=== PATIENT | female | born 1975 | race Caucasian/White ===

== ENCOUNTER → 2017-09-20 15:52 | Outpatient (CLI) | payer BC, SELFPAY ==
--- NOTE | 2017-09-20 15:57 | XR_ITS ---
XR knee LT 3V HISTORY: Left knee pain ITS.REASON: EFFUSION OFLEFT KNEE,LEFT KNEE PAIN ORDERING PHYSICIAN: Larissa Magallanes PATIENT AGE: 42 years COMPARISON: None FINDINGS: No fracture or dislocation. No lytic or blastic change. Normal mineralization. No significant arthritic changes evident. No other significant findings IMPRESSION: Negative Knee
== END ==
PROVIDERS: PCP Nurse Practitioner Family; Visit Provider Nurse Practitioner Family
DX: M25.462 Effusion, left knee (principal); M25.562 Pain in left knee
CPT/HCPCS: 73562

== ENCOUNTER → 2017-12-13 15:43 | Outpatient (CLI) | payer BC, SELFPAY ==
--- NOTE | 2017-12-13 15:46 | MR_ITS ---
MR knee LT wo con Ordering Physician: Tonie Dorsey Patient Age: 42 years: Female HISTORY: ITS.REASON: PAIN IN LEFT KNEE TECHNIQUE: Multiplanar multisequence imaging 1.5 T MR. COMPARISON :Plain films left knee 218 FINDINGS ACL and PCL intact. The medial collateral and lateral collateral ligament intact. Quadriceps tendon and patellar tendon intact Focal increased signal is seen at the medial aspect of the posterior patella likely reflecting bone contusion. I suspect there is a subtle chondral irregularity just beneath this area involving involving the medial aspect of posterior patella. Small joint effusion. Generous-sized patella. Only subtle lateral tilt or bias on the axial image. The cartilage posterior lateral aspect of patella is better maintained more homogeneous and intact The medial and lateral compartment are fairly well-maintained. No osteochondral defect. The medial lateral meniscus are intact IMPRESSION: 1. Osteochondral irregularity at medial aspect of patella. Chondral irregularities at medial aspect patella, along with focal area of increased bone just beneath the cartilage irregularity signal towards superior medial patella 2. Small joint effusion.
== END ==
PROVIDERS: PCP Nurse Practitioner Family; Visit Provider Nurse Practitioner
DX: M25.562 Pain in left knee (principal); M25.462 Effusion, left knee
CPT/HCPCS: 73721

== ENCOUNTER → 2018-04-01 14:23 | Outpatient (CLI) | payer BC, SELFPAY ==
--- NOTE | 2018-04-01 14:42 | XR_ITS ---
XR chest 2V HISTORY: ITS.REASON: ASTHMA,HTN ORDERING PHYSICIAN: Larissa Magallanes PATIENT AGE: 42 years COMPARISON: 02/21/2016 FINDINGS: Unremarkable cardiovascular structures. There is evidence of old granulomatous disease. No lobar consolidation or collapse. No acute bony anomalies. IMPRESSION: Old granulomatous disease, no change with no acute finding
[2018-04-01 15:52] LABS: Activated Partial Thrombo Time 25.8 seconds (23.6-34.0); INR 0.93 (0.9-1.1); Prothrombin Time 9.6 seconds (9.4-11.8)
[2018-04-01 15:55] LABS: Basophils % 0.5 % (0.1-2.0); Eosinophils # 0.1 K/mm3 (0.0-0.4); Eosinophils % 0.6 % (0.1-12.0); Hemoglobin 13.5 g/dL (12.2-16.2); Lymphocytes # 2.3 K/mm3 (0.7-4.5); Lymphocytes % 28.7 K/mm3 (10-50); Mean Corpuscular HGB Conc 32.1 g/dL (31.8-35.4); Mean Corpuscular Hemoglobin 30.1 pg (27.0-31.2); Mean Corpuscular Volume 93.9 fl (81-99); Mean Platelet Volume 6.8 fl (7.4-10.4); Monocytes # 0.6 K/mm3 (0.1-1.0); Monocytes % 6.9 % (1.7-9.3); Neutrophils % 63.3 % (37.0-80.0); Platelet Count 286 K/mm3 (142-424); Red Blood Count 4.47 M/mm3 (4.20-5.40); Red Cell Distribution Width 13.7 % (11.5-17.5)
[2018-04-01 16:50] LABS: Alanine Aminotransferase 37 U/L (12-78); Albumin Level 4.1 gm/dL (3.4-5.0); Albumin/Globulin Ratio 1.1 (1.1-1.8); Alkaline Phosphatase 69 U/L (46-116); Aspartate Amino Transferase 18 U/L (15-37); Bilirubin,Total 0.2 mg/dL (0.2-1.0); Blood Urea Nitrogen 18 mg/dL (7-18); Calcium 8.7 mg/dL (8.5-10.1); Carbon Dioxide 28 mmol/L (21.0-32.0); Chloride 102 mmol/L (98-107); Creatinine,Serum 0.89 mg/dL (0.55-1.02); Estimated Glomerular Filt Rate 69 ml/min (>60); GFR (African American) 83 ML/MIN (>60); Globulin 3.6 gm/dl (1.3-3.2); Glucose 84 mg/dL (74-106); Sodium 141 mmol/L (136-145); Total Protein,Serum 7.7 gm/dL (6.4-8.2)
== END ==
PROVIDERS: PCP Nurse Practitioner Family; Visit Provider Nurse Practitioner Family
DX: Z01.818 Encounter for other preprocedural examination (principal)
CPT/HCPCS: 36415; 71046; 80053; 85025; 85610; 85730; 93005

== ENCOUNTER 2020-08-09 11:18 | Emergency (ER) | payer BC, SELFPAY ==
[2020-08-09 12:12] VITALS: BP 134/83; PULSE 81; RESP 16; TEMP 36.8; O2SAT 98; BMI 23.8
--- NOTE | 2020-08-09 12:15 | HMH.EDUTC ---
[facility] [place] Clinical Impression: Encounter for laboratory testing for COVID-19 virus Disposition: Home, Self-Care Condition on Discharge: Good Instructions: DI for COVID-19 (Suspected or Confirmed ), Coronavirus Disease 2019, COVID-19: Testing and Tracing, Preventing the Spread of Coronavirus Discharge Instructions Additional Instructions: *Monitor Temp, Over the counter Motrin or Tylenol as directed/as needed Tylenol every 4 hours and Motrin every 6 hours (as long as your family doctor has told you that you can take it) for fever or pain. and straight to ER if unable to lower temp less than 101.0 after medication given Follow up IMMEDIATELY for new or worsening symptoms or no Noticeable improvement over the next 48-72 hours. 911 for difficulty breathing or swallowing You were tested for today for COVID19 your test result should be back in the next 24-48 hours, you may call to the [facility] to see if your test results are back in the next 48 hours [phone] [facility] hours are 9am-9pm You was given a handout with instructions for Self Quarantine and Self isolation for while you wait on test results and what to do if they are positive If you are positive the Health Dept will be contacting you also Referrals: Marco Girard MD [Primary Care Provider] - As needed Time of Disposition: 12:15 Medical Decision Making - David Inquiry Pt receiving controlled substance: No David was queried for this patient: No Vital Signs: 08/09/20 12:12 Temperature 98.2 F Temperature Source Oral Pulse Rate [Right] 81 Respiratory Rate 16 Blood Pressure [Right Arm] 134/83 Blood Pressure Mean [Right Arm] 100 Blood Pressure Source [Right Arm] Automatic Cuff Blood Pressure Position [Right Arm] Sitting 02 Sat by Pulse Oximetry 98 Oxygen Delivery Method Room Air Orders (Tests/Meds): ORDERS Category Date Time Status Covid-19 Nasal PCR ([facility]) Routine Lab 08/09/20 11:24 [place] [facility] [place] - General Stated complaint: wants covid test Time Seen by Provider: 08/09/20 12:16 Mode of Arrival: Ambulatory Source of Information: Patient Limitations: No Limitations Description of Symptoms (Recalled from Triage Doc. by RN): needs covid exam for procedure on wednesday HEENT Symptoms (Recalled from RN notes): No Resp Symptoms (Recalled from RN notes): No Skin Symptoms (Recalled from RN notes): No MS Symptoms (Recalled from RN notes): No Functional Status (Recalled from RN notes): na - History of Present Illness Provider Complaint: Patient state that she is suppose to have Procedure done on Wednesday so she come in today to get her COVID test and they was unable to find the order from Dr Ramsay so they had her come to the [facility] to get tested Denies any sympotms - Related Data Previous Rx's Medication Instructions Recorded Albuterol Sulfate [Albuterol HFA 1 - 2 puffs IH Q4-6H PRN #1 inh 10/23/18 Inhaler] Azithromycin [Z-Thomas 250mg Tab*] 250 mg PO UD DOSE PK #6 tab 10/23/18 Promethazine/Dextromethorphan 5 ml PO Q6HP PRN #240 syrup 10/23/18 [Promethazine-Dm Syrup] Hydrocodone/Chlorphen P-Stirex 5 ml PO BID 3 Days #49 thao.er.12h 03/29/19 [Tussionex Pennkinetic Susp] levoFLOXacin [Levaquin 750mg 750 mg PO DAILY #5 tab 03/29/19 tablet] predniSONE [Prednisone 50mg Tab] 50 mg PO DAILY 5 Days #5 tab 03/29/19 Azithromycin [Z-Thomas 250mg Tab*] 250 mg PO UD DOSE PK #6 tab 08/13/19 Benzonatate [Tessalon Perle 100mg 100 mg PO TIDP PRN #30 cap 08/13/19 Cap] Ondansetron [Zofran 4mg ODT] 4 mg PO Q8HP PRN #20 tab.rapdis 08/13/19 Allergies Allergy/AdvReac Type Severity Reaction Status Date / Time Penicillins [PENICILLINS] Allergy Mild Verified 10/23/18 09:57 hydrocodone Allergy Verified 08/13/19 18:30 - Worker's Comp Is this a Worker's Comp case?: No [facility] History - Hepatitis A Screen Drug use history?: No High risk sexual behaviors?: No History of sexually transmitted infection?: No 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
[2020-08-09 12:24] VITALS: BP 134/80; PULSE 80; RESP 16; TEMP 36.9; O2SAT 98
== END 2020-08-09 12:25 | disposition home or self-care (01) ==
PROVIDERS: Emergency Provider Nurse Practitioner; PCP Family Medicine
DX: Z11.52 Encounter for screening for COVID-19 (principal)
CPT/HCPCS: 99202; G0463; U0003

== ENCOUNTER 2020-08-12 07:28 | Day surgery (SDC) | payer BC, SELFPAY ==
[2020-08-12 07:56] VITALS: BMI 23.8
[2020-08-12 07:57] VITALS: BP 121/79; PULSE 82; RESP 16; TEMP 36.7; O2SAT 100
[2020-08-12 08:24] VITALS: O2SAT 97
--- NOTE | 2020-08-12 08:29 | P.PN_ITS ---
[facility] Anesthesia Checklist - Patient Identification Patient Identification: Arm Band - Structural Data Admitted From: Home Planned Operative Procedure/s: egd Consent for Planned Operative Procedure(s) Verified: Yes Verified Documents: Surgical Consent, History and Physical - NPO Status Verified Time NPO: 00:00 - Additional verifications Anesthesia Reactions: No - Airway Assessment C-Spine Mobility Assessed: Yes (mp2) TMJ Mobility Assessed: Yes Dentition: Good Dentition - Neurological Assessment Level of Consciousness: Awake, Alert - Anesthesia Plan Anesthesia Risk discussed: Yes Anesthesia Plan: Verified ASA Class: II Anesthesia Type: MAC [facility] History I have reviewed the patient's past medical history: Yes 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: Reports:: Asthma, Cancer (sm intestine ca), Hypertension, Palpitations Denies:: Diabetes Mellitus Type 1, Diabetes Mellitus Type 2, Internal Pacemaker, MRSA, Seizures *Have you ever received a pneumonia vaccine?: Yes *Have you received a flu vaccine this season?: Yes Anesthesia experience/problems:: nac Other Surgeries: Yes: Dilation and Curettage, Hysterectomy-Total, Other. No: Pacemaker Amputation: No Fractures: No - *Social History Last grade of school completed: Advanced degree Smoking Status: Never smoker Alcohol Intake: current Alcohol Intake Frequency:: a few times a week Substance Use Type: denies use *Occupational Status:: employed Housing: house Household Members: spouse *Travel in the last 8 weeks: None Family Hx:: Hyperlipidemia, Hypertension, Stroke
--- NOTE | 2020-08-12 08:31 | P.PCN_ITS ---
[facility] Procedure Note Procedure Note:: Upper Endoscopy Procedure Report: Esophagogastroduodenoscopy with cold biopsies and TTS balloon dilation Endoscopost: Kai Ramsay II, MD Referring Physician: Marco Girard MD Date of Procedure: August 12, 2019 Equipment: Olympus GIF 180 standard upper endoscope Sedation: MAC sedation Indications: Mrs. Hein is a 45-year-old female who is here for diagnostic/therapeutic upper endoscopy secondary to dysphagia. This has been going on over the last year. She has had increased choking and coughing with foods and has had more frequent clearance of the throat. She has globus sensation. She reports minor belching. She does not report heartburn or reflux. This is controlled with Protonix which she has been on for more than 14 years. 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 Mook Looney). She did have an upper endoscopy approximately 5 years ago which was normal. She does state that hydroxychloroquine has improved her bowel function. She reports no abdominal pain, chest pain or dyspepsia. She reports no nausea, early satiety or weight loss. She does report occasional bloating. Procedure: Prior to the procedure, a history and physical exam was performed, and patient's medications and allergies were reviewed. The risks, benefits and alternatives of the sedation and procedure were discussed with the patient. All questions were answered and informed consent was obtained. The patient was brought to the procedure room. Patient identification and proposed procedure were verified by the physician and the nurse. The patient was placed in a left lateral decubitus position and the scope was passed under direct vision. Throughout the procedure, the patient's blood pressure, pulse, and oxygen saturations were monitored continuously. The upper GI endoscopy was accomplished without difficulty. The patient tolerated the procedure well. Findings: The scope was passed directly into the upper esophagus and advanced to both the afferent and efferent limbs of the Hussein-en-Y anatomy post Whipple. Cold biopsies were taken from the jejunum. There was mild lymphoid stasis and bile reflux. The scope was then withdrawn through a normal bulb and pylorus. There was some erosion of the pyloric channel. There was also bile reflux within the stomach with linear reactive gastropathy of the antrum and body of the stomach. The remainder of the antrum, body and fundus of the stomach were grossly normal. Upon retroflexion there was a very small sliding 1 to 2 cm hiatal hernia. 2 biopsies were taken in the antrum and along the lesser curvature for histology to rule out gastritis and/or H pylori. The scope was then withdrawn into the esophagus. There was a serrated Z-line. Cold biopsies were taken at the GE junction. There were tertiary contractions and evidence of moderate esophageal dysmotility. The entire esophagus was dilated to 60 Taiwanese/20 mm with a TTS hydrostatic balloon. There was some resistance at the cricopharyngeus/cricopharyngeal spasm. The remainder of the esophageal mucosa was normal. Impression: 1. Cricopharyngeal spasm status post dilation to 20 mm 2. Nonerosive GERD with moderate esophageal dysmotility and very small sliding 1 to 2 cm hiatal hernia 3. Bile reflux with linear reactive gastropathy 4. Pyloric sparing Whipple with Hussein-en-Y anatomy 5. Pyloric channel erosion/reactive gastropathy Plan: I will follow-up the biopsies. We will discuss causes of her globus sensa tion and choking. I do feel that some of this is functional GERD. We will discuss dietary measures and treatment options.
[2020-08-12 08:43] VITALS: BP 111/66; PULSE 84; RESP 18; TEMP 36.7; O2SAT 100
[2020-08-12 08:53] VITALS: BP 124/67; PULSE 76; RESP 18; O2SAT 99
[2020-08-12 09:03] VITALS: BP 120/72; PULSE 72; RESP 18; O2SAT 100
[2020-08-12 09:16] VITALS: BP 118/66; PULSE 75; RESP 18; O2SAT 100
== END 2020-08-12 09:30 | disposition home or self-care (01) ==
PROVIDERS: PCP Family Medicine; Visit Provider Internal Medicine Gastroenterology
PROC: 0DJ08ZZ Inspection of Upper Intestinal Tract, Via Natural or Artificial Opening Endoscopic (ICD-10-PCS; CPT 43235; principal; 2020-08-12 12:00)
DX: R13.10 Dysphagia, unspecified (principal); J45.909 Unspecified asthma, uncomplicated; L94.9 Localized connective tissue disorder, unspecified; I10 Essential (primary) hypertension; K21.9 Gastro-esophageal reflux disease without esophagitis; K44.9 Diaphragmatic hernia without obstruction or gangrene; K22.4 Dyskinesia of esophagus; K31.9 Disease of stomach and duodenum, unspecified; J39.2 Other diseases of pharynx; Z85.068 Personal history of other malignant neoplasm of small intestine; Z83.438 Family history of other disorder of lipoprotein metabolism and other lipidemia; Z82.49 Family history of ischemic heart disease and other diseases of the circulatory system; Z82.3 Family history of stroke; Z90.710 Acquired absence of both cervix and uterus; Z88.5 Allergy status to narcotic agent; Z88.0 Allergy status to penicillin
CPT/HCPCS: 43249; 43239; C1726

== ENCOUNTER → 2020-08-20 14:22 | Outpatient (CLI) | payer BC, SELFPAY ==
--- NOTE | 2020-08-20 14:34 | XR_ITS ---
PROCEDURE: XR KNEE LT 4V CLINICAL INDICATION: left knee pain COMPARISON: DX [id number] XR knee LT 3V from 09/20/2017 FINDINGS: No fracture or dislocation. No lytic or blastic change. There is normal mineralization. The joint spaces are well-preserved. No significant degenerative/arthritic changes. No erosive changes evident. Other findings:None. IMPRESSION: No acute findings. Dictated by: Krishan Gibbs MD 08/20/2020 18:31 Krishan Gibbs MD in [place] 08/20/2020 18:31
== END ==
PROVIDERS: PCP Family Medicine; Visit Provider Orthopaedic Surgery
DX: M25.562 Pain in left knee (principal)
CPT/HCPCS: 73564

== ENCOUNTER → 2020-08-23 13:35 | Outpatient (CLI) | payer BC, SELFPAY ==
--- NOTE | 2020-08-23 13:35 | MR_ITS ---
PROCEDURE: MR KNEE LT WO CON CLINICAL INDICATION: LEFT KNEE PAIN SUPERIOR AND POSTERIOR TO PATELLA WITH NO KNOWN INJURY. EVALUATE FOR MENISCAL TEAR. COMPARISON: CR XR KNEE LT 4V from 08/20/2020 TECHNIQUE: Routine multiplanar multi echo sequences are performed without gadolinium enhancement. FINDINGS: Cruciate ligaments, and the medial collateral ligament has unremarkable appearance. There is thinning the fibular collateral ligament which could represent an old injury. There is a small amount of fluid deep to the fibular collateral ligament. No meniscal tear is evident. There is a small knee joint effusion. There is marked thinning/loss of the patellar cartilage medially with some subchondral cystic change of the patella at this area. The patellar tendon and quadriceps tendon are intact. The meniscofemoral ligaments appear intact. No evidence of patellar subluxation. IMPRESSION: 1. Thinning of the fibular collateral ligament which could be due to a partial tear. 2. 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 Dictated by: Krishan Gibbs MD 08/24/2020 06:32 Krishan Gibbs MD in [facility] 08/24/2020 06:32
== END ==
PROVIDERS: PCP Family Medicine; Visit Provider Orthopaedic Surgery
DX: M25.562 Pain in left knee (principal); G89.29 Other chronic pain
CPT/HCPCS: 73721

== ENCOUNTER 2020-09-10 15:46 | Outpatient (RCR) | payer BC, SELFPAY ==
--- NOTE | 2020-09-10 16:51 | HMH.PTOPEV ---
PT Outpatient Evaluation Rehab PT Outpatient Evaluation Start: 09/10/20 15:53 Freq: Status: Active Protocol: Document 09/10/20 15:54 JHONNYKATTY (Rec: 09/10/20 16:51 MARYJO [id number]) Electronically Signed By Almas Buchanan PT 09/10/20 15:54 Outpatient Therapy Subjective History Subjective History This is the initial Physical Therapy evaluation for Shaila Hein. Pt is a 45 y/o female referred to PT for c/o L knee pain. Pt reports she began having pain in L knee ~ 5 years ago. Pt reports insidious onset of pain, no traumatic incident. Pt reports she had steroid injxn and therapy previously without relief. Pt reports ~ 3 years ago she had arthroscopic sx for patellar cartilage debridement. Pt reports no pain relief w/ this either. Pt states she saw a new orthopedic sx and had another steroid injxn. Pt states this gave some relief for about a week . Pt now reports to PT for aquatic therapy. Chief Complaint Pain,Stiff Symptom Type Ache,Throb Symptoms Relieved By Nothing Symptoms Aggravated By Physical Activity Prior Functional Limitations None Current Functional Limitations Squatting,Recreation Activity, Walking,Stairs Symptom Description Intermittent Level of pain today (0-10) 0 Pain scale - at its best (0-10) 0 Pain scale - at its worst (0-10) 7 Hip/Knee Eval Gait Observation General Gait Pattern Observation No Deviations/Normal Assistive Device Assistive Devices None / NA Palpation Tenderness left Knee Palpation Finding None/Normal Hip Palpation Findings None/Normal MMT Hip Abduction Strength Grade 4 Good Hip Adduction Strength Grade 4 Good Hip External Rotation Strength Grade 4 Good Hip Internal Rotation Strength Grade 4 Good Knee Extension Strength Grade 5 Normal Knee Flexion Strength Grade 5 Normal ROM bilateral Hip ROM Reason Not Measured Within Functional Limits Knee Extension Active Range of Motion ( 0 degrees) Knee Extension Passive Range of Motion ( 0 degrees) Knee Flexion Active Range of Motion ( 130 degrees)
== END 2020-09-10 15:55 | disposition home or self-care (01) ==
LOC: PT 15:46
PROVIDERS: PCP Family Medicine; Visit Provider Orthopaedic Surgery
DX: M17.12 Unilateral primary osteoarthritis, left knee (principal)
CPT/HCPCS: 97110; 97163

== ENCOUNTER 2021-02-22 14:12 | Emergency (ER) | payer BC, SELFPAY ==
[2021-02-22 14:32] VITALS: BP 138/75; PULSE 69; RESP 14; TEMP 36.7; O2SAT 99; BMI 23.6
--- NOTE | 2021-02-22 14:51 | HMH.EDUTC ---
[facility] [place] Disposition Clinical Impression: Vaccine for [id number], combined Disposition: Home, Self-Care Condition on Discharge: Good Instructions: Diphtheria, Tetanus, and Pertussis (DTaP) Vaccine Additional Instructions: follow up if any s/s of infection Referrals: Marco Girrad MD [Primary Care Provider] - Time of Disposition: 14:59 Medical Decision Making - David Inquiry Pt receiving controlled substance: No Vital Signs: 02/22/21 14:32 Temperature 98.1 F Temperature Source Oral Pulse Rate [Left] 69 Respiratory Rate 14 Blood Pressure [Right Arm] 138/75 Blood Pressure Mean [Right Arm] 96 02 Sat by Pulse Oximetry 99 Oxygen Delivery Method Room Air Orders (Tests/Meds): ED MEDICATIONS Discontinued Medications Generic Name Dose Route Start Last Admin Trade Name Freq PRN Reason Stop Dose Admin Tetanus/Reduced Diphtheria/Acell Pertussis 0.5 ml 02/22/21 14:39 02/22/21 14:43 Tet/Diphth/Pert-Adult 0.5ml Syringe IM 02/22/21 14:40 0.5 ml .ONCE ONE Administration [facility] [place] HPI - General Chief complaint: Urgent Treatment Center Stated complaint: AO 02/22/21 cut head on ladder Time Seen by Provider: 02/22/21 14:51 Mode of Arrival: Ambulatory Source of Information: Patient Limitations: No Limitations Description of Symptoms (Recalled from Triage Doc. by RN): pt accidentally hit her head on the under side of a ladder. pt has a scratch on her forehead. she does not want seen for anything besides a tetnus shot. HEENT Symptoms (Recalled from RN notes): No Resp Symptoms (Recalled from RN notes): No Skin Symptoms (Recalled from RN notes): No MS Symptoms (Recalled from RN notes): No Functional Status (Recalled from RN notes): na - History of Present Illness Provider Complaint: 45 yr old female presents for a tetnus vaccine.pt accidentally hit her head on the under side of a ladder. pt has a scratch on her forehead. she does not want seen for anything besides a tetnus shot - Related Data Home Medications Medication Instructions Recorded Confirmed Amitriptyline HCl 75 mg PO DAILY 08/12/20 10/30/20 Fluticasone Propionate [Flonase 1 spray NS DAILY 08/12/20 10/30/20 Allergy Relief NS] Fluticasone/Vilanterol [Breo 1 inh IH DAILY 08/12/20 10/30/20 Ellipta 200-25 Mcg INH] Hydroxychloroquine Sulfate 200 mg PO BID 08/12/20 10/30/20 [Plaquenil] Levocetirizine Dihydrochloride 10 mg PO DAILY 08/12/20 10/30/20 [Xyzal] Lisinopril/Hydrochlorothiazide 1 tab PO DAILY 08/12/20 10/30/20 [Zestoretic 10-12.5 mg Tablet] Montelukast Sodium [Singulair 10mg 10 mg PO PM 08/12/20 10/30/20 tablet] Naproxen [Naproxen 250mg Tab] 250 mg PO BID 08/12/20 10/30/20 Nebivolol HCl [Bystolic] 10 mg PO DAILY 08/12/20 10/30/20 Pantoprazole Sodium [Protonix 40mg 40 mg PO DAILY 08/12/20 10/30/20 (granule) packet] Tiotropium [place] [Spiriva 4 gm IH DAILY 08/12/20 10/30/20 Respimat] sulfaSALAzine [Sulfasalazine] 500 mg PO BID 08/12/20 10/30/20 levocetirizine 5 mg tablet 5 mg PO DAILY 08/20/20 10/30/20 Previous Rx's Medication Instructions Recorded Albuterol Sulfate [Albuterol HFA 1 - 2 puffs IH Q4-6H PRN #1 inh 10/23/18 Inhaler] Allergies Allergy/AdvReac Type Severity Reaction Status Date / Time Penicillins [PENICILLINS] Allergy Mild Verified 02/22/21 14:39 hydrocodone Allergy Verified 02/22/21 14:39 - Worker's Comp Is this a Worker's Comp case?: No [facility] History - Hepatitis A Screen Drug use history?: No High risk sexual behaviors?: No History of sexually transmitted infection?: No 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er?: No Do you have indoor plumbing?: Yes Do you have electricity?: Yes Attestation statement:: This patient has been screened for Hepatitis A risk factors. I have reviewed the patient's past medical history: Yes 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: Reports:: Anxiety, Asthma, Cancer, Hypertension, Palpitations Denies:: Diabetes Mellitus Type 1, Di
[2021-02-22 15:09] VITALS: BP 132/74; PULSE 65; RESP 14; TEMP 36.6
== END 2021-02-22 15:12 | disposition home or self-care (01) ==
PROVIDERS: Emergency Provider Nurse Practitioner Family; PCP Family Medicine
DX: S00.81XA Abrasion of other part of head, initial encounter (principal); W22.8XXA Striking against or struck by other objects, initial encounter; Y92.019 Unspecified place in single-family (private) house as the place of occurrence of the external cause; Z23 Encounter for immunization; F41.9 Anxiety disorder, unspecified; I10 Essential (primary) hypertension; J45.909 Unspecified asthma, uncomplicated; Z85.028 Personal history of other malignant neoplasm of stomach
CPT/HCPCS: 90471; 90715; 99202; G0463

== ENCOUNTER → 2021-06-27 16:17 | Outpatient (CLI) | payer BC, SELFPAY ==
[2021-06-27 17:29] LABS: Basophils # 0.1 K/mm3 (0-0.2); Basophils % 0.9 % (0.1-2.0); Eosinophils # 0.1 K/mm3 (0.0-0.4); Eosinophils % 0.8 % (0.1-12.0); Hemoglobin 13.2 g/dL (12.2-16.2); Lymphocytes # 2.1 K/mm3 (0.7-4.5); Mean Corpuscular HGB Conc 33.1 g/dL (31.8-35.4); Mean Corpuscular Hemoglobin 31.5 pg (27.0-31.2); Mean Corpuscular Volume 95.3 fl (81-99); Mean Platelet Volume 7.7 fl (7.4-10.4); Monocytes # 0.5 K/mm3 (0.1-1.0); Neutrophils # 4.9 K/mm3 (1.8-7.8); Neutrophils % 64.3 % (37.0-80.0); Platelet Count 321 K/mm3 (142-424); Red Cell Distribution Width 14.2 % (11.5-17.5); White Blood Count 7.5 K/mm3 (4.8-10.8)
[2021-06-27 17:40] LABS: Alanine Aminotransferase 32 U/L (12-78); Albumin Level 4.4 g/dl (3.5-5.0); Albumin/Globulin Ratio 1.7 (1.1-1.8); Alkaline Phosphatase 64 U/L (38-126); Anion Gap 9.7 mEq/L (5-15); Aspartate Amino Transferase 42 U/L (14-36); Bilirubin,Total 0.2 mg/dl (0.2-1.3); Blood Urea Nitrogen 12 mg/dl (7-17); Carbon Dioxide 30 mmol/L (22.0-30.0); Chloride 100 mmol/L (98-107); Estimated Glomerular Filt Rate 90 ml/min (>60); GFR (African American) 109 ML/MIN (>60); Globulin 2.6 g/dL (1.3-3.2); Glucose 82 mg/dl (74-100); Potassium 4.7 mmoL/L (3.5-5.1); Sodium 135 mmol/L (136-145)
[2021-06-27 17:45] LABS: C-Reactive Protein 2.2 mg/L (0-4)
[2021-06-27 18:28] LABS: Erythrocyte Sedimentation Rate 14 mm/hr (0-20)
[2021-06-27 20:51] LABS: 25-OH Vitamin D, Total 46.4 ng/mL (30-100)
[2021-07-02 00:07] LABS: Immunoglobulin E, Total 15 IU/mL (6-495)
== END ==
PROVIDERS: Nurse Practitioner; Visit Provider Internal Medicine Rheumatology
DX: M06.09 Rheumatoid arthritis without rheumatoid factor, multiple sites (principal); R76.8 Other specified abnormal immunological findings in serum; J45.50 Severe persistent asthma, uncomplicated
CPT/HCPCS: 36415; 80053; 82306; 82785; 85025; 85651; 86140

== ENCOUNTER → 2021-07-08 16:38 | Outpatient (CLI) | payer BC, SELFPAY | PROVIDERS: PCP Family Medicine; Visit Provider Nurse Practitioner | DX: Z20.822 Contact with and (suspected) exposure to COVID-19 (principal) | CPT/HCPCS: C9803; U0003; U0005 ==

== ENCOUNTER → 2021-09-15 15:14 | Outpatient (CLI) | payer BC, SELFPAY | PROVIDERS: PCP Family Medicine; Visit Provider Nurse Practitioner | DX: Z20.822 Contact with and (suspected) exposure to COVID-19 (principal) | CPT/HCPCS: C9803; U0003; U0005 ==

== ENCOUNTER → 2021-09-24 16:10 | Outpatient (CLI) | payer BC, SELFPAY ==
--- NOTE | 2021-09-24 16:21 | XR_ITS ---
PROCEDURE INFORMATION: Exam: XR Left Hand Exam date and time: 09/24/2021 4:21 PM Age: 46 years old Clinical indication: Screening exam; Evaluate for ild , [facility] use of drug , lilli positive; Additional info: Polyarthritis w/ negative rheumatoid factor, bilat hand pain TECHNIQUE: Imaging protocol: XR Left hand. Views: 3 or more views. COMPARISON: No relevant prior studies available. FINDINGS: Bones/joints: Osseous anatomic alignment is well preserved. No acutely displaced fracture or dislocation. Joint spaces are well preserved. Soft tissues: No significant soft tissue swelling. IMPRESSION: 1. No acute skeletal pathology. 2. No osseous sequela of inflammatory arthropathy.
--- NOTE | 2021-09-24 16:21 | XR_ITS ---
PROCEDURE INFORMATION: Exam: XR Right Hand Exam date and time: 09/24/2021 4:21 PM Age: 46 years old Clinical indication: Screening exam; Polyarthritis w/ negative rheumatoid factor, bilat hand pain TECHNIQUE: Imaging protocol: XR Right hand. Views: 3 or more views. COMPARISON: No relevant prior studies available. FINDINGS: Bones/joints: Osseous anatomic alignment is well preserved. No acutely displaced fracture or dislocation. Joint spaces are well preserved. Soft tissues: No significant soft tissue swelling. IMPRESSION: 1. No acute skeletal pathology. 2. No osseous sequela of inflammatory arthropathy.
--- NOTE | 2021-09-24 16:21 | XR_ITS ---
PROCEDURE INFORMATION: Exam: XR Chest Exam date and time: 09/24/2021 4:21 PM Age: 46 years old Clinical indication: Screening exam; Other screening; Additional info: Evaluate for ild, [employer] use of drug; Gi positive TECHNIQUE: Imaging protocol: XR of the chest. Views: 2 views. COMPARISON: 1. CR XR CHEST 2V 08/13/2019 6:[address] CHEST W/O CONTRAST 07/14/2017 12:58 PM FINDINGS: Airway: Patent Lungs: Known and stable 3 mm calcified granuloma in the right upper lung is of no clinical concern. No acute interstitial or airspace disease. Pleural spaces: Unremarkable. No pleural effusion. No pneumothorax. Heart/Mediastinum: Calcified right hilar and mediastinal granulomas are stable and of no concern. Heart of normal size and morphology. 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 Bones/joints: No acute skeletal abnormality or aggressive osseous lesion. IMPRESSION: 1. No acute thoracic pathology. 2. No evidence for interstitial lung disease in this examination.
[2021-09-24 17:45] LABS: Alanine Aminotransferase 50 U/L (12-78); Albumin Level 4.6 g/dl (3.5-5.0); Albumin/Globulin Ratio 1.8 (1.1-1.8); Alkaline Phosphatase 77 U/L (38-126); Anion Gap 13.1 mEq/L (5-15); Aspartate Amino Transferase 61 U/L (14-36); Bilirubin,Total 0.6 mg/dl (0.2-1.3); Blood Urea Nitrogen 14 mg/dl (7-17); Calcium 8.8 mg/dl (8.4-10.2); Carbon Dioxide 26 mmol/L (22.0-30.0); Chloride 93 mmol/L (98-107); Estimated Glomerular Filt Rate 89 ml/min (>60); GFR (African American) 108 ML/MIN (>60); Globulin 2.6 g/dL (1.3-3.2); Glucose 84 mg/dl (74-100); Potassium 4.1 mmoL/L (3.5-5.1); Sodium 128 mmol/L (136-145); Total Protein,Serum 7.2 g/dl (6.3-8.2)
[2021-09-24 17:50] LABS: C-Reactive Protein 4.9 mg/L (0-4)
[2021-09-24 17:58] LABS: Basophils % 0.4 % (0.1-2.0); Eosinophils # 0.1 K/mm3 (0.0-0.4); Eosinophils % 0.6 % (0.1-12.0); Hematocrit 39.7 % (37.0-47.0); Hemoglobin 13.3 g/dL (12.2-16.2); Lymphocytes # 1.8 K/mm3 (0.7-4.5); Lymphocytes % 23.6 % (10-50); Mean Corpuscular HGB Conc 33.5 g/dL (31.8-35.4); Mean Corpuscular Hemoglobin 31.8 pg (27.0-31.2); Mean Corpuscular Volume 94.9 fl (81-99); Mean Platelet Volume 7.4 fl (7.4-10.4); Monocytes # 0.4 K/mm3 (0.1-1.0); Monocytes % 5.3 % (1.7-9.3); Neutrophils # 5.2 K/mm3 (1.8-7.8); Neutrophils % 69.9 % (37.0-80.0); Platelet Count 268 K/mm3 (142-424); Red Blood Count 4.19 M/mm3 (4.20-5.40); Red Cell Distribution Width 13.9 % (11.5-17.5); White Blood Count 7.5 K/mm3 (4.8-10.8)
[2021-09-24 18:25] LABS: Erythrocyte Sedimentation Rate 13 mm/hr (0-20)
== END ==
LOC: RAD 16:13
PROVIDERS: PCP Family Medicine; Visit Provider Internal Medicine Rheumatology
DX: M06.09 Rheumatoid arthritis without rheumatoid factor, multiple sites (principal); M79.641 Pain in right hand; M25.40 Effusion, unspecified joint; M25.50 Pain in unspecified joint; R76.8 Other specified abnormal immunological findings in serum; Z79.899 Other long term (current) drug therapy
CPT/HCPCS: 36415; 71046; 73130; 80053; 85025; 85651; 86140; 86704; 86706; 87340; 87350; 87380; 87522

== ENCOUNTER → 2021-09-29 11:52 | Outpatient (CLI) | payer BC, SELFPAY ==
[2021-10-01 22:25] LABS: QuantiFERON-TB Gold Plus Negative (Negative)
== END ==
PROVIDERS: Visit Provider Internal Medicine Rheumatology
DX: M06.09 Rheumatoid arthritis without rheumatoid factor, multiple sites (principal); R76.8 Other specified abnormal immunological findings in serum; Z79.899 Other long term (current) drug therapy
CPT/HCPCS: 36415; 86480

== ENCOUNTER → 2021-10-15 15:40 | Outpatient (CLI) | payer BC, SELFPAY ==
[2021-10-17 11:13] LABS: Hep B Core Ab, Total Negative (Negative); Hepatitis B Surface Antigen Negative (Negative)
[2021-10-24 13:55] LABS: Miscellaneous Test NEGATIVE
== END ==
PROVIDERS: PCP Family Medicine; Visit Provider Internal Medicine Rheumatology
DX: M06.09 Rheumatoid arthritis without rheumatoid factor, multiple sites (principal); R76.8 Other specified abnormal immunological findings in serum; Z79.899 Other long term (current) drug therapy
CPT/HCPCS: 86704; 87340; 87380

== ENCOUNTER 2021-10-29 04:43 | Emergency (ER) | payer BC, SELFPAY ==
[2021-10-29 04:45] VITALS: BP 128/76; PULSE 78; RESP 16; TEMP 37.1; O2SAT 98; BMI 23.8
--- NOTE | 2021-10-29 04:49 | XR_ITS ---
PROCEDURE INFORMATION: Exam: XR Left Ankle Exam date and time: 10/29/2021 4:53 AM Age: 46 years old Clinical indication: Injury or trauma; Other: Rolled/twisted ankle; Sprain or strain and swelling (edema); Right; Patient HX: Swelling to lateral malleolus TECHNIQUE: Imaging protocol: XR Left ankle. Views: 3 or more views. COMPARISON: MR KNEE LT WO CON 08/23/2020 1:46 PM FINDINGS: Bones/joints: No acute fracture or malalignment. Joint spaces are maintained. Soft tissues: Normal. IMPRESSION: No acute fracture or malalignment.
--- NOTE | 2021-10-29 05:06 | HMH.EDGENADL ---
ED Disposition Clinical Impression: Ankle sprain and strain Disposition: Home, Self-Care Condition on Discharge: Good Referrals: Larissa Magallanes APRN [Primary Care Provider] - - Critical Care Critical Care Time: No Attestation: On 10/29/21, the high probability of a clinically significant, sudden or life threatening deterioration of the following system(s) required my full and direct attention, intervention and personal management. The time I documented below is in addition to time spent performing reported procedures but includes the following listed in this critical care notation. Medical Decision Making - Medical Records Medical records reviewed: Yes: I reviewed the patient's medical records. - David Inquiry Pt receiving controlled substance: No Vital Signs: 10/29/21 04:45 Temperature 98.7 F Temperature Source Oral Pulse Rate [Left Radial] 78 Respiratory Rate 16 Blood Pressure [Right Arm] 128/76 Blood Pressure Mean [Right Arm] 93 02 Sat by Pulse Oximetry 98 Oxygen Delivery Method Room Air Orders (Tests/Meds): ORDERS Category Date Time Status Ankle XR - Left minimum 3 Views [XR ankle LT min 3V] Exams 10/29/21 04:49 Ordered Stat Medical Decision Narrative: Patient is a 46-year-old female presents the ED today for evaluation of left ankle pain after a fall. Patient is well-appearing on initial evaluation no acute distress, vital signs within normal limits and stable. We have gotten an x-ray 3 view of the left ankle, on my clinical examination I have low concern for fracture, however patient does have significant swelling on that side, will order rule out malleolar fracture. X-ray on independent interpretation does not show any evidence of fracture. Patient will be able to tolerate weightbearing, we have instructed on rest ice compression elevation therapy. Patient discharged in stable condition with return precautions and follow-up with primary care. General Adult HPI - General Chief complaint: Extremity Injury, Lower Stated complaint: AO stepped off step rolled ankle 0330 Time Seen by Provider: 10/29/21 05:06 Mode of Arrival: Ambulatory Limitations: No Limitations Description of Symptoms (Recalled from ER Triage Doc. by RN): PT REPORTS SHE TWISTED HER LEFT ANKLE AND IS NOW HAVING DULL PAIN. PT CAME WITH CRUTCHES FROM HOME. - History of Present Illness HPI narrative: Patient is a 46-year-old female who presents the ED today for further evaluation of left ankle pain. Patient was walking her dog earlier this morning, states that she rolled her ankle accidentally and has swelling on the lateral aspect of her left ankle. Patient states she is rolled her ankle in the past, but states that she felt a pop today, was having difficulty bearing weight, patient presents with crutches that they had at home from their son who had had multiple ankle injuries in the past. Patient states she did not fall pass out lose consciousness or hit her head. - Related Data Home Medications Medication Instructions Recorded Confirmed Amitriptyline HCl 75 mg PO DAILY 08/12/20 10/30/20 Fluticasone Propionate [Flonase 1 spray NS DAILY 08/12/20 10/30/20 Allergy Relief NS] Fluticasone/Vilanterol [Breo 1 inh IH DAILY 08/12/20 10/30/20 Ellipta 200-25 Mcg INH] Hydroxychloroquine Sulfate 200 mg PO BID 08/12/20 10/30/20 [Plaquenil] Levocetirizine Dihydrochloride 10 mg PO DAILY 08/12/20 10/30/20 [Xyzal] Lisinopril/Hydrochlorothiazide 1 tab PO DAILY 08/12/20 10/30/20 [Zestoretic 10-12.5 mg Tablet] Montelukast Sodium [Singulair 10mg 10 mg PO PM 08/12/20 10/30/20 tablet] Naproxen [Naproxen 250mg Tab] 250 mg PO BID 08/12/20 10/30/20 Nebivolol HCl [Bystolic] 10 mg PO DAILY 08/12/20 10/30/20 Pantoprazole Sodium [Protonix 40mg 40 mg PO DAILY 08/12/20 10/30/20 (granule) packet] Tiotropium [place] [Spiriva 4 gm IH DAILY 08/12/20 10/30/20 Respimat] sulfaSALAzine [Sulfasalazine] 500
[2021-10-29 05:52] VITALS: BP 128/76; PULSE 78; RESP 16; TEMP 37.1; O2SAT 98
== END 2021-10-29 05:55 | disposition home or self-care (01) ==
PROVIDERS: Emergency Provider Student in an Organized Health Care Education/Training Program; PCP Nurse Practitioner Family
DX: S93.402A Sprain of unspecified ligament of left ankle, initial encounter (principal); X50.1XXA Overexertion from prolonged static or awkward postures, initial encounter; Y93.K1 Activity, walking an animal; Y92.89 Other specified places as the place of occurrence of the external cause; F41.9 Anxiety disorder, unspecified; I10 Essential (primary) hypertension; R00.2 Palpitations; Z79.899 Other long term (current) drug therapy
CPT/HCPCS: 73610; 99283

== ENCOUNTER 2021-11-16 09:07 | Emergency (ER) | payer BC, SELFPAY ==
[2021-11-16 09:29] VITALS: BP 128/79; PULSE 81; RESP 19; TEMP 36.7; O2SAT 98; BMI 23.8
--- NOTE | 2021-11-16 09:54 | HMH.EDUTC ---
[facility] [place] Dis[place] Clinical Impression: Asthma exacerbation Qualifiers: Asthma severity: unspecified severity Asthma persistence: unspecified Qualified Code(s): J45.901 - Unspecified asthma with (acute) exacerbation Disposition: Home, Self-Care Condition on Discharge: Good Instructions: Asthma -- Adult, DI for Asthma -- Adult Additional Instructions: Drink plenty of fluids. Take tylenol or ibuprofen for pain or fever. Take the medications as directed. Follow up with your regular doctor. GO TO THE ER FOR ANY WORSENING SYMPTOMS The cough medication (promethazine dm) will make you drowsy, so don't drive or operate heavy machinery after taking it. Prescriptions: Promethazine/Dextromethorphan [Promethazine-Dm Syrup] 5 ml PO Q6HP PRN #240 ml PRN Reason: Cough [facility] Benzonatate [Benzonatate 100mg cap] 100 mg PO TIDP PRN #30 cap PRN Reason: Cough Transmission Status: Received by [facility] methylPREDNISolone [Medrol] 4 mg PO DIRECTED 6 Days #21 packet Transmission Status: Received by [facility] Azithromycin [Z-Thomas 250mg Tab*] 250 mg PO UD DOSE PK #6 tab Transmission Status: Received by [facility] Referrals: Ugo Contreras MD [Primary Care Provider] - Forms: Work/School Release Time of Disposition: 10:26 Medical Decision Making - Medical Records Medical records reviewed: No: I reviewed the patient's medical records. - David Inquiry Pt receiving controlled substance: No Vital Signs: 11/16/21 09:29 11/16/21 10:33 Temperature 98.1 F 98.1 F Temperature Source Oral Pulse Rate 81 Pulse Rate [Left] 81 Respiratory Rate 19 19 Blood Pressure 128/79 Blood Pressure [Right Arm] 128/79 Blood Pressure Mean [Right Arm] 95 02 Sat by Pulse Oximetry 98 - Lab Data Lab results reviewed: Yes: I reviewed the patient's lab results. [facility] [place] HPI - General Stated complaint: SOA, cough Time Seen by Provider: 11/16/21 09:54 Mode of Arrival: Ambulatory Source of Information: Patient Limitations: No Limitations Description of Symptoms (Recalled from Triage Doc. by RN): pt c/o SOA and cough. pt states her asthma has been really bad and she can't get it under control with her meds at home. x1wk HEENT Symptoms (Recalled from RN notes): No Resp Symptoms (Recalled from RN notes): Yes Skin Symptoms (Recalled from RN notes): No MS Symptoms (Recalled from RN notes): No Functional Status (Recalled from RN notes): wnl - History of Present Illness Provider Complaint: She states that she has had a cough, chest congestion, wheezing, and feeling bad for the past 1 week. She has a history of asthma. She has been using her nebulizers and inhalers at home, but she believes it is time to take steroids. - Related Data Home Medications Medication Instructions Recorded Confirmed Amitriptyline HCl 75 mg PO DAILY 08/12/20 10/30/20 Fluticasone Propionate [Flonase 1 spray NS DAILY 08/12/20 10/30/20 Allergy Relief NS] Fluticasone/Vilanterol [Breo 1 inh IH DAILY 08/12/20 10/30/20 Ellipta 200-25 Mcg INH] Hydroxychloroquine Sulfate 200 mg PO BID 08/12/20 10/30/20 [Plaquenil] Levocetirizine Dihydrochloride 10 mg PO DAILY 08/12/20 10/30/20 [Xyzal] Lisinopril/Hydrochlorothiazide 1 tab PO DAILY 08/12/20 10/30/20 [Zestoretic 10-12.5 mg Tablet] Montelukast Sodium [Singulair 10mg 10 mg PO PM 08/12/20 10/30/20 tablet] Naproxen [Naproxen 250mg Tab] 250 mg PO BID 08/12/20 10/30/20 Nebivolol HCl [Bystolic] 10 mg PO DAILY 08/12/20 10/30/20 Pantoprazole Sodium [Protonix 40mg 40 mg PO DAILY 08/12/20 10/30/20 (granule) packet] Tiotropium [place] [Spiriva 4 gm IH DAILY 08/12/20 10/30/20 Respimat] sulfaSALAzine [Sulfasalazine] 500 mg PO BID 08/12/20 10/30/20 levocetirizine 5 mg tablet 5 mg PO DAILY 08/20/20 10/30/20 Previous Rx's Medication Instructions Recorded Albuterol Sulfate [Albuterol HFA 1 - 2 puffs IH Q
[2021-11-16 10:33] VITALS: BP 128/79; PULSE 81; RESP 19; TEMP 36.7
== END 2021-11-16 10:41 | disposition home or self-care (01) ==
PROVIDERS: Emergency Provider Nurse Practitioner Family; PCP Family Medicine
DX: J45.901 Unspecified asthma with (acute) exacerbation (principal); R00.2 Palpitations; I10 Essential (primary) hypertension; M19.90 Unspecified osteoarthritis, unspecified site; F41.9 Anxiety disorder, unspecified; Z79.51 Long term (current) use of inhaled steroids; Z79.52 Long term (current) use of systemic steroids; Z88.0 Allergy status to penicillin; Z88.5 Allergy status to narcotic agent; Z88.6 Allergy status to analgesic agent; Z85.9 Personal history of malignant neoplasm, unspecified; Z82.49 Family history of ischemic heart disease and other diseases of the circulatory system; Z83.438 Family history of other disorder of lipoprotein metabolism and other lipidemia
CPT/HCPCS: 99213; G0463

== ENCOUNTER 2021-11-19 15:35 | Outpatient (RCR) | payer BC, SELFPAY | END 2021-11-19 15:40 | disposition home or self-care (01) | LOC: PT 15:35 | PROVIDERS: PCP Nurse Practitioner Family; Visit Provider Internal Medicine Rheumatology | DX: M76.31 Iliotibial band syndrome, right leg (principal); M76.32 Iliotibial band syndrome, left leg | CPT/HCPCS: 97163 ==

== ENCOUNTER 2021-11-30 10:47 | Emergency (ER) | payer BC, SELFPAY ==
[2021-11-30 11:56] VITALS: BP 123/79; PULSE 71; RESP 18; TEMP 36.6; O2SAT 98; BMI 23.8
--- NOTE | 2021-11-30 11:59 | HMH.EDUTC ---
[facility] [place] Clinical Impression: Sinusitis Qualifiers: Sinusitis location: unspecified location Chronicity: acute Recurrence: non-recurrent Qualified Code(s): J01.90 - Acute sinusitis, unspecified Disposition: Home, Self-Care Condition on Discharge: Good Instructions: DI for Sinusitis Additional Instructions: Drink plenty of fluids. Take tylenol or ibuprofen for pain or fever. Take the medications as directed. Follow up with your regular doctor. GO TO THE ER FOR ANY WORSENING SYMPTOMS Don't start the oral steroids until tomorrow, since you had the shot here today. Prescriptions: methylPREDNISolone [Medrol] 4 mg PO DIRECTED 6 Days #21 packet Transmission Status: Pending to [facility] guaiFENesin [Mucinex 600mg tablet] 1 - 2 tab PO BIDP PRN #30 tab PRN Reason: Congestion Transmission Status: Pending to [facility] Azithromycin [Z-Thomas 250mg Tab*] 250 mg PO UD DOSE PK #6 tab Transmission Status: Pending to [facility] Referrals: Ugo Contreras MD [Primary Care Provider] - Forms: Work/School Release Time of Disposition: 13:32 Medical Decision Making - Medical Records Medical records reviewed: No: I reviewed the patient's medical records. - David Inquiry Pt receiving controlled substance: No Vital Signs: 11/30/21 11:56 Temperature 97.8 F Temperature Source Oral Pulse Rate [Left] 71 Respiratory Rate 18 Blood Pressure [Right Arm] 123/79 Blood Pressure Mean [Right Arm] 93 02 Sat by Pulse Oximetry 98 - Lab Data Lab results reviewed: Yes: I reviewed the patient's lab results. Lab Results 11/30/21 11:52: Group A Strep Rapid Negative 11/30/21 13:02: Influenza Type A Ag Negative, Influenza Type B Ag Negative Orders (Tests/Meds): ORDERS Category Date Time Status Strep Screen Confirmation Stat Micro 11/30/21 11:52 [place] [facility] [place] - General Stated complaint: ear pain, not focusing Time Seen by Provider: 11/30/21 11:59 - History of Present Illness Provider Complaint: She states that for the past 2 days she has had sore throat, head ache, malaise, and dizziness at times. She also states that she feels so bad that she has not been able to focus on anything. - Related Data Home Medications Medication Instructions Recorded Confirmed Amitriptyline HCl 75 mg PO DAILY 08/12/20 10/30/20 Fluticasone Propionate [Flonase 1 spray NS DAILY 08/12/20 10/30/20 Allergy Relief NS] Fluticasone/Vilanterol [Breo 1 inh IH DAILY 08/12/20 10/30/20 Ellipta 200-25 Mcg INH] Hydroxychloroquine Sulfate 200 mg PO BID 08/12/20 10/30/20 [Plaquenil] Levocetirizine Dihydrochloride 10 mg PO DAILY 08/12/20 10/30/20 [Xyzal] Lisinopril/Hydrochlorothiazide 1 tab PO DAILY 08/12/20 10/30/20 [Zestoretic 10-12.5 mg Tablet] Montelukast Sodium [Singulair 10mg 10 mg PO PM 08/12/20 10/30/20 tablet] Naproxen [Naproxen 250mg Tab] 250 mg PO BID 08/12/20 10/30/20 Nebivolol HCl [Bystolic] 10 mg PO DAILY 08/12/20 10/30/20 Pantoprazole Sodium [Protonix 40mg 40 mg PO DAILY 08/12/20 10/30/20 (granule) packet] Tiotropium [place] [Spiriva 4 gm IH DAILY 08/12/20 10/30/20 Respimat] sulfaSALAzine [Sulfasalazine] 500 mg PO BID 08/12/20 10/30/20 levocetirizine 5 mg tablet 5 mg PO DAILY 08/20/20 10/30/20 Previous Rx's Medication Instructions Recorded Albuterol Sulfate [Albuterol HFA 1 - 2 puffs IH Q4-6H PRN #1 inh 10/23/18 Inhaler] Azithromycin [Z-Thomas 250mg Tab*] 250 mg PO UD DOSE PK #6 tab 11/16/21 Benzonatate [Benzonatate 100mg 100 mg PO TIDP PRN #30 cap 11/16/21 cap] Promethazine/Dextromethorphan 5 ml PO Q6HP PRN #240 ml 11/16/21 [Promethazine-Dm Syrup] methylPREDNISolone [Medrol] 4 mg PO DIRECTED 6 Days #21 11/16/21 packet Azithromycin [Z-Thomas 250mg Tab*] 250 mg PO UD DOSE PK #6 tab 11/30/21 guaiFENesin [Mucinex 600mg tablet] 1 - 2 tab PO BIDP PRN #30 tab 11/30/21 methylPREDNISolone [Medrol] 4 mg PO DIRECTED 6 Days #21
--- NOTE | 2021-11-30 12:09 | XR_ITS ---
PROCEDURE INFORMATION: Exam: XR Chest Exam date and time: 11/30/2021 12:05 PM Age: 46 years old Clinical indication: Cough; Additional info: Cough, congestion TECHNIQUE: Imaging protocol: XR of the chest. Views: 2 views. COMPARISON: CR XR CHEST 2V 09/24/2021 4:28 PM FINDINGS: Lungs: No focal airspace disease. Pleural spaces: Unremarkable. No pleural effusion. No pneumothorax. Heart/Mediastinum: Cardiomediastinal silhouette is within normal limits. Bones/joints: Unremarkable. IMPRESSION: No acute cardiopulmonary abnormality.
[2021-11-30 12:21] LABS: Strep Scrn Group A (Rapid) Negative (Negative)
[2021-11-30 13:17] LABS: UTC Influenza A Antigen Negative (Negative); UTC Influenza B Antigen Negative (Negative)
[2021-11-30 13:45] VITALS: BP 123/79; PULSE 71; RESP 18; TEMP 36.6
== END 2021-11-30 13:46 | disposition home or self-care (01) ==
PROVIDERS: Emergency Provider Nurse Practitioner Family; PCP Family Medicine
DX: J01.90 Acute sinusitis, unspecified (principal); F41.9 Anxiety disorder, unspecified; I10 Essential (primary) hypertension
CPT/HCPCS: 71046; 87430; 87804; 96372; 99213; G0463

== ENCOUNTER 2022-02-14 08:15 | Emergency (ER) | payer BC, SELFPAY ==
[2022-02-14 08:30] VITALS: BP 135/71; PULSE 78; RESP 19; TEMP 36.7; O2SAT 96; BMI 22.1
--- NOTE | 2022-02-14 08:45 | HMH.EDUTC ---
[facility] [place] Disposition Clinical Impression: Allergic rhinitis Qualifiers: Allergic rhinitis trigger: unspecified Allergic rhinitis seasonality: seasonal Qualified Code(s): J30.2 - Other seasonal allergic rhinitis Disposition: Home, Self-Care Condition on Discharge: Good Instructions: DI for Allergic Rhinitis Prescriptions: predniSONE [Prednisone 20mg Tab] 20 mg PO BID 5 Days #10 tab Transmission Status: Pending to [facility] Referrals: Latrice Valerio DO [Primary Care Provider] - Time of Disposition: 08:55 Medical Decision Making - David Inquiry Pt receiving controlled substance: No Vital Signs: 02/14/22 08:30 Temperature 98.1 F Temperature Source Oral Pulse Rate [Left Brachial] 78 Respiratory Rate 19 Blood Pressure [Left Arm] 135/71 Blood Pressure Mean [Left Arm] 92 Blood Pressure Source [Left Arm] Automatic Cuff Blood Pressure Position [Left Arm] Sitting 02 Sat by Pulse Oximetry 96 Oxygen Delivery Method Room Air [facility] [place] HPI - General Stated complaint: congestion, sore throat Time Seen by Provider: 02/14/22 08:50 Mode of Arrival: Ambulatory Source of Information: Patient Limitations: No Limitations Description of Symptoms (Recalled from Triage Doc. by RN): PATIENT C/O COUGH AND ALLERGY SYMPTOMS X 3 DAYS HEENT Symptoms (Recalled from RN notes): No Resp Symptoms (Recalled from RN notes): No Skin Symptoms (Recalled from RN notes): Yes MS Symptoms (Recalled from RN notes): No Functional Status (Recalled from RN notes): WNL - History of Present Illness Provider Complaint: Cough and congestion X 3-4 days. No fever. H/O allergies. Takes daily meds. Flying to [place] at the end of the week and would like to have something to dry her up before her trip. Onset (ago): day(s) (3) Location: face Radiation: non-radiation Severity: mild Consistency: constant Relieving factors: none Exacerbating factors: none Associated symptoms: denies other symptoms Treatments prior to arrival: other (allergy meds) - Related Data Home Medications Medication Instructions Recorded Confirmed Amitriptyline HCl 75 mg PO DAILY 08/12/20 10/30/20 Fluticasone Propionate [Flonase 1 spray NS DAILY 08/12/20 10/30/20 Allergy Relief NS] Fluticasone/Vilanterol [Breo 1 inh IH DAILY 08/12/20 10/30/20 Ellipta 200-25 Mcg INH] Hydroxychloroquine Sulfate 200 mg PO BID 08/12/20 10/30/20 [Plaquenil] Levocetirizine Dihydrochloride 10 mg PO DAILY 08/12/20 10/30/20 [Xyzal] Lisinopril/Hydrochlorothiazide 1 tab PO DAILY 08/12/20 10/30/20 [Zestoretic 10-12.5 mg Tablet] Montelukast Sodium [Singulair 10mg 10 mg PO PM 08/12/20 10/30/20 tablet] Naproxen [Naproxen 250mg Tab] 250 mg PO BID 08/12/20 10/30/20 Nebivolol HCl [Bystolic] 10 mg PO DAILY 08/12/20 10/30/20 Pantoprazole Sodium [Protonix 40mg 40 mg PO DAILY 08/12/20 10/30/20 (granule) packet] Tiotropium [place] [Spiriva 4 gm IH DAILY 08/12/20 10/30/20 Respimat] sulfaSALAzine [Sulfasalazine] 500 mg PO BID 08/12/20 10/30/20 levocetirizine 5 mg tablet 5 mg PO DAILY 08/20/20 10/30/20 Previous Rx's Medication Instructions Recorded Albuterol Sulfate [Albuterol HFA 1 - 2 puffs IH Q4-6H PRN #1 inh 10/23/18 Inhaler] Azithromycin [Z-Thomas 250mg Tab*] 250 mg PO UD DOSE PK #6 tab 11/16/21 Benzonatate [Benzonatate 100mg 100 mg PO TIDP PRN #30 cap 11/16/21 cap] Promethazine/Dextromethorphan 5 ml PO Q6HP PRN #240 ml 11/16/21 [Promethazine-Dm Syrup] methylPREDNISolone [Medrol] 4 mg PO DIRECTED 6 Days #11/16/21 packet Azithromycin [Z-Thomas 250mg Tab*] 250 mg PO UD DOSE PK #6 tab 11/30/21 guaiFENesin [Mucinex 600mg tablet] 1 - 2 tab PO BIDP PRN #30 tab 11/30/21 methylPREDNISolone [Medrol] 4 mg PO DIRECTED 6 Days #11/30/21 packet predniSONE [Prednisone 20mg 20 mg PO BID 5 Days #10 tab 02/14/22 Tab] Allergies Allergy/AdvReac Type Severity Reaction Status Date / Time Penicillins [PENICILLINS] Allergy Mild Verified
[2022-02-14 08:57] VITALS: BP 135/71; PULSE 78; RESP 19; TEMP 36.7; O2SAT 96
== END 2022-02-14 09:10 | disposition home or self-care (01) ==
PROVIDERS: Emergency Provider Physician Assistant; PCP Internal Medicine
DX: J30.2 Other seasonal allergic rhinitis (principal); R09.81 Nasal congestion; R07.0 Pain in throat; R05.9 Cough, unspecified; I10 Essential (primary) hypertension; R00.2 Palpitations
CPT/HCPCS: 96372; 99212; G0463; J1040

== ENCOUNTER 2022-03-31 11:15 | Emergency (ER) | payer BC, SELFPAY ==
--- NOTE | 2022-03-31 11:28 | HMH.EDUTC ---
[facility] [place] Impression: Viral syndrome, Exposure to COVID-19 virus Disposition: Home, Self-Care Condition on Discharge: Good Instructions: Preventing the Spread of Coronavirus Discharge Instructions, DI for COVID-19 (Suspected or Confirmed ) Additional Instructions: Drink plenty of fluids. Take tylenol or ibuprofen for pain or fever. Take the medications as directed. Follow up with your regular doctor. GO TO THE ER FOR ANY WORSENING SYMPTOMS Quarantine until you know the results of your covid-19 test. Notify your school or workplace of your results and follow their instructions regarding return to work/school. Prescriptions: Ondansetron [Zofran 4mg ODT] 4 mg PO Q8HP PRN #20 tab PRN Reason: Nausea Transmission Status: Pending to [facility] Benzonatate [Benzonatate 100mg cap] 100 mg PO TIDP PRN #30 cap PRN Reason: Cough Transmission Status: Pending to [facility] Referrals: Provider,Referral, [Primary Care Provider] - Time of Disposition: 11:55 Medical Decision Making - Medical Records Medical records reviewed: No: I reviewed the patient's medical records. - David Inquiry Pt receiving controlled substance: No Vital Signs: 03/31/22 11:33 Temperature 98.6 F Temperature Source Oral Pulse Rate [Left] 77 Respiratory Rate 18 Blood Pressure [Right Arm] 137/85 Blood Pressure Mean [Right Arm] 102 02 Sat by Pulse Oximetry 99 - Lab Data Lab results reviewed: Yes: I reviewed the patient's lab results. Orders (Tests/Meds): ORDERS Category Date Time Status Covid-19 Nasal PCR ([facility]) Routine Lab 03/31/22 11:34 Received [facility] [place] - General Stated complaint: Exposure to covid, headache, cough, bodyaches Time Seen by Provider: 03/31/22 11:28 - History of Present Illness Provider Complaint: She states that for the past 2 days she has had body aches, chills, low grade fever, and a dry cough. Her tested positive for covid-19 2 days ago. - Related Data Home Medications Medication Instructions Recorded Confirmed Amitriptyline HCl 75 mg PO DAILY 08/12/20 10/30/20 Fluticasone Propionate [Flonase 1 spray NS DAILY 08/12/20 10/30/20 Allergy Relief NS] Fluticasone/Vilanterol [Breo 1 inh IH DAILY 08/12/20 10/30/20 Ellipta 200-25 Mcg INH] Hydroxychloroquine Sulfate 200 mg PO BID 08/12/20 10/30/20 [Plaquenil] Levocetirizine Dihydrochloride 10 mg PO DAILY 08/12/20 10/30/20 [Xyzal] Lisinopril/Hydrochlorothiazide 1 tab PO DAILY 08/12/20 10/30/20 [Zestoretic 10-12.5 mg Tablet] Montelukast Sodium [Singulair 10mg 10 mg PO PM 08/12/20 10/30/20 tablet] Naproxen [Naproxen 250mg Tab] 250 mg PO BID 08/12/20 10/30/20 Nebivolol HCl [Bystolic] 10 mg PO DAILY 08/12/20 10/30/20 Pantoprazole Sodium [Protonix 40mg 40 mg PO DAILY 08/12/20 10/30/20 (granule) packet] Tiotropium [place] [Spiriva 4 gm IH DAILY 08/12/20 10/30/20 Respimat] sulfaSALAzine [Sulfasalazine] 500 mg PO BID 08/12/20 10/30/20 levocetirizine 5 mg tablet 5 mg PO DAILY 08/20/20 10/30/20 Previous Rx's Medication Instructions Recorded Albuterol Sulfate [Albuterol HFA 1 - 2 puffs IH Q4-6H PRN #1 inh 10/23/18 Inhaler] Azithromycin [Z-Thomas 250mg Tab*] 250 mg PO UD DOSE PK #6 tab 11/16/21 Benzonatate [Benzonatate 100mg 100 mg PO TIDP PRN #30 cap 11/16/21 cap] Promethazine/Dextromethorphan 5 ml PO Q6HP PRN #240 ml 11/16/21 [Promethazine-Dm Syrup] methylPREDNISolone [Medrol] 4 mg PO DIRECTED 6 Days #21 11/16/21 packet Azithromycin [Z-Thomas 250mg Tab*] 250 mg PO UD DOSE PK #6 tab 11/30/21 guaiFENesin [Mucinex 600mg tablet] 1 - 2 tab PO BIDP PRN #30 tab 11/30/21 methylPREDNISolone [Medrol] 4 mg PO DIRECTED 6 Days #21 11/30/21 packet predniSONE [Prednisone 20mg 20 mg PO BID 5 Days #10 tab 02/14/22 Tab] Benzonatate [Benzonatate 100mg 100 mg PO TIDP PRN #30 cap 03/31/22 cap] Ondansetron [Zofran 4mg ODT] 4 mg PO Q8H
[2022-03-31 11:33] VITALS: BP 137/85; PULSE 77; RESP 18; TEMP 37; O2SAT 99; BMI 23.8
[2022-03-31 11:57] VITALS: BP 137/85; PULSE 77; RESP 18; TEMP 37
== END 2022-03-31 12:00 | disposition home or self-care (01) ==
PROVIDERS: Emergency Provider Nurse Practitioner Family
DX: U07.1 COVID-19 (principal)
CPT/HCPCS: 99212; C9803; G0463; U0003; U0005

== ENCOUNTER → 2022-06-20 14:19 | Outpatient (CLI) | payer BC, SELFPAY ==
[2022-06-20 17:23] LABS: Occult Blood,Stool Negative (Negative)
[2022-06-27 01:13] LABS: Calprotectin, Fecal 47 ug/g (0-120)
[2022-07-02 14:15] LABS: Lactoferrin, Fecal, Quant. <1.00 ug/mL(g) (0.00-7.24)
== END ==
PROVIDERS: Visit Provider Internal Medicine Rheumatology
DX: M06.09 Rheumatoid arthritis without rheumatoid factor, multiple sites (principal); G57.00 Lesion of sciatic nerve, unspecified lower limb; K21.9 Gastro-esophageal reflux disease without esophagitis; Z79.899 Other long term (current) drug therapy; Z12.11 Encounter for screening for malignant neoplasm of colon
CPT/HCPCS: 82272; 83630; 83993; 87045; 87177; 87205; 87493; G0328

== ENCOUNTER → 2022-06-23 15:51 | Outpatient (CLI) | payer BC, SELFPAY | PROVIDERS: Visit Provider Internal Medicine Rheumatology | DX: R19.7 Diarrhea, unspecified (principal) | CPT/HCPCS: 87177 ==

== ENCOUNTER 2022-06-24 07:59 | Emergency (ER) | payer BC, SELFPAY ==
[2022-06-24 08:15] VITALS: BP 119/62; PULSE 59; RESP 19; TEMP 36.7; O2SAT 99; BMI 22.8
--- NOTE | 2022-06-24 08:29 | EXP.UTC ---
Discharge Plan Disposition Patient Disposition: Home, Self-Care Condition: Good Prescriptions Prescriptions: New prednisone 10 mg tablet 10 mg PO BID 5 Days Qty: 10 0RF azithromycin [Zithromax Z-Thomas] 250 mg tablet See Rx Instructions .ROUTE .COMPLEX 5 Days Qty: 6 0RF Rx Instructions: For 250 mg dose pack: take 500 mg today (day 1), then 250 mg for 4 days (days 2-5) No Action levocetirizine [Xyzal] 5 mg tablet 5 mg PO DAILY albuterol sulfate 18 GM HFA aerosol inhaler 1 - 2 puffs IH Q4-6H PRN (Reason: Shortness Of Breath Or Wheezing) Qty: 1 0RF methylprednisolone 4 MG tablets,dose pack 4 mg PO DIRECTED 6 Days Qty: 21 0RF azithromycin 250 MG tablet 250 mg PO UD DOSE PK Qty: 6 0RF Rx Instructions: Take two (2) tablets today, then one (1) tablet days #2 thru #5 benzonatate 100 MG capsule 100 mg PO TIDP PRN (Reason: Cough) Qty: 30 0RF promethazine-DM 120 ML syrup 5 ml PO Q6HP PRN (Reason: Cough) Qty: 240 0RF azithromycin 250 MG tablet 250 mg PO UD DOSE PK Qty: 6 0RF Rx Instructions: Take two (2) tablets today, then one (1) tablet days #2 thru #5 methylprednisolone 4 MG tablets,dose pack 4 mg PO DIRECTED 6 Days Qty: 21 0RF guaifenesin 600 MG tablet extended release 12hr 1 - 2 tab PO BIDP PRN (Reason: Congestion) Qty: 30 0RF benzonatate 100 MG capsule 100 mg PO TIDP PRN (Reason: Cough) Qty: 30 0RF ondansetron 4 MG tablet,disintegrating 4 mg PO Q8HP PRN (Reason: Nausea) Qty: 20 0RF sulfasalazine 500 MG tablet 500 mg PO BID amitriptyline 75 MG tablet 75 mg PO DAILY naproxen 250 MG tablet 250 mg PO BID montelukast 10 MG tablet 10 mg PO PM hydroxychloroquine 200 MG tablet 200 mg PO BID lisinopril-hydrochlorothiazide 1 EACH tablet 1 tab PO DAILY fluticasone propionate 9.9 ML spray,suspension 1 spray NS DAILY levocetirizine 5 MG tablet 10 mg PO DAILY nebivolol 10 MG tablet 10 mg PO DAILY pantoprazole 40 MG granules for susp in packet 40 mg PO DAILY tiotropium bromide 4 GM mist 4 gm IH DAILY fluticasone furoate-vilanterol 1 EACH blister with device 1 inh IH DAILY prednisone 20 MG tablet 20 mg PO BID 5 Days Qty: 10 0RF Referrals Follow up/Referrals: Provider,Referral, MD [Primary Care Provider] - See instructions Activity Restrictions/Add. Instructions Additional Instructions/Restrictions: *Monitor Temp, Over the counter Motrin or Tylenol as directed/as needed Tylenol every 4 hours and Motrin every 6 hours (as long as your family doctor has told you that you can take it) for fever or pain. and straight to ER if unable to lower temp less than 101.0 after medication given *Warm salt water gargles may help to soothe the throat *Throat Lozenges? *Warm fluids like tea with honey may help to soothe the throat? *Sleep elevated *Humidifier/Vaporizer Your throat swab was sent for culture. Those results are typically sent to your primary care. Be sure to follow up in 2-3 days with your family doctor/primary care physician if no improvement so they can review those result and treat if necessary. If you don?t have a primary care doctor, I recommend you get one but in the mean time, you will have to return to a walk in clinic Follow up IMMEDIATELY for new or worsening symptoms or no Noticeable improvement over the next 48-72 hours. 911 for difficulty breathing or swallowing Clinical Impressions Clinical Impression: Sinusitis Stand Alone Forms Stand Alone Forms: Work/School Release Instructions Patient Instructions: DI for Sinusitis, Sinusitis Discharge ED Provider[place] Latrice Ferreira [facility] [place] General Stated complaint: Sore throat, head congestion, ear pain Time Seen by Provider: 06/24/22 08:29 History of Present Illness Provider Complaint: Patient states that she hasnt felt well for several days States that
[2022-06-24 08:46] LABS: UTC Strep Screen (Rapid) Negative (Negative)
[2022-06-24 08:47] LABS: UTC Influenza A Antigen Negative (Negative); UTC Influenza B Antigen Negative (Negative)
[2022-06-24 08:55] VITALS: BP 119/62; PULSE 59; RESP 19; TEMP 36.7; O2SAT 99
== END 2022-06-24 08:58 | disposition home or self-care (01) ==
PROVIDERS: Emergency Provider Nurse Practitioner
DX: J02.9 Acute pharyngitis, unspecified (principal); H92.09 Otalgia, unspecified ear; R09.81 Nasal congestion; R11.0 Nausea; G43.909 Migraine, unspecified, not intractable, without status migrainosus; J45.909 Unspecified asthma, uncomplicated; Z79.899 Other long term (current) drug therapy; Z79.52 Long term (current) use of systemic steroids; Z79.51 Long term (current) use of inhaled steroids; Z88.8 Allergy status to other drugs, medicaments and biological substances; Z88.5 Allergy status to narcotic agent; Z88.6 Allergy status to analgesic agent; Z85.9 Personal history of malignant neoplasm, unspecified
CPT/HCPCS: 87804; 87880; 99213; G0463

== ENCOUNTER 2022-07-25 08:03 | Emergency (ER) | payer BC, SELFPAY ==
--- NOTE | 2022-07-25 08:29 | EXP.UTC ---
Discharge Plan Disposition Patient Disposition: Home, Self-Care Prescriptions Prescriptions: New azithromycin 250 mg tablet See Rx Instructions .ROUTE .COMPLEX Qty: 6 0RF Rx Instructions: For 250 mg dose pack: take 500 mg today (day 1), then 250 mg for 4 days (days 2-5) benzonatate 100 mg capsule 100 mg PO TID PRN (Reason: cough) Qty: 30 0RF No Action levocetirizine [Xyzal] 5 mg tablet 5 mg PO DAILY albuterol sulfate 18 GM HFA aerosol inhaler 1 - 2 puffs IH Q4-6H PRN (Reason: Shortness Of Breath Or Wheezing) Qty: 1 0RF methylprednisolone 4 MG tablets,dose pack 4 mg PO DIRECTED 6 Days Qty: 21 0RF azithromycin 250 MG tablet 250 mg PO UD DOSE PK Qty: 6 0RF Rx Instructions: Take two (2) tablets today, then one (1) tablet days #2 thru #5 benzonatate 100 MG capsule 100 mg PO TIDP PRN (Reason: Cough) Qty: 30 0RF promethazine-DM 120 ML syrup 5 ml PO Q6HP PRN (Reason: Cough) Qty: 240 0RF azithromycin 250 MG tablet 250 mg PO UD DOSE PK Qty: 6 0RF Rx Instructions: Take two (2) tablets today, then one (1) tablet days #2 thru #5 methylprednisolone 4 MG tablets,dose pack 4 mg PO DIRECTED 6 Days Qty: 21 0RF guaifenesin 600 MG tablet extended release 12hr 1 - 2 tab PO BIDP PRN (Reason: Congestion) Qty: 30 0RF benzonatate 100 MG capsule 100 mg PO TIDP PRN (Reason: Cough) Qty: 30 0RF ondansetron 4 MG tablet,disintegrating 4 mg PO Q8HP PRN (Reason: Nausea) Qty: 20 0RF sulfasalazine 500 MG tablet 500 mg PO BID amitriptyline 75 MG tablet 75 mg PO DAILY naproxen 250 MG tablet 250 mg PO BID montelukast 10 MG tablet 10 mg PO PM hydroxychloroquine 200 MG tablet 200 mg PO BID lisinopril-hydrochlorothiazide 1 EACH tablet 1 tab PO DAILY fluticasone propionate 9.9 ML spray,suspension 1 spray NS DAILY levocetirizine 5 MG tablet 10 mg PO DAILY nebivolol 10 MG tablet 10 mg PO DAILY pantoprazole [address] for susp in packet 40 mg PO DAILY tiotropium bromide 4 GM mist 4 gm IH DAILY fluticasone furoate-vilanterol 1 EACH blister with device 1 inh IH DAILY prednisone 20 MG tablet 20 mg PO BID 5 Days Qty: 10 0RF prednisone 10 mg tablet 10 mg PO BID 5 Days Qty: 10 0RF azithromycin [Zithromax Z-Thomas] 250 mg tablet See Rx Instructions .ROUTE .COMPLEX 5 Days Qty: 6 0RF Rx Instructions: For 250 mg dose pack: take 500 mg today (day 1), then 250 mg for 4 days (days 2-5) Referrals Follow up/Referrals: Stacy Valerio MD [Primary Care Provider] - See instructions Clinical Impressions Clinical Impression: Upper respiratory tract infection Instructions Patient Instructions: DI for Viral Upper Respiratory Infection -- Adult Discharge ED [place] [facility] [place] General Stated complaint: cough,congestion Time Seen by Provider: 07/25/22 08:25 History of Present Illness Provider Complaint: Pt relates that she started feeling poorly with a cough on Wednesday. 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 She reports strong cough, sinus pressure and congestion, post nasal drainage, and ear discomfort. She states that she has not taken anything for her symptoms. Related Data Home Medications Medication Instructions Recorded Confirmed amitriptyline 75 mg tablet 75 mg PO DAILY sleep 08/12/20 10/30/20 fluticasone furoate 200 1 inh IH DAILY allergies 08/12/20 10/30/20 mcg-vilanterol 25 mcg/dose inhalation powder fluticasone propionate 50 1 spray NS DAILY allergies 08/12/20 10/30/20 mcg/actuation nasal spray,suspension hydroxychloroquine 200 mg tablet 200 mg PO BID autoimmune 08/12/20 10/30/20 levocetirizine 5 mg tablet 10 mg PO DAILY allergies 08/12/20 10/30/20 lisinopril 10 1 tab PO DAILY bp 08/12/20 10/30/20 mg-hydrochlorothiazide 12.5 mg tablet
[2022-07-25 08:33] VITALS: BP 134/74; PULSE 79; RESP 19; TEMP 36.7; O2SAT 99; BMI 22.8
[2022-07-25 08:41] VITALS: BP 134/74; PULSE 79; RESP 19; TEMP 36.7
[2022-07-25 09:51] LABS: Coronavirus 19, PCR Not Detected (NotDetected); Influenza A, PCR Not Detected (NotDetected); Influenza B, PCR Not Detected (NotDetected)
== END 2022-07-25 08:44 | disposition home or self-care (01) ==
PROVIDERS: Emergency Provider Nurse Practitioner Family; PCP Internal Medicine
DX: J06.9 Acute upper respiratory infection, unspecified (principal)
CPT/HCPCS: 99212; C9803; G0463; U0003; U0005

== ENCOUNTER 2022-07-28 09:16 | Observation (INO) | payer BC, SELFPAY ==
[2022-07-28] VITALS (9 sets, daily range): BP systolic 70–118; BP diastolic 44–73; PULSE 69–98; RESP 18–20; TEMP 36.6–37.7; O2SAT 94–99; BMI 22.8; BMI 30.9
--- NOTE | 2022-07-28 09:49 | EXP.UTC ---
Discharge Plan Disposition Patient Disposition: Admitted As Inpatient Condition: Fair Clinical Impressions Clinical Impression: DARBY (acute kidney injury) Pneumonia Qualifiers: Pneumonia type: due to unspecified organism Laterality: bilateral Lung location: unspecified part of lung Qualified Code(s): J18.9 - Pneumonia, unspecified organism Discharge ED Provider: Ya Candelario [facility] [place] H[place] General Chief complaint: Upper Respiratory Infection Stated complaint: Cough SOA Fever Chills Mode of Arrival: Ambulatory Source of Information: Patient Limitations: No Limitations Time Seen by Provider: 07/28/22 09:49 Description of Symptoms (Recalled from Triage Doc. by RN): PATIENT C/O COUGH, FEVER, CHILLS, AND PAIN TO LEFT SIDE WHEN TAKING A DEEP BREATH X 1 WEEK HEENT Symptoms (Recalled from RN notes): No Resp Symptoms (Recalled from RN notes): Yes Skin Symptoms (Recalled from RN notes): No MS Symptoms (Recalled from RN notes): No Functional Status (Recalled from RN notes): WNL History of Present Illness Provider Complaint: Patient states that she has been sick for over a week States that she took a zpack and hasnt helped much States that she has started to have pain at times in her left rib area with deep breath and feeling weak States that she just started with fever yesterday States that she took an at home COVID test and it was negative but this morning she was feeling worse and feeling more weak and tired so she came in Related Data Home Medications Medication Instructions Recorded Confirmed hydroxychloroquine 200 mg tablet 200 mg PO BID autoimmune disease 08/12/20 07/28/22 levocetirizine 5 mg tablet 5 mg PO DAILY Allergy symptoms 08/12/20 07/28/22 fluticasone fur. 200 mcg-umeclid 1 ea inhalation DAILY COPD 07/28/22 07/28/22 62.5 mcg-vilant 25 mcg inhalat.powder (Trelegy Ellipta) fluticasone propionate 93 2 spray intranasal DAILY Allergy 07/28/22 07/28/22 mcg/actuation breath activated symptoms aerosol (Xhance) fremanezumab-vfrm 225 mg/1.5 mL 225 mg SQ MONTHLY migraine 07/28/22 07/28/22 subcutaneous auto-injector (Ajovy) prevention hydrochlorothiazide 12.5 mg tablet 12.5 mg PO DAILY High blood 07/28/22 07/28/22 pressure dqpfll-vycvjkhy-tdbblic 2 cap PO TID pancreatitis 07/28/22 07/28/22 36,000-114,000-180,000 unit capsule,delay rel (Creon) montelukast 10 mg tablet 10 mg PO PM Allergy symptoms 07/28/22 07/28/22 nebivolol 5 mg tablet (Bystolic) 5 mg PO DAILY blood pressure 07/28/22 07/28/22 pantoprazole 40 mg tablet,delayed 40 mg PO BID acid reflux 07/28/22 07/28/22 release tiotropium bromide 1.25 2 puff inhalation DAILY COPD 07/28/22 07/28/22 mcg/actuation mist for inhalation (Spiriva Respimat) topiramate 100 mg tablet 100 mg PO HS migraine prevention 07/28/22 07/28/22 Previous Rx's Medication Instructions Recorded albuterol sulfate 90 mcg/actuation 1 - 2 puffs IH Q4-6H PRN Shortness 10/23/18 aerosol inhaler Of Breath Or Wheezing #1 inh Allergies Allergy/AdvReac Type Severity Reaction Status Date / Time Penicillins [PENICILLINS] Allergy Mild Verified 07/25/22 08:37 codeine Allergy Verified 07/25/22 08:37 hydrocodone Allergy Verified 07/25/22 08:37 Worker's Comp Is this a Worker's Comp case?: No [facility] Disclaimer: The information contained in this section may have been updated after the patient was seen, as this information can be updated by other users. 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 (Updated 07/28/22 @ 16:01 by Anatoly Williamson MD) Asthma Cancer Colon cancer Hypertension Hypertension Migraine Surgical History History of cholecystectomy History of tubal ligation History of Whipple procedure Social History (Updated 07/28/22 @ 15:04 by Derrick Joel RN) Smoking Status: Never smoker second hand exposure: No alcohol intake: current substance use type: denies use current occupational status: employed Travel in the last 8 w
--- NOTE | 2022-07-28 10:25 | PC.NURSE ---
PATIENT SENT TO ER PER Juani VILLEGAS APRN FOR FURTHER EVALUATION. REPORT GIVEN TO Roxanne GUAMAN RN BY Juani VILLEGAS APRN
--- NOTE | 2022-07-28 10:40 | XR_ITS ---
FINAL REPORT CLINICAL HISTORY: cough, SOA, hypotension COMPARISON: November 2021 FINDINGS: The heart size is normal. The mediastinum is within normal limits. There is left base opacity consistent with pneumonia. There is a small left pleural effusion There is no pneumothorax. The bony thorax is intact. IMPRESSION: Left basilar pneumonia with small left pleural effusion. Reviewed, Interpreted and Dictated by Kvng Corbin III, MD Transcribed by Winston Chowdhury Authenticated and [facility]
--- NOTE | 2022-07-28 10:44 | HMH.EDGENADL ---
Discharge Plan Disposition Patient Disposition: Admitted As Inpatient Condition: Fair Clinical Impressions Clinical Impression: DARBY (acute kidney injury) Pneumonia Qualifiers: Pneumonia type: due to unspecified organism Laterality: bilateral Lung location: unspecified part of lung Qualified Code(s): J18.9 - Pneumonia, unspecified organism Discharge ED Provider: Ya Candelario General Adult HPI General Chief complaint: Upper Respiratory Infection Stated complaint: Cough SOA Fever Chills Time Seen by Provider: 07/28/22 09:49 Mode of Arrival: Ambulatory Source of Information: Patient Limitations: No Limitations Description of Symptoms (Recalled from ER Triage Doc. by RN): PATIENT C/O COUGH, FEVER, CHILLS, AND PAIN TO LEFT SIDE WHEN TAKING A DEEP BREATH X 1 WEEK History of Present Illness HPI narrative: This patient is a 47-year-old female with a history of rheumatoid arthritis on hydroxychloroquine and pancreatic cancer status post Whipple presenting to the emergency department for evaluation of fever, chills, cough, and shortness of breath. This started approximately 1 week ago, and she was evaluated on Wednesday at urgent treatment center. She was placed on azithromycin and sent home. She states that yesterday was the first day that she developed a fever, and today she woke up feeling much worse. She states that she has pain in the left side of her chest and feels that she is unable to take a deep breath. She states that she has had poor appetite and poor oral intake, and she also has had nausea and diarrhea. She denies any significant vomiting. She denies any blood in her stools or dark tarry stools. She takes hydrochlorothiazide for her blood pressure, which she did not take this morning. She went to urgent treatment center for evaluation initially, where she was noted to be hypotensive with a systolic blood pressure in the 70s. Given this, she was brought here for further evaluation. Related Data Home Medications Medication Instructions Recorded Confirmed amitriptyline 75 mg tablet 75 mg PO DAILY sleep 08/12/20 07/28/22 hydroxychloroquine 200 mg tablet 200 mg PO BID autoimmune 08/12/20 07/28/22 levocetirizine 5 mg tablet 10 mg PO DAILY allergies 08/12/20 07/28/22 lisinopril 10 1 tab PO DAILY bp 08/12/20 07/28/22 mg-hydrochlorothiazide 12.5 mg tablet nebivolol 10 mg tablet 10 mg PO DAILY heart rate 08/12/20 07/28/22 Previous Rx's Medication Instructions Recorded albuterol sulfate 90 mcg/actuation 1 - 2 puffs IH Q4-6H PRN Shortness 10/23/18 aerosol inhaler Of Breath Or Wheezing #1 inh Allergies Allergy/AdvReac Type Severity Reaction Status Date / Time Penicillins [PENICILLINS] Allergy Mild Verified 07/25/22 08:37 codeine Allergy Verified 07/25/22 08:37 hydrocodone Allergy Verified 07/25/22 08:37 [facility] Disclaimer: The information contained in this section may have been updated after the patient was seen, as this information can be updated by other users. 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 Physical Exam General General appearance: alert and in no apparent distress Comment: Mildly ill-appearing Head
--- NOTE | 2022-07-28 11:21 | PC.NURSE ---
contracted lab to come draw additional blood for blood cultures and lactic
[2022-07-28 11:28] LABS: Coronavirus 19, PCR Not Detected (NotDetected); Influenza A, PCR Not Detected (NotDetected)
[2022-07-28 11:29] LABS: Influenza B, PCR Not Detected (NotDetected)
[2022-07-28 11:29] LABS: Basophils # 0.1 K/mm3 (0-0.2); Basophils % 0.3 % (0.1-2.0); Eosinophils # 0.1 K/mm3 (0.0-0.4); Eosinophils % 0.4 % (0.1-12.0); Hemoglobin 13.5 g/dL (12.2-16.2); Lymphocytes # 0.9 K/mm3 (0.7-4.5); Lymphocytes % 5.9 % (10-50); Mean Corpuscular HGB Conc 33.6 g/dL (31.8-35.4); Mean Corpuscular Hemoglobin 31.1 pg (27.0-31.2); Mean Corpuscular Volume 92.5 fl (81-99); Mean Platelet Volume 8.2 fl (7.4-10.4); Monocytes # 0.5 K/mm3 (0.1-1.0); Monocytes % 3.2 % (1.7-9.3); Neutrophils # 14.3 K/mm3 (1.8-7.8); Neutrophils % 90.3 % (37.0-80.0); Platelet Count 213 K/mm3 (142-424); Red Blood Count 4.33 M/mm3 (4.20-5.40); Red Cell Distribution Width 13.3 % (11.5-17.5); White Blood Count 15.8 K/mm3 (4.8-10.8)
[2022-07-28 11:32] LABS: MANUAL DIFFERENTIAL MANUAL DIFFERENTIAL (MANUAL DIFF)
[2022-07-28 11:34] LABS: Alanine Aminotransferase 37 U/L (12-78); Albumin Level 3.8 g/dl (3.5-5.0); Albumin/Globulin Ratio 1.3 (1.1-1.8); Alkaline Phosphatase 83 U/L (38-126); Anion Gap 14.5 mEq/L (5-15); Aspartate Amino Transferase 44 U/L (14-36); Bilirubin,Total 0.7 mg/dl (0.2-1.3); Blood Urea Nitrogen 28 mg/dl (7-17); Carbon Dioxide 21 mmol/L (22.0-30.0); Chloride 95 mmol/L (98-107); Creatinine Clearance Estimated 38 mL/min (50-200); Estimated Glomerular Filt Rate 34 ml/min (>60); GFR (African American) 41 ML/MIN (>60); Glucose 85 mg/dl (74-100); Lipase 58 U/L (23-300); Potassium 3.5 mmoL/L (3.5-5.1); Sodium 127 mmol/L (136-145); Total Protein,Serum 6.8 g/dl (6.3-8.2)
[2022-07-28 11:39] LABS: D-Dimer 0.65 ug/mL (0.0-0.5)
[2022-07-28 11:40] LABS: Microscopic, Urine URINE MICROSCOPIC (MICROSCOPIC)
[2022-07-28 11:45] LABS: Appearance,Urine CLEAR (Clear); Blood, Urine Negative (Negative); Color,Urine YELLOW (Yellow); Glucose,Urine (UA) Negative (Negative); Ketones,Urine TRACE (Negative); Leukocyte Esterase,Urine Negative (Negative); Nitrate,Urine Negative (Negative); Protein,Urine 2+ (Negative); Specific Gravity, Urine >= 1.030 (1.005-1.030)
[2022-07-28 11:46] LABS: Lymphocytes % 7 % (10-50); Monocytes % 4 % (2-9); Neutrophils % 80 % (42-76); Platelet Estimate Normal; RBC Morphology Normal; Total Cells Counted 100
[2022-07-28 11:46] LABS: Bilirubin,Urine 1+ (Negative)
[2022-07-28 11:47] LABS: Bacteria,Urine Trace /lpf; Squamous Epithelial Cell,Urine Occasional #/hpf (0-5)
[2022-07-28 11:50] LABS: Troponin I < 0.01 ng/ml (0.00-0.034)
[2022-07-28 11:53] LABS: T4 (Thyroxine) 7.1 ug/dl (5.53-11.0)
--- NOTE | 2022-07-28 11:55 | CT_ITS ---
FINAL REPORT CLINICAL HISTORY: elevated dimer FINDINGS: Thin section axial CT images of the chest were obtained with contrast. 3D reformatted images were also obtained. This study was performed with techniques to keep radiation doses as low as reasonably achievable (ALARA). Individualized dose reduction techniques using automated exposure control or adjustment of mA and/or kV according to the patient's size were employed. Motion artifact obscures the lower lobe branches. There is no evidence of pulmonary embolism. There is no evidence of thoracic aortic aneurysm or dissection. There is lingular and left lower lobe consolidation consistent with pneumonia. There is mild right lung atelectasis or pneumonia. There are mildly enlarged mediastinal and left hilar nodes, favor reactive. Limited images of the upper abdomen are unremarkable. IMPRESSION: No evidence of pulmonary embolism. Findings consistent with pneumonia. Mild right lung atelectasis or pneumonia. Reviewed, Interpreted and Dictated by Kvng Corbin III, MD Transcribed by Corrina Dewey Authenticated and [facility]
--- NOTE | 2022-07-28 12:01 | EXP.PHA.CONS ---
Pharmacy Consult Date: 07/28/22 Time: 12:01 Referring provider: DR. MENESES Reason for Consult:: VANCOMYCIN DOSING Allergies Allergy/AdvReac Type Severity Reaction Status Date / Time Penicillins [PENICILLINS] Allergy Mild Verified 07/25/22 08:37 codeine Allergy Verified 07/25/22 08:37 hydrocodone Allergy Verified 07/25/22 08:37 Home Medications Medication Instructions Recorded Confirmed Type albuterol sulfate 90 mcg/actuation 1 - 2 puffs IH Q4-6H PRN Shortness 10/23/18 10/30/20 Rx aerosol inhaler Of Breath Or Wheezing #1 inh amitriptyline 75 mg tablet 75 mg PO DAILY sleep 08/12/20 10/30/20 History fluticasone furoate 200 1 inh IH DAILY allergies 08/12/20 10/30/20 History mcg-vilanterol 25 mcg/dose inhalation powder fluticasone propionate 50 1 spray NS DAILY allergies 08/12/20 10/30/20 History mcg/actuation nasal spray,suspension hydroxychloroquine 200 mg tablet 200 mg PO BID autoimmune 08/12/20 10/30/20 History levocetirizine 5 mg tablet 10 mg PO DAILY allergies 08/12/20 10/30/20 History lisinopril 10 1 tab PO DAILY bp 08/12/20 10/30/20 History mg-hydrochlorothiazide 12.5 mg tablet montelukast 10 mg tablet 10 mg PO PM allergies 08/12/20 10/30/20 History naproxen 250 mg tablet 250 mg PO BID Pain 08/12/20 10/30/20 History nebivolol 10 mg tablet 10 mg PO DAILY heart rate 08/12/20 10/30/20 History pantoprazole 40 mg granules 40 mg PO DAILY stomach 08/12/20 10/30/20 History delayed-release for susp in packet sulfasalazine 500 mg tablet 500 mg PO BID autoimmune 08/12/20 10/30/20 History tiotropium bromide 2.5 4 gm IH DAILY allergies 08/12/20 10/30/20 History mcg/actuation mist for inhalation levocetirizine 5 mg tablet (Xyzal) 5 mg PO DAILY 08/20/20 10/30/20 History azithromycin 250 mg tablet 250 mg PO UD DOSE PK #6 tabs 11/16/21 Rx benzonatate 100 mg capsule 100 mg PO TIDP PRN Cough #30 caps 11/16/21 Rx methylprednisolone 4 mg tablets in 4 mg PO DIRECTED 6 days #21 11/16/21 Rx a dose pack packets promethazine-DM 6.25 mg-15 mg/5 mL 5 ml PO Q6HP PRN Cough #240 mL 11/16/21 Rx oral syrup azithromycin 250 mg tablet 250 mg PO UD DOSE PK #6 tabs 11/30/21 Rx guaifenesin 600 mg tablet, 1 - 2 tab PO BIDP PRN Congestion 11/30/21 Rx extended release 12 hr #30 tabs methylprednisolone 4 mg tablets in 4 mg PO DIRECTED 6 days #21 11/30/21 Rx a dose pack packets prednisone 20 mg tablet 20 mg PO BID 5 days #10 tabs 02/14/22 Rx benzonatate 100 mg capsule 100 mg PO TIDP PRN Cough #30 caps 03/31/22 Rx ondansetron 4 mg disintegrating 4 mg PO Q8HP PRN Nausea #20 tabs 03/31/22 Rx tablet azithromycin 250 mg tablet See Rx Instructions PO .COMPLEX 5 06/24/22 Rx (Zithromax Z-Thomas) days #6 tabs prednisone 10 mg tablet 10 mg PO BID 5 days #10 tabs 06/24/22 Rx azithromycin 250 mg tablet See Rx Instructions PO .COMPLEX #6 07/25/22 Rx tabs benzonatate 100 mg capsule 100 mg PO TID PRN cough #30 caps 07/25/22 Rx New Prescriptions to Start Prescriptions: Height: 1.57 m Weight: 56.699 kg Laboratory Results:: Laboratory Results - last 24 hr 07/28/22 10:20: Urine Color Yellow, Urine Appearance Clear, Urine pH 5.0, Ur Specific [place] >= 1.030, Urine Protein 2+, Urine Glucose (UA) Negative, Urine Ketones Trace, Urine Blood Negative, Urine Nitrate Negative, Urine Bilirubin 1+ A, Urine Urobilinogen 1.0, Ur Leukocyte Esterase Negative, Urine RBC None, Urine WBC None, Ur Squamous Epith Cells Occasional, Urine Bacteria Trace 07/28/22 11:05: WBC 15.8 H, RBC 4.33, Hgb 13.5, Hct 40.0, MCV 92.5, MCH 31.1, MCHC 33.6, RDW 13.3, Plt Count 213, MPV 8.2, Neut % (Auto) 90.3 H, Lymph % (Auto) 5.9 L, [place] % (Auto) 3.2, Eos % (Auto) 0.4, Baso % (Auto) 0.3, Neut # (Auto) 14.3 H, Lymph # (Auto) 0.9, [place] # (Auto) 0.5, Eos # (Auto) 0.1, Baso # (Auto) 0.1, Total Counted 100, Neutrophils % (Manual) 80 H, Band Neutrophils % 9.0 H, Lymphocytes % (Manual) 7 L, Monocytes % (Manual) 4, Platelet Estimate Normal, RBC Morpholog
--- NOTE | 2022-07-28 12:02 | PC.NURSE ---
unable to collect second blood cultures, aware, ok to start antibiotics before collecting due to pt being a difficult stick
[2022-07-28 12:06] LABS: Thyroid Stimulating Hormone 0.95 uIU/mL (0.465-4.68)
[2022-07-28 12:06] LABS: Lactic Acid 1.7 mmol/L (0.7-2.1)
--- NOTE | 2022-07-28 12:28 | ECG_ITS ---
APPROVED REPORT Exam: Resting ECG HR:87 bpm ECG Measurements Heart Rate 87 AXES NH 155 P 71 QRSd 98 QRS 67 QT 373 T 61 QTc 418 Conclusion SINUS RHYTHM POSSIBLE LEFT ATRIAL ENLARGEMENT [-0.1mV P-WAVE IN V1/V2] MINIMAL ST DEPRESSION [0.025+ mV ST DEPRESSION] BORDERLINE ECG UNCONFIRMED REPORT Electronically signed by : Marco Schneider MD 07/28/2022 22:14:25
--- NOTE | 2022-07-28 13:04 | PC.NURSE ---
Ordered food tray for patient.
--- NOTE | 2022-07-28 13:49 | PC.NURSE ---
rounded on pt at this time. no needs voiced.
--- NOTE | 2022-07-28 13:53 | PC.NURSE ---
Case management has been called for admission; no answer
--- NOTE | 2022-07-28 13:54 | PC.NURSE ---
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
--- NOTE | 2022-07-28 14:17 | PC.NURSE ---
called report to faviola benjamin
--- NOTE | 2022-07-28 15:20 | EXP.HP ---
History of Present Illness *Admission Date: 07/28/22 *Reason for visit:: Shortness of breath *History of present illness: Patient is a 47-year-old woman with past medical history of rheumatoid arthritis, HTN, seasonal allergies, and migraine headaches who came to the ER today for 4 days of cough, fever, and shortness of breath. Patient went to an urgent care clinic on day of symptom onset and was given a Z-Thomas for an upper respiratory infection. Symptoms persisted and worsened today prompting a repeat visit to urgent treatment center. Blood pressure there was noted to be low and therefore patient was urged to go to the ER where blood pressure was again noted to be low and white blood cells elevated, creatinine elevated, and sodium low. Review of systems is also positive for some nausea and left-sided chest wall pain. [facility] Disclaimer: The information contained in this section may have been updated after the patient was seen, as this information can be updated by other users. 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 current occupational exposures/hazards: No caffeine: Yes Review of Systems Constitutional Constitutional: Reports as per HPI, Reports body ache(s), Reports chills, Reports fatigue, Reports fever(s) and Reports headache(s) Eyes Eyes: Denies blurry vision and Denies change in vision ENT Ears, Nose, Mouth, and Throat: Denies dizziness, Denies dysphagia and Reports headache(s) *Cardiovascular Cardiovascular: Reports chest pain, Denies chest pain with activity, Reports dyspnea, Reports dyspnea on exertion, Denies irregular heart rhythm and Denies syncope *Respiratory Respiratory: Reports chest congestion, Reports cough, Reports dyspnea, Reports dyspnea on exertion and Denies wheezing *Gastrointestinal Gastrointestinal: Denies abdominal pain, Denies constipation, Denies dysphagia, Reports nausea and Denies vomiting *Musculoskeletal Musculoskeletal: Denies abnormal gait, Denies back pain, Denies joint swelling, Denies limited range of motion, Denies muscle cramps, Denies muscle weakness, Reports myalgias and Denies numbness *Neurologic Neurologic: Denies abnormal gait, Denies abnormal speech, Denies confusion, Denies dizziness, Reports headache(s), Denies numbness and Denies syncope Psychiatric Psychiatric: Denies anxiety, Denies confusion and Denies depression Endocrine Endocrine: Reports fatigue Allergic/Immunologic Allergic/Immunologic: Denies wheezing Meds Home Medications and Allergies Home Medications Medication Instructions Recorded Confirmed Type albuterol sulfate 90 mcg/actuation 1 - 2 puffs IH Q4-6H PRN Shortness 10/23/18 07/28/22 Rx aerosol inhaler Of Breath Or Wheezing #1 inh hydroxychloroquine 200 mg tablet 200 mg PO BID autoimmune disease 08/12/20 07/28/22 History levocetirizine 5 mg tablet 5 mg PO DAILY Allergy symptoms 08/12/20 07/28/22 History fluticasone fur. 200 mcg-umeclid 1 ea inhalation DAILY COPD 07/28/22 07/28/22 History 62.5 mcg-vilant 25 mcg inhalat.powder (Trelegy Ellipta) fluticasone propionate 93 2 spray intranasal DAILY Allergy 07/28/22 07/28/22 History mcg/actuation breath activated symptoms aerosol (Xhance) fremanezumab-vfrm 225 mg/1.5 mL 225 mg SQ MONTHLY migraine 07/28/22 07/28/22 History subcutaneous auto-injector (Ajovy) prevention hydrochlorothiazide 12.5 mg tablet 12.5 mg PO DAILY High blood 07/28/22
[2022-07-29] VITALS: BP 95/53; PULSE 94; RESP 16; TEMP 36.9; O2SAT 92
[2022-07-29 04:00] VITALS: BP 106/54; PULSE 94; RESP 18; TEMP 37.9; O2SAT 97; BMI 23.8
--- NOTE | 2022-07-29 05:26 | PC.NURSE ---
pt has rested intermittently t/o shift, has remained on room air with O2 sats 94-97%, no complaints of SOA or pain, temperature up to 100.3 at 0400, PRN tylenol given at this time, has coughed t/o shift, expiratory wheezing heard on auscultation
[2022-07-29 06:39] LABS: Basophils % 0.2 % (0.1-2.0); Eosinophils % 0.3 % (0.1-12.0); Mean Corpuscular Hemoglobin 31.7 pg (27.0-31.2); Mean Corpuscular Volume 93.1 fl (81-99); Mean Platelet Volume 7.5 fl (7.4-10.4); Monocytes # 0.4 K/mm3 (0.1-1.0); Monocytes % 2.8 % (1.7-9.3); Neutrophils # 13.2 K/mm3 (1.8-7.8); Neutrophils % 89.7 % (37.0-80.0); Platelet Count 202 K/mm3 (142-424); Red Blood Count 3.65 M/mm3 (4.20-5.40); Red Cell Distribution Width 13.6 % (11.5-17.5); White Blood Count 14.7 K/mm3 (4.8-10.8)
[2022-07-29 06:42] LABS: MANUAL DIFFERENTIAL MANUAL DIFFERENTIAL (MANUAL DIFF)
[2022-07-29 06:44] LABS: Chloride 106 mmol/L (98-107); Sodium 134 mmol/L (136-145)
[2022-07-29 06:47] LABS: Alanine Aminotransferase 24 U/L (12-78); Albumin Level 2.8 g/dl (3.5-5.0); Albumin/Globulin Ratio 1.2 (1.1-1.8); Alkaline Phosphatase 107 U/L (38-126); Anion Gap 9.6 mEq/L (5-15); Aspartate Amino Transferase 30 U/L (14-36); Bilirubin,Total 0.2 mg/dl (0.2-1.3); Blood Urea Nitrogen 16 mg/dl (7-17); Calcium 7.7 mg/dl (8.4-10.2); Carbon Dioxide 21 mmol/L (22.0-30.0); Creatinine Clearance Estimated 63 mL/min (50-200); Estimated Glomerular Filt Rate 59 ml/min (>60); GFR (African American) 71 ML/MIN (>60); Globulin 2.4 g/dL (1.3-3.2); Glucose 96 mg/dl (74-100); Total Protein,Serum 5.2 g/dl (6.3-8.2)
[2022-07-29 06:48] LABS: Magnesium 2.3 mg/dl (1.6-2.3)
[2022-07-29 06:54] LABS: Hemoglobin 11.6 g/dL (12.2-16.2)
[2022-07-29 06:57] LABS: Potassium 2.6 mmoL/L (3.5-5.1)
[2022-07-29 07:47] LABS: Lymphocytes % 13 % (10-50); Monocytes % 3 % (2-9); Neutrophils % 84 % (42-76); Platelet Estimate Normal; RBC Morphology Normal; Total Cells Counted 100
[2022-07-29 08:00] VITALS: BP 112/61; PULSE 93; RESP 21; TEMP 37.1; O2SAT 95
[2022-07-29 10:09] LABS: Lactic Acid 0.7 mmol/L (0.7-2.1)
--- NOTE | 2022-07-29 10:36 | PC.NURSE ---
courtesy tech round: pt is ambulating around room. steady gait noted. No requests voiced at this time.
--- NOTE | 2022-07-29 11:47 | PC.NURSE ---
INSTRUCTED PATIENT WE NEED A SPUTUM SAMPLE. EXPLAINED REASONING FOR SPUTUM SAMPLE. PATIENT VERBALIZED UNDERSTANDING. SPECIMEN CUP PROVIDED AND PATIENT INSTRUCTED TO CALL OUT WHEN SHE WAS ABLE TO PRODUCE A SAMPLE.
[2022-07-29 12:00] VITALS: BP 115/64; PULSE 94; RESP 16; TEMP 37.1; O2SAT 97
[2022-07-29 12:50] LABS: Anion Gap 6.2 mEq/L (5-15); Blood Urea Nitrogen 16 mg/dl (7-17); Calcium 7.9 mg/dl (8.4-10.2); Carbon Dioxide 24 mmol/L (22.0-30.0); Chloride 112 mmol/L (98-107); Creatinine Clearance Estimated 70 mL/min (50-200); Estimated Glomerular Filt Rate 67 ml/min (>60); GFR (African American) 81 ML/MIN (>60); Glucose 103 mg/dl (74-100); Potassium 3.2 mmoL/L (3.5-5.1); Sodium 139 mmol/L (136-145)
--- NOTE | 2022-07-29 13:20 | EXP.DC.SUM ---
General Admission date:: 07/28/22 Discharge date: 07/29/22 HPI HPI HPI: Patient is a 47-year-old woman with past medical history of rheumatoid arthritis, HTN, seasonal allergies, and migraine headaches who came to the ER today for 4 days of cough, fever, and shortness of breath. Patient went to an urgent care clinic on day of symptom onset and was given a Z-Thomas for an upper respiratory infection. Symptoms persisted and worsened today prompting a repeat visit to urgent treatment center. Blood pressure there was noted to be low and therefore patient was urged to go to the ER where blood pressure was again noted to be low and white blood cells elevated, creatinine elevated, and sodium low. Review of systems is also positive for some nausea and left-sided chest wall pain. Hospital Course Hospital Course Hospital Course: Patient is a 47-year-old woman with past medical history of rheumatoid arthritis, HTN, seasonal allergies, and migraine headaches who was admitted yesterday for sepsis secondary to community-acquired pneumonia that was accompanied by hypotension and hyponatremia. Patient was maintained on room air throughout admission, however she did meet sepsis criteria with a leukocytosis of 15.0 and a heart rate greater than 90. Additionally consolidation was observed on chest x-ray. Patient was treated with vancomycin and cefepime in the ER, she will be discharged on Levaquin 500 mg p.o. for 5 days. Antihypertensives were held during admission given hypotension in the ER. I will defer restarting beta-cosnuelo until she follows up with her PCP next week, hydrochlorothiazide is discontinued as this may be the cause of her hyponatremia, which has resolved by time of discharge. Overnight patient's potassium dropped to 2.6. Patient was given potassium chloride 60 M EQ's p.o. this morning and potassium improved to 3.2. Patient was given an extra dose of potassium chloride 40 M EQ's p.o. prior to discharge and she will continue this until following up with PCP next week. Exam Data for Last 24 hours Vital signs and Labs for Last 24 Hours: Temp Pulse Resp BP Pulse Ox 98.8 F 94 H 16 115/64 97 07/29/22 12:00 07/29/22 12:00 07/29/22 12:00 07/29/22 12:00 07/29/22 12:00 Laboratory Results - last 24 hr 07/29/22 06:15: WBC 14.7 H, RBC 3.65 L, Hgb 11.6 L D, Hct 34.0 L, MCV 93.1, MCH 31.7 H, MCHC 34.0, RDW 13.6, Plt Count 202, MPV 7.5, Neut % (Auto) 89.7 H, Lymph % (Auto) 7.0 L, [facility] % (Auto) 2.8, Eos % (Auto) 0.3, Baso % (Auto) 0.2, Neut # (Auto) 13.2 H, Lymph # (Auto) 1.0, [facility] # (Auto) 0.4, Eos # (Auto) 0.0, Baso # (Auto) 0.0, Total Counted 100, Neutrophils % (Manual) 84 H, Lymphocytes % (Manual) 13, Monocytes % (Manual) 3, Platelet Estimate Normal, RBC Morphology Normal 07/29/22 06:15: Sodium 134 L, Potassium 2.6 L* D, Chloride 106, Carbon Dioxide 21 L, Anion Gap 9.6, BUN 16 D, Creatinine 1.00 D, Estimated Creat Clear 63, Estimated GFR 59, Est GFR ( Amer) 71 D, Glucose 96, Calcium 7.7 L, Magnesium 2.3, Total Bilirubin 0.2, AST 30 D, ALT 24 D, Alkaline Phosphatase 107, Total Protein 5.2 L, Albumin 2.8 L D, Globulin 2.4, Albumin/Globulin Ratio 1.2 07/29/22 06:15: Lactate 0.7 07/29/22 12:28: Sodium 139, Potassium 3.2 L D, Chloride 112 H, Carbon Dioxide 24, Anion Gap 6.2, BUN 16, Creatinine 0.90, Estimated Creat Clear 70, Estimated GFR 67, Est GFR ( Amer) 81, Glucose 103 H, Calcium 7.9 L I & O for Last 24 hours: Intake & Output 07/26/22 07/27/22 07/28/22 07/29/22 23:59 23:59 23:59 23:59 Intake Total 240 / 240 1942 Output Total 0 / 0 Balance 240 / 240 1942 Weight 56.699 kg 58.627 kg Microbiology Reports for the Last 24 Hours: Microbiology 07/28/22 10:20 Urine,Clean Catch Urine Culture - Preliminary NO GROWTH AFTER 24 HOURS Results Data Completed and Pending Labs on day of discharge: Labs from last 24 hours 07/29/22 07/29/22 07/29/22 12:28 06:15
--- NOTE | 2022-07-30 15:13 | CARE MANAGER ---
Contacted patient related to hospital discharge. Patient states she picked up new medication. She denies any questions or concerns. OTF M[place]
== END 2022-07-29 15:37 | disposition home or self-care (01) ==
LOC: UTC 10:26 → ER 10:39 → 2ND 15:33
PROVIDERS: Admitting Provider Emergency Medicine; Emergency Provider Emergency Medicine; PCP Internal Medicine; Visit Provider Emergency Medicine
DX: N17.9 Acute kidney failure, unspecified (principal); J18.9 Pneumonia, unspecified organism; E87.1 Hypo-osmolality and hyponatremia; I95.9 Hypotension, unspecified; M06.9 Rheumatoid arthritis, unspecified; E87.6 Hypokalemia; D84.9 Immunodeficiency, unspecified; G43.909 Migraine, unspecified, not intractable, without status migrainosus; Z79.899 Other long term (current) drug therapy
CPT/HCPCS: 36415; 71045; 71275; 80048; 80053; 81001; 83605; 83690; 83735; 84436; 84443; 84484; 85007; 85025; 85378; 87040; 87070; 87086; 87205; 93005; 99285; C9803; G0378; J0456; J2405; J3370; Q9967; U0003; U0005

== ENCOUNTER 2022-09-24 15:30 | Outpatient (RCR) | payer BC, SELFPAY ==
--- NOTE | 2022-08-24 15:57 | HMH.SLVOIC ---
Speech & Language Evaluation Speech/Language Voice Evaluation Start: 08/24/22 15:05 Freq: once Status: Complete Protocol: Document 08/24/22 15:05 MANJU (Rec: 08/24/22 15:55 MANJU [email or web address]) Voice/Dysarthria Assessment/Goals/Plan Assessment/Problems Date of Evaluation: 08/24/22 Assessment/Problems Pt was assessed at [facility] Rehab Services by the speech language pathologist per MD order following persistent hoarseness. Does Patient Qualify for Service Yes Qualify/Failure Comment Based on assessment results, pt would benefit from skilled speech therapy services 1x/ week to reduce vocally abusive behaviors and educate on vocal hygiene. Recommendations Pt will be seen # times/week 1 for # weeks 8 Plan Anticipate reaching STG in # weeks 4 Anticipate reaching LTG in # weeks 8 Pt/Guardian verbally ack understanding Yes of dx/prognosis/goals G -code Required No Short Term Goals Educated on & eliminate vocal abuse Yes behaviors Use easy initiation of phonation for Yes prod of best voice 8/10 trials Sustain phonation of 'ah' at comf. pitch 25 8/10 trials # secs Inc inflection sustaining best voice by 5 upward inflection # notes 8/10 trials Inc inflection sustaining best voice by 5 downward inflection # notes 8/10 trials Inc loudness level wo inc laryngeal Yes tension 8/10 trials Inc easy initial of phonation using best Yes vocal quality habitually 8/10 Jewelry Jobber Goals Improve overall quality to increase/ Yes: 80% improve communication with family/ friends. Education Instructions provided Provided patient with a generalized vocal hygiene handout following review of assessment results and discussion of treatment plan. OPENER answered any and all questions Mrs. Hein had and she expressed understanding. Pt/Caregiver able to recall information Able to recall/restate Reinforcement needed No Speech & Language HPI History Present Illness Description of Patient Problem Mrs. Hein had a recent visit to the ENT in which she was scoped, per pt report, scope showed no evidence of polyps or acid reflux--however she has a hx of lots of drainage
== END 2022-09-24 15:35 | disposition home or self-care (01) ==
LOC: ST 15:30
PROVIDERS: PCP Internal Medicine
DX: R49.0 Dysphonia (principal)
CPT/HCPCS: 92507; 92524

== ENCOUNTER → 2023-01-20 11:42 | Outpatient (CLI) | payer BC, SELFPAY ==
--- NOTE | 2023-01-20 11:48 | XR_ITS ---
FINAL REPORT CLINICAL HISTORY: Left arch and heel pain, plantar fasciitis COMPARISON: None FINDINGS: LEFT FOOT: Three views of the left foot were obtained. There is no acute fracture or dislocation. The joint spaces are intact. There is no soft tissue abnormality. IMPRESSION: No acute bony abnormality. Reviewed, Interpreted and Dictated by Kvng Corbin III, MD Transcribed by Susana Dunlap Authenticated and [facility]
== END ==
PROVIDERS: PCP Internal Medicine; Visit Provider Podiatrist
DX: M79.672 Pain in left foot (principal)
CPT/HCPCS: 73630

== ENCOUNTER → 2023-04-09 16:33 | Outpatient (CLI) | payer BC, SELFPAY ==
[2023-04-09 17:19] LABS: Basophils # 0.1 K/mm3 (0-0.2); Basophils % 0.9 % (0.1-2.0); Eosinophils # 0.1 K/mm3 (0.0-0.4); Eosinophils % 0.9 % (0.1-12.0); Hematocrit 42.4 % (37.0-47.0); Hemoglobin 13.7 g/dL (12.2-16.2); Lymphocytes # 2.5 K/mm3 (0.7-4.5); Lymphocytes % 34.5 % (10-50); Mean Corpuscular HGB Conc 32.3 g/dL (31.8-35.4); Mean Corpuscular Hemoglobin 31.1 pg (27.0-31.2); Mean Corpuscular Volume 96.3 fl (81-99); Mean Platelet Volume 7.6 fl (7.4-10.4); Monocytes # 0.5 K/mm3 (0.1-1.0); Monocytes % 6.8 % (1.7-9.3); Neutrophils # 4.2 K/mm3 (1.8-7.8); Neutrophils % 56.9 % (37.0-80.0); Platelet Count 285 K/mm3 (142-424); Red Cell Distribution Width 14.3 % (11.5-17.5); White Blood Count 7.3 K/mm3 (4.8-10.8)
[2023-04-09 17:43] LABS: Alanine Aminotransferase 42 U/L (12-78); Albumin Level 4.4 g/dl (3.5-5.0); Albumin/Globulin Ratio 1.5 (1.1-1.8); Alkaline Phosphatase 90 U/L (38-126); Anion Gap 14.4 mEq/L (5-15); Aspartate Amino Transferase 45 U/L (14-36); Bilirubin,Total 0.2 mg/dl (0.2-1.3); Blood Urea Nitrogen 16 mg/dl (7-17); Calcium 9.2 mg/dl (8.4-10.2); Carbon Dioxide 24 mmol/L (22.0-30.0); Chloride 107 mmol/L (98-107); Estimated Glomerular Filt Rate 76 ml/min (>60); GFR (African American) 92 ML/MIN (>60); Globulin 2.9 g/dL (1.3-3.2); Glucose 67 mg/dl (74-100); Potassium 4.4 mmoL/L (3.5-5.1); Sodium 141 mmol/L (136-145); Total Protein,Serum 7.3 g/dl (6.3-8.2)
[2023-04-09 17:49] LABS: C-Reactive Protein 0.9 mg/L (0-4)
[2023-04-09 18:38] LABS: Erythrocyte Sedimentation Rate 16 mm/hr (0-20)
[2023-04-13 21:34] LABS: QuantiFERON-TB Gold Plus Negative (Negative)
== END ==
PROVIDERS: PCP Internal Medicine; Visit Provider Internal Medicine Rheumatology
DX: M06.09 Rheumatoid arthritis without rheumatoid factor, multiple sites (principal); Z79.899 Other long term (current) drug therapy; M72.2 Plantar fascial fibromatosis; Z90.410 Acquired total absence of pancreas; K21.9 Gastro-esophageal reflux disease without esophagitis; Z86.73 Personal history of transient ischemic attack (TIA), and cerebral infarction without residual deficits
CPT/HCPCS: 36415; 80053; 85025; 85651; 86140; 86480

== ENCOUNTER 2023-05-03 17:16 | Emergency (ER) | payer BC, SELFPAY ==
[2023-05-03 18:05] VITALS: BP 127/75; PULSE 90; RESP 18; TEMP 37.8; O2SAT 100; BMI 22.1
[2023-05-03 18:18] LABS: UTC Influenza A Antigen Negative (Negative); UTC Influenza B Antigen Negative (Negative)
--- NOTE | 2023-05-03 18:22 | EXP.UTC ---
Discharge Plan Disposition Patient Disposition: Home, Self-Care Condition: Good Prescriptions Prescriptions: New azithromycin [Zithromax Z-Thomas] 250 mg tablet See Rx Instructions .ROUTE .COMPLEX 5 Days Qty: 6 0RF Rx Instructions: For 250 mg dose pack: take 500 mg today (day 1), then 250 mg for 4 days (days 2-5) benzonatate 100 mg capsule 100 mg PO TID PRN (Reason: cough) Qty: 30 0RF methylprednisolone [Medrol (Thomas)] 4 mg tablets,dose pack See Rx Instructions .Route .COMPLEX 6 Days Qty: 21 0RF Rx Instructions: taper pack; guaifenesin [Mucinex] 600 mg tablet extended release 12hr 600 mg PO BID PRN (Reason: cough) Qty: 20 0RF No Action albuterol sulfate 18 GM HFA aerosol inhaler 1 - 2 puffs inhalation Q4-6H PRN (Reason: Shortness Of Breath Or Wheezing) Qty: 1 0RF hydroxychloroquine 200 MG tablet 200 mg PO BID levocetirizine 5 MG tablet 5 mg PO DAILY pantoprazole 40 mg tablet,delayed release (DR/EC) 40 mg PO BID montelukast 10 mg tablet 10 mg PO PM Patient Comments: TAKE 1 TABLET IN THE EVENING topiramate 100 mg tablet 100 mg PO HS Patient Comments: TAKE 1 TABLET BY MOUTH AT BEDTIME nebivolol [Bystolic] 5 mg tablet 5 mg PO DAILY Hold Instructions: Resume on 08/05/22. Until follow up with PCP. Creon 36,000-114,000- 180,000 unit capsule,delayed release(DR/EC) 2 cap PO TID Spiriva Respimat 1.25 mcg/actuation mist 2 puff INHALATION DAILY Patient Comments: USE 2 INHALATIONS ONCE DAILY DIRECTED Xhance 93 mcg/actuation aerosol breath activated 2 spray INTRANASAL DAILY Ajovy Autoinjector 225 mg/1.5 mL auto-injector 225 mg SQ MONTHLY Trelegy Ellipta 200-62.5-25 mcg blister with device 1 ea INHALATION DAILY Patient Comments: 1 puff as directed once a day Rinse mouth potassium chloride 20 mEq Tablet,Er Particles/Crystals 40 meq PO DAILY Qty: 10 0RF levofloxacin 500 mg tablet 500 mg PO DAILY 5 Days Qty: 5 0RF Referrals Follow up/Referrals: Stacy Valerio MD [Primary Care Provider] - See instructions Activity Restrictions/Add. Instructions Additional Instructions/Restrictions: Start antibiotic today. Be sure to complete entire prescription even if feeling better Monitor temp. Tylenol every 4 hours as needed and / or ibuprofen every 6 hours as needed ( As long as your primary care physician has told you that it ok to take both. For fever/aches/pains ER if no less than 101 despite Tylenol or Motrin Humidifier/vaporizer or hot steamy shower Mucinex during the day for your cough and cough suppressant only at night. Be sure to drink lots of water. *Start steroid today. Helps with inflammation therefore, cough and wheezing. Follow directions on the package. Reviewed side effects. Patient reports taking them before. Follow up IMMEDIATELY for new or worsening of symptoms OR no noticeable improvement over the next 48-72 hours. 911 immediately for any life threatening symptoms such as chest pain or difficulty breathing Clinical Impressions Clinical Impression: Bronchitis Sinusitis Qualifiers: Sinusitis location: unspecified location Chronicity: unspecified Qualified Code(s): J32.9 - Chronic sinusitis, unspecified Instructions Patient Instructions: DI for Sinusitis, Acute Bronchitis Discharge ED Provider: Latrice Ferreira [facility] [place] General Stated complaint: fever chills cough Mode of Arrival: Ambulatory Source of Information: Patient Limitations: No Limitations Time Seen by Provider: 05/03/23 18:22 Description of Symptoms (Recalled from Triage Doc. by RN): PATIENT C/O FEVER, CHILLS, BODY ACHES, AND COUGH SINCE YESTERDAY HEENT Symptoms (Recalled from RN notes): Yes Resp Symptoms (Recalled from RN notes): Yes Skin Symptoms (Recalled from RN notes): No MS Symptoms (Recalled from RN notes): No Functional Status (Recalled from RN no
[2023-05-03 18:39] VITALS: BP 127/75; PULSE 90; RESP 18; TEMP 37.8; O2SAT 100
[2023-05-03 18:43] LABS: UTC Strep Screen (Rapid) Negative (Negative)
== END 2023-05-03 18:44 | disposition home or self-care (01) ==
PROVIDERS: Emergency Provider Nurse Practitioner; PCP Internal Medicine
DX: J20.9 Acute bronchitis, unspecified (principal); J01.90 Acute sinusitis, unspecified; R50.9 Fever, unspecified; J45.909 Unspecified asthma, uncomplicated; I10 Essential (primary) hypertension
CPT/HCPCS: 87804; 87880; 99212; 99214; G0463

== ENCOUNTER 2023-06-21 15:40 | Emergency (ER) | payer BC, OTHER, SELFPAY ==
[2023-06-21 15:55] VITALS: BP 143/89; PULSE 69; RESP 18; TEMP 37.2; O2SAT 100; BMI 22.8
--- NOTE | 2023-06-21 16:15 | EXP.UTC ---
Discharge Plan Disposition Patient Disposition: Home, Self-Care Condition: Good Prescriptions Prescriptions: New azithromycin [Zithromax] 250 mg tablet 250 mg PO UD DOSE PK Qty: 6 0RF Rx Instructions: Take two (2) tablets today, then one (1) tablet days #2 thru #5 benzonatate [benzonatate] 100 mg capsule 100 mg PO TIDP PRN (Reason: Cough) Qty: 30 0RF methylprednisolone 4 mg Tablets,Dose Pack 4 mg PO DIRECTED Qty: 21 0RF No Action albuterol sulfate 18 GM HFA aerosol inhaler 1 - 2 puffs inhalation Q4-6H PRN (Reason: Shortness Of Breath Or Wheezing) Qty: 1 0RF hydroxychloroquine 200 MG tablet 200 mg PO BID levocetirizine 5 MG tablet 5 mg PO DAILY pantoprazole 40 mg tablet,delayed release (DR/EC) 40 mg PO BID montelukast 10 mg tablet 10 mg PO PM Patient Comments: TAKE 1 TABLET IN THE EVENING topiramate 100 mg tablet 100 mg PO HS Patient Comments: TAKE 1 TABLET BY MOUTH AT BEDTIME nebivolol [Bystolic] 5 mg tablet 5 mg PO DAILY Hold Instructions: Resume on 08/05/22. Until follow up with PCP. Creon 36,000-114,000- 180,000 unit capsule,delayed release(DR/EC) 2 cap PO TID Xhance 93 mcg/actuation aerosol breath activated 2 spray INTRANASAL DAILY Ajovy Autoinjector 225 mg/1.5 mL auto-injector 225 mg SQ MONTHLY Trelegy Ellipta 200-62.5-25 mcg blister with device 1 ea INHALATION DAILY Patient Comments: 1 puff as directed once a day Rinse mouth Ubrelvy 100 mg tablet 100 mg PO BID PRN (Reason: .) Patient Comments: TAKE 1 TABLET BY MOUTH TWICE DAILY NEEDED Referrals Follow up/Referrals: Stacy Valerio MD [Primary Care Provider] - See instructions Activity Restrictions/Add. Instructions Additional Instructions/Restrictions: Drink plenty of fluids. Take tylenol or ibuprofen for pain or fever. Take the medications as directed. Follow up with your regular doctor. GO TO THE ER FOR ANY WORSENING SYMPTOMS Clinical Impressions Clinical Impression: Sinusitis Stand Alone Forms Stand Alone Forms: Work/School Release Instructions Patient Instructions: Sinusitis, DI for Sinusitis Discharge ED Provider: Kirk Aguilar [facility] [place] HPI General Stated complaint: Possible sinus infection Mode of Arrival: Ambulatory Source of Information: Patient Limitations: No Limitations Time Seen by Provider: 06/21/23 16:15 Description of Symptoms (Recalled from Triage Doc. by RN): sinus pressure, cough, and FERNANDEZ HEENT Symptoms (Recalled from RN notes): Yes Resp Symptoms (Recalled from RN notes): No Skin Symptoms (Recalled from RN notes): No MS Symptoms (Recalled from RN notes): No Functional Status (Recalled from RN notes): n/a History of Present Illness Provider Complaint: She states that for the past 2 weeks he has had sinus congestion. She states that her symptoms are worsening. Related Data Home Medications Medication Instructions Recorded Confirmed hydroxychloroquine 200 mg tablet 200 mg PO BID autoimmune disease 08/12/20 06/21/23 levocetirizine 5 mg tablet 5 mg PO DAILY Allergy symptoms 08/12/20 06/21/23 fluticasone fur. 200 mcg-umeclid 1 ea inhalation DAILY COPD 07/28/22 06/21/23 62.5 mcg-vilant 25 mcg inhalat.powder (Trelegy Ellipta) fluticasone propionate 93 2 spray intranasal DAILY Allergy 07/28/22 06/21/23 mcg/actuation breath activated symptoms aerosol (Xhance) fremanezumab-vfrm 225 mg/1.5 mL 225 mg SQ MONTHLY migraine 07/28/22 06/21/23 subcutaneous auto-injector (Ajovy) prevention [id number]-szcpleyy-[id number] 2 cap PO TID pancreatitis 07/28/22 06/21/23 36,000-114,000-180,000 unit capsule,delay rel (Creon) montelukast 10 mg tablet 10 mg PO PM Allergy symptoms 07/28/22 06/21/23 nebivolol 5 mg tablet (Bystolic) 5 mg PO DAILY blood pressure 07/28/22 06/21/23 pantoprazole 40 mg tablet,delayed 40 mg PO BID acid reflux 07/28/22 06/21/23 release topiramate 100 mg tablet
[2023-06-21 16:29] VITALS: BP 143/89; PULSE 69; RESP 18; TEMP 37.2; O2SAT 100
== END 2023-06-21 16:29 | disposition home or self-care (01) ==
PROVIDERS: Emergency Provider Nurse Practitioner Family; PCP Internal Medicine
DX: J01.90 Acute sinusitis, unspecified (principal); R51.9 Headache, unspecified; R05.9 Cough, unspecified; J45.909 Unspecified asthma, uncomplicated; I10 Essential (primary) hypertension
CPT/HCPCS: 87635; 99212; 99214; G0463

== ENCOUNTER 2023-06-27 10:47 | Emergency (ER) | payer BC, OTHER, SELFPAY ==
[2023-06-27 11:00] VITALS: BP 121/75; PULSE 94; RESP 18; TEMP 37.4; O2SAT 97; BMI 22.8
--- NOTE | 2023-06-27 11:04 | XR_ITS ---
PROCEDURE INFORMATION: Exam: XR Chest Exam date and time: 06/27/2023 11:02 AM Age: 47 years old Clinical indication: Cough; Additional info: Cough. HX of asthma TECHNIQUE: Imaging protocol: Radiologic exam of the chest. Views: 2 views. COMPARISON: CT ANGIO CHEST PE PROTOCOL 07/28/2022 12:13 PM FINDINGS: Lungs: Opacity in the posterior lung bases on the lateral consistent with atelectasis or pneumonia Pleural spaces: Unremarkable. No pleural effusion. No pneumothorax. Heart/Mediastinum: Unremarkable. No cardiomegaly. Bones/joints: Unremarkable. IMPRESSION: Opacity in the posterior lung bases on the lateral consistent with atelectasis or pneumonia
--- NOTE | 2023-06-27 11:23 | EXP.UTC ---
Discharge Plan Disposition Patient Disposition: Home, Self-Care Condition: Good Prescriptions Prescriptions: New promethazine-DM 6.25-15 mg/5 mL Syrup 5 ml PO Q6H PRN (Reason: Cough) Qty: 240 0RF prednisone 10 mg tablet 10 mg PO DIRECTED 9 Days Qty: 21 0RF Rx Instructions: Take 4 tablets daily for 3 days, then take 2 tablets daily for 3 days, then take 1 tablet daily for 3 days, then stop. levofloxacin [levofloxacin] 500 mg tablet 500 mg PO DAILY Qty: 7 0RF No Action albuterol sulfate 18 GM HFA aerosol inhaler 1 - 2 puffs inhalation Q4-6H PRN (Reason: Shortness Of Breath Or Wheezing) Qty: 1 0RF hydroxychloroquine 200 MG tablet 200 mg PO BID levocetirizine 5 MG tablet 5 mg PO DAILY pantoprazole 40 mg tablet,delayed release (DR/EC) 40 mg PO BID montelukast 10 mg tablet 10 mg PO PM Patient Comments: TAKE 1 TABLET IN THE EVENING topiramate 100 mg tablet 100 mg PO HS Patient Comments: TAKE 1 TABLET BY MOUTH AT BEDTIME nebivolol [Bystolic] 5 mg tablet 5 mg PO DAILY Hold Instructions: Resume on 08/05/22. Until follow up with PCP. Creon 36,000-114,000- 180,000 unit capsule,delayed release(DR/EC) 2 cap PO TID Xhance 93 mcg/actuation aerosol breath activated 2 spray INTRANASAL DAILY Ajovy Autoinjector 225 mg/1.5 mL auto-injector 225 mg SQ MONTHLY Trelegy Ellipta 200-62.5-25 mcg blister with device 1 ea INHALATION DAILY Patient Comments: 1 puff as directed once a day Rinse mouth Ubrelvy 100 mg tablet 100 mg PO BID PRN (Reason: .) Patient Comments: TAKE 1 TABLET BY MOUTH TWICE DAILY NEEDED Referrals Follow up/Referrals: Stacy Valerio MD [Primary Care Provider] - See instructions Activity Restrictions/Add. Instructions Additional Instructions/Restrictions: Drink plenty of fluids. Take tylenol or ibuprofen for pain or fever. Take the medications as directed. Follow up with your regular doctor. GO TO THE ER FOR ANY WORSENING SYMPTOMS Don't start the oral steroids until tomorrow, since you had the shot here today. The cough medication (promethazine dm) will make you drowsy, so don't drive or operate heavy machinery after taking it. Clinical Impressions Clinical Impression: Community acquired pneumonia Instructions Patient Instructions: Pneumonia-Adult Discharge ED Provider: Kirk Aguilar [facility] [place] HPI General Stated complaint: cough, fever, head ache Mode of Arrival: Ambulatory Source of Information: Patient Limitations: No Limitations Time Seen by Provider: 06/27/23 11:23 Description of Symptoms (Recalled from Triage Doc. by RN): cough, fever, and chills. HEENT Symptoms (Recalled from RN notes): Yes Resp Symptoms (Recalled from RN notes): No Skin Symptoms (Recalled from RN notes): No MS Symptoms (Recalled from RN notes): No Functional Status (Recalled from RN notes): n/a History of Present Illness Provider Complaint: She states that her symptoms are getting worse instead of better. She has finished the z-pack and other medications. She has a history of getting pneumonia and that is what she thinks may be happening now. Related Data Home Medications Medication Instructions Recorded Confirmed hydroxychloroquine 200 mg tablet 200 mg PO BID autoimmune disease 08/12/20 06/27/23 levocetirizine 5 mg tablet 5 mg PO DAILY Allergy symptoms 08/12/20 06/27/23 fluticasone fur. 200 mcg-umeclid 1 ea inhalation DAILY COPD 07/28/22 06/27/23 62.5 mcg-vilant 25 mcg inhalat.powder (Trelegy Ellipta) fluticasone propionate 93 2 spray intranasal DAILY Allergy 07/28/22 06/27/23 mcg/actuation breath activated symptoms aerosol (Xhance) fremanezumab-vfrm 225 mg/1.5 mL 225 mg SQ MONTHLY migraine 07/28/22 06/27/23 subcutaneous auto-injector (Ajovy) prevention valmlc-yhgytjks-jjraosa 2 cap PO TID pancreatitis 07/28/22 06/27/23 36,000-114,000-180,000 unit capsule,surendra
[2023-06-27 12:02] VITALS: BP 121/75; PULSE 94; RESP 18; TEMP 37.4; O2SAT 97
== END 2023-06-27 12:02 | disposition home or self-care (01) ==
PROVIDERS: Emergency Provider Nurse Practitioner Family; PCP Internal Medicine
DX: J18.9 Pneumonia, unspecified organism (principal); R50.9 Fever, unspecified; R51.9 Headache, unspecified; R05.9 Cough, unspecified; J45.909 Unspecified asthma, uncomplicated; I10 Essential (primary) hypertension
CPT/HCPCS: 71046; 96372; 99212; 99214; G0463

== ENCOUNTER 2023-10-04 12:06 | Outpatient (CLI) | payer BC, OTHER, SELFPAY ==
[2023-10-04 13:04] LABS: Basophils % 0.6 % (0.1-2.0); Eosinophils # 0.1 K/mm3 (0.0-0.4); Eosinophils % 1.4 % (0.1-12.0); Hematocrit 45.7 % (37.0-47.0); Hemoglobin 14.5 g/dL (12.2-16.2); Lymphocytes # 2.2 K/mm3 (0.7-4.5); Mean Corpuscular HGB Conc 31.7 g/dL (31.8-35.4); Mean Corpuscular Hemoglobin 31.8 pg (27.0-31.2); Mean Corpuscular Volume 100.3 fl (81-99); Mean Platelet Volume 7.6 fl (7.4-10.4); Monocytes # 0.3 K/mm3 (0.1-1.0); Monocytes % 5.3 % (1.7-9.3); Neutrophils # 3.4 K/mm3 (1.8-7.8); Neutrophils % 55.7 % (37.0-80.0); Platelet Count 241 K/mm3 (142-424); Red Blood Count 4.56 M/mm3 (4.20-5.40); Red Cell Distribution Width 13.5 % (11.5-17.5); White Blood Count 6.1 K/mm3 (4.8-10.8)
[2023-10-04 14:47] LABS: Alanine Aminotransferase 61 U/L (12-78); Albumin Level 4.5 g/dl (3.5-5.0); Albumin/Globulin Ratio 1.6 (1.1-1.8); Alkaline Phosphatase 183 U/L (38-126); Anion Gap 15.6 mEq/L (5-15); Aspartate Amino Transferase 114 U/L (14-36); Bilirubin,Total 1.2 mg/dl (0.2-1.3); Blood Urea Nitrogen 16 mg/dl (7-17); Carbon Dioxide 19 mmol/L (22.0-30.0); Chloride 111 mmol/L (98-107); Estimated Glomerular Filt Rate 89 ml/min (>60); GFR (African American) 107 ML/MIN (>60); Globulin 2.8 g/dL (1.3-3.2); Glucose 76 mg/dl (74-100); Potassium 4.6 mmoL/L (3.5-5.1); Sodium 141 mmol/L (136-145); Total Protein,Serum 7.3 g/dl (6.3-8.2)
[2023-10-04 14:58] LABS: Chol/HDL Ratio 2.5 (1-3.5); Cholesterol 183 mg/dl (140-200); HDL Cholesterol 74 mg/dl (40-60); Triglycerides 43 mg/dl (30-150); VLDL Cholesterol 9 mg/dL (0-40)
[2023-10-06 17:10] LABS: QuantiFERON-TB Gold Plus Negative (Negative)
== END 2023-10-04 23:59 ==
LOC: LAB 12:07
PROVIDERS: PCP Internal Medicine; Visit Provider Internal Medicine Rheumatology
DX: M06.09 Rheumatoid arthritis without rheumatoid factor, multiple sites (principal); R79.89 Other specified abnormal findings of blood chemistry; M72.2 Plantar fascial fibromatosis; Z86.73 Personal history of transient ischemic attack (TIA), and cerebral infarction without residual deficits; Z90.410 Acquired total absence of pancreas; Z79.899 Other long term (current) drug therapy
CPT/HCPCS: 36415; 80053; 80061; 85025; 86480

== ENCOUNTER 2023-10-23 08:43 | Emergency (ER) | payer BC, OTHER, SELFPAY ==
[2023-10-23 09:00] VITALS: BP 128/76; PULSE 79; RESP 18; TEMP 36.7; O2SAT 97; BMI 23.0
--- NOTE | 2023-10-23 09:31 | EXP.UTC ---
Discharge Plan Disposition Patient Disposition: Home, Self-Care Condition: Good Prescriptions Prescriptions: New azithromycin 250 mg tablet 250 mg PO DIRECTED Qty: 6 0RF Rx Instructions: Take two (2) tablets on day #1, then one (1) tablet day #2 thru #5 No Action albuterol sulfate 18 GM HFA aerosol inhaler 1 - 2 puffs inhalation Q4-6H PRN (Reason: Shortness Of Breath Or Wheezing) Qty: 1 0RF hydroxychloroquine 200 MG tablet 200 mg PO BID levocetirizine 5 MG tablet 5 mg PO DAILY pantoprazole 40 mg tablet,delayed release (DR/EC) 40 mg PO BID montelukast 10 mg tablet 10 mg PO PM Patient Comments: TAKE 1 TABLET IN THE EVENING topiramate 100 mg tablet 100 mg PO HS Patient Comments: TAKE 1 TABLET BY MOUTH AT BEDTIME nebivolol [Bystolic] 5 mg tablet 5 mg PO DAILY Hold Instructions: Resume on 08/05/22. Until follow up with PCP. Creon 36,000-114,000- 180,000 unit capsule,delayed release(DR/EC) 2 cap PO TID Xhance 93 mcg/actuation aerosol breath activated 2 spray INTRANASAL DAILY Ajovy Autoinjector 225 mg/1.5 mL auto-injector 225 mg SQ MONTHLY Trelegy Ellipta 200-62.5-25 mcg blister with device 1 ea INHALATION DAILY Patient Comments: 1 puff as directed once a day Rinse mouth Ubrelvy 100 mg tablet 100 mg PO BID PRN (Reason: .) Patient Comments: TAKE 1 TABLET BY MOUTH TWICE DAILY NEEDED promethazine-DM 6.25-15 mg/5 mL Syrup 5 ml PO Q6H PRN (Reason: Cough) Qty: 240 0RF prednisone 10 mg tablet 10 mg PO DIRECTED 9 Days Qty: 21 0RF Rx Instructions: Take 4 tablets daily for 3 days, then take 2 tablets daily for 3 days, then take 1 tablet daily for 3 days, then stop. levofloxacin [levofloxacin] 500 mg tablet 500 mg PO DAILY Qty: 7 0RF Referrals Follow up/Referrals: Stacy Valerio MD [Primary Care Provider] - See instructions Activity Restrictions/Add. Instructions Additional Instructions/Restrictions: Start antibiotics today be sure to take it as ordered with the full length of time although you should start feeling better in 24-48 hours. Change toothbrush and toothpaste 24-48 hours after starting antibiotics Tylenol or Motrin as needed for fever or pain Encourage fluids, water, Gatorade, Powerade, try cold fluids, popsicles, ice cream will make it feel better You are contagious for 24 hours. Avoid kissing anyone, no eating or drinking after anyone. You are contagious. Follow-up the ER for new or worsening symptoms or no noticeable improvement over the next 24-48 hours. Follow-up with PCP this week. Clinical Impressions Clinical Impression: Strep sore throat Instructions Patient Instructions: DI for Strep Throat Discharge ED Provider: Maria Guadalupe ([facility])[place] [facility] [place] General Stated complaint: sore throat,fever,bodyaches Mode of Arrival: Ambulatory Source of Information: Patient Limitations: No Limitations Time Seen by Provider: 10/23/23 09:31 Description of Symptoms (Recalled from Triage Doc. by RN): PATIENT C/O SORE THROAT, BODY ACHES, FEVER AND CHILLS THAT STARTED WEDNESDAY HEENT Symptoms (Recalled from RN notes): Yes Resp Symptoms (Recalled from RN notes): No Skin Symptoms (Recalled from RN notes): No MS Symptoms (Recalled from RN notes): No Functional Status (Recalled from RN notes): WNL History of Present Illness Provider Complaint: 48 yr old female presents for sore throat, fever, chills and body aches Related Data Home Medications Medication Instructions Recorded Confirmed hydroxychloroquine 200 mg tablet 200 mg PO BID autoimmune disease 08/12/20 06/27/23 levocetirizine 5 mg tablet 5 mg PO DAILY Allergy symptoms 08/12/20 06/27/23 fluticasone fur. 200 mcg-umeclid 1 ea inhalation DAILY COPD 07/28/22 06/27/23 62.5 mcg-vilant 25 mcg inhalat.powder (Trelegy Ellipta) fluticasone propionate 93 2 spray intranasal DAILY Allergy 07/28/22 06/27/23 mcg/actuation breath activated symptoms aerosol (Xhance) fremanezumab-vfrm 225 mg/1.5 mL 225 mg SQ MONTHLY migraine 07/28/22 06/27/23 subcutaneous auto-injector (Ajovy) prevention ruiony-phybiggw-sfuqzhg 2 cap PO TID pancreatitis 07/28/22 06/27/23 36,000-114,000-180,000 unit capsule,delay rel (Creon) montelukast 10 mg tablet 10 mg PO PM Allergy symptoms 07/28/22 06/27/23 nebivolol 5 mg tablet (Bystolic) 5 mg PO DAILY blood pressure 07/28/22 06/27/23 pantoprazole 40 mg tablet,delayed 40 mg PO BID acid reflux 07/28/22 06/27/23 release topiramate 100 mg tablet 100 mg PO HS migraine prevention 07/28/22 06/27/23 ubrogepant 100 mg tablet (Ubrelvy) 100 mg PO BID PRN . 06/21/23 06/27/23 Previous Rx's Medication Instructions Recorded albuterol sulfate 90 mcg/actuation 1 - 2 puffs inhalation Q4-6H PRN 10/23/18 aerosol inhaler Shortness Of Breath Or Wheezing #1 inh levofloxacin 500 mg tablet 500 mg PO DAILY #7 tabs 06/27/23 prednisone 10 mg tablet 10 mg PO DIRECTED 9 days #21 06/27/23 tabs promethazine-DM 6.25 mg-15 mg/5 mL 5 ml PO Q6H PRN Cough #240 mL 06/27/23 oral syrup azithromycin 250 mg tablet 250 mg PO DIRECTED #6 tabs 10/23/23 Allergies Allergy/AdvReac Type Severity Reaction Status Date / Time Penicillins [PENICILLINS] Allergy Mild Verified 06/27/23 11:12 codeine Allergy Verified 06/27/23 11:12 hydrocodone Allergy Verified 06/27/23 11:12 Worker's Comp Is this a Worker's Comp case?: No [facility] Disclaimer: The information contained in this section may have been updated after the patient was seen, as this information can be updated by other users. 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 current occupational exposures/hazards: No caffeine: Yes ROS Obtained: Yes All systems reviewed & no additional complaints except as documented Constitutional Constitutional: Reports system reviewed and no additional complaints, except as documented, Reports as per HPI, Reports body ache, Reports chills and Reports fever(s) Eyes Eyes: Reports system reviewed and no additional complaints, except as documented ENT Ears, Nose, Mouth, and Throat: Reports system reviewed and no additional complaints, except as documented, Reports as per HPI and Reports sore throat Cardiovascular Cardiovascular: Reports system reviewed and no additional complaints, except as documented Respiratory Respiratory: Reports system reviewed and no additional complaints, except as documented Gastrointestinal Gastrointestingal: Reports system reviewed and no additional complaints, except as documented Neurologic Neurologic: Reports system reviewed and no additional complaints, except as documented Hematologic/Lymphatic Henatologic/Lymphatic: Reports system reviewed and no additional complaints, except as documented Physical Exam General General appearance: alert and in no apparent distress Head Head exam: atraumatic Eye Eye exam: Present normal appearance and PERRL ENT ENT exam: Present mucous membranes moist and TM's normal bilaterally Expanded ENT Exam Throat exam: Present tonsillar erythema, tonsillomegaly and tonsillar exudate Respiratory Respiratory exam: Present normal lung sounds bilaterally Cardiovascular Cardiovascular exam: Present regular rate and normal rhythm Neurological Exam Neurological exam: Present alert and oriented X3 Skin Skin exam: Present warm and intact Medical Decision Making Medical Records Medical records reviewed: Yes I reviewed the patient's medical records. David Inquiry Pt receiving controlled substance: No David was queried for this patient: No Vital Signs: 10/23/23 09:00 Temperature 98.1 F Temperature Source Oral Pulse Rate [Left Brachial] 79 Respiratory Rate 18 Blood Pressure [Left Arm] 128/76 Blood Pressure Mean [Left Arm] 93 Blood Pressure Source [Left Arm] Automatic Cuff Blood Pressure Position [Left Arm] Sitting 02 Sat by Pulse Oximetry 97 Oxygen Delivery Method Room Air Lab Data Lab results reviewed: Yes I reviewed the patient's lab results. Medical Decision Narrative: pt states she has take zpak with all meds and tolerated well
[2023-10-23 09:35] LABS: UTC Influenza A Antigen Negative (Negative); UTC Influenza B Antigen Negative (Negative); UTC Strep Screen (Rapid) Positive (Negative)
[2023-10-23 09:37] VITALS: BP 128/76; PULSE 79; RESP 18; TEMP 36.7; O2SAT 97
== END 2023-10-23 09:39 | disposition home or self-care (01) ==
PROVIDERS: Emergency Provider Nurse Practitioner Family; PCP Internal Medicine
DX: J02.0 Streptococcal pharyngitis (principal); R50.9 Fever, unspecified; I10 Essential (primary) hypertension; J45.909 Unspecified asthma, uncomplicated
CPT/HCPCS: 87804; 87880; 99212; 99214; G0463

== ENCOUNTER 2024-02-14 08:31 | Outpatient (CLI) | payer BC, OTHER, SELFPAY ==
[2024-02-14 09:04] LABS: Basophils # 0.1 K/mm3 (0-0.2); Basophils % 1.3 % (0.1-2.0); Eosinophils # 0.1 K/mm3 (0.0-0.4); Eosinophils % 1.5 % (0.1-12.0); Hematocrit 46.1 % (37.0-47.0); Hemoglobin 14.5 g/dL (12.2-16.2); Lymphocytes # 2.4 K/mm3 (0.7-4.5); Lymphocytes % 40.4 % (10-50); Mean Corpuscular HGB Conc 31.5 g/dL (31.8-35.4); Mean Corpuscular Hemoglobin 31.5 pg (27.0-31.2); Monocytes # 0.4 K/mm3 (0.1-1.0); Monocytes % 6.3 % (1.7-9.3); Neutrophils % 50.6 % (37.0-80.0); Platelet Count 236 K/mm3 (142-424); Red Blood Count 4.61 M/mm3 (4.20-5.40); Red Cell Distribution Width 14.1 % (11.5-17.5); White Blood Count 5.9 K/mm3 (4.8-10.8)
[2024-02-14 09:12] LABS: Hemoglobin A1C 6.6 % (4.0-6.0)
[2024-02-14 09:28] LABS: Alanine Aminotransferase 72 U/L (12-78); Albumin Level 4.6 g/dl (3.5-5.0); Albumin/Globulin Ratio 1.5 (1.1-1.8); Alkaline Phosphatase 75 U/L (38-126); Anion Gap 8.2 mEq/L (5-15); Aspartate Amino Transferase 66 U/L (14-36); Bilirubin,Total 0.5 mg/dl (0.2-1.3); Blood Urea Nitrogen 19 mg/dl (7-17); Calcium 9.6 mg/dl (8.4-10.2); Carbon Dioxide 26 mmol/L (22.0-30.0); Chloride 110 mmol/L (98-107); Chol/HDL Ratio 2.5 (1-3.5); Cholesterol 239 mg/dl (140-200); Estimated Glomerular Filt Rate 76 ml/min (>60); GFR (African American) 92 ML/MIN (>60); Globulin 3.1 g/dL (1.3-3.2); Glucose 93 mg/dl (74-100); HDL Cholesterol 95 mg/dl (40-60); Potassium 4.2 mmoL/L (3.5-5.1); Sodium 140 mmol/L (136-145); Total Protein,Serum 7.7 g/dl (6.3-8.2); Triglycerides 55 mg/dl (30-150); VLDL Cholesterol 11 mg/dL (0-40)
[2024-02-14 09:39] LABS: Direct LDL Cholesterol 93.08 mg/dL (100-129)
[2024-02-14 09:45] LABS: 25-OH Vitamin D, Total 51.5 ng/mL (30-100)
[2024-02-14 09:59] LABS: Thyroid Stimulating Hormone 1.12 uIU/mL (0.465-4.68)
[2024-02-15 10:13] LABS: Insulin Level Total 8.7 uIU/mL (2.6-24.9)
== END 2024-02-14 23:59 | disposition home or self-care (01) ==
LOC: LAB 08:32
PROVIDERS: PCP Internal Medicine; Visit Provider Obstetrics & Gynecology Gynecology
DX: Z00.00 Encounter for general adult medical examination without abnormal findings (principal); R53.83 Other fatigue; N95.1 Menopausal and female climacteric states
CPT/HCPCS: 36415; 80050; 80053; 80061; 82306; 83001; 83036; 83525; 84443; 85025

== ENCOUNTER 2024-04-19 11:07 | Emergency (ER) | payer BC, OTHER, SELFPAY ==
--- NOTE | 2024-04-19 11:45 | ED_ITS ---
Discharge Plan Disposition Patient Disposition: Home, Self-Care Condition: Good Prescriptions Prescriptions: New acyclovir 800 mg tablet 800 mg PO 5XDAY 7 Days Qty: 35 0RF triamcinolone acetonide 0.1 % cream 1 applic topical BID PRN (Reason: itching) Qty: 30 0RF methylprednisolone 4 mg Tablets,Dose Pack 4 mg PO DIRECTED 6 Days Qty: 21 0RF Rx Instructions: Take 1 pack as directed for 6 days No Action albuterol sulfate 18 GM HFA aerosol inhaler 1 - 2 puffs inhalation Q4-6H PRN (Reason: Shortness Of Breath Or Wheezing) Qty: 1 0RF azithromycin 250 mg tablet 250 mg PO DIRECTED Qty: 6 0RF Rx Instructions: Take two (2) tablets on day #1, then one (1) tablet day #2 thru #5 hydroxychloroquine 200 MG tablet 200 mg PO BID levocetirizine 5 MG tablet 5 mg PO DAILY pantoprazole 40 mg tablet,delayed release (DR/EC) 40 mg PO BID montelukast 10 mg tablet 10 mg PO PM Patient Comments: TAKE 1 TABLET IN THE EVENING topiramate 100 mg tablet 100 mg PO HS Patient Comments: TAKE 1 TABLET BY MOUTH AT BEDTIME nebivolol [Bystolic] 5 mg tablet 5 mg PO DAILY Creon 36,000-114,000- 180,000 unit capsule,delayed release(DR/EC) 2 cap PO TID Xhance 93 mcg/actuation aerosol breath activated 2 spray INTRANASAL DAILY Ajovy Autoinjector 225 mg/1.5 mL auto-injector 225 mg SQ MONTHLY Trelegy Ellipta 200-62.5-25 mcg blister with device 1 ea INHALATION DAILY Patient Comments: 1 puff as directed once a day Rinse mouth Ubrelvy 100 mg tablet 100 mg PO BID PRN (Reason: .) Patient Comments: TAKE 1 TABLET BY MOUTH TWICE DAILY NEEDED promethazine-DM 6.25-15 mg/5 mL Syrup 5 ml PO Q6H PRN (Reason: Cough) Qty: 240 0RF prednisone 10 mg tablet 10 mg PO DIRECTED 9 Days Qty: 21 0RF Rx Instructions: Take 4 tablets daily for 3 days, then take 2 tablets daily for 3 days, then take 1 tablet daily for 3 days, then stop. levofloxacin [levofloxacin] 500 mg tablet 500 mg PO DAILY Qty: 7 0RF tizanidine 4 mg tablet 4 mg PO HS Patient Comments: TAKE 1/2 TO 1 (ONE-HALF TO ONE) TABLET BY MOUTH AT BEDTIME NEEDED topiramate 100 mg tablet 100 mg PO HS Patient Comments: TAKE 1 TABLET BY MOUTH NIGHTLY fluticasone propionate 50 mcg/actuation spray,suspension 50 mcg INTRANASAL NEEDED PRN (Reason: CON) Creon 36,000-114,000- 180,000 unit capsule,delayed release(DR/EC) 36,000 cap PO ACHS Ajovy Autoinjector 225 mg/1.5 mL auto-injector 225 mg SQ MONTHLY Patient Comments: INJECT 1 SYRINGE SUBCUTANEOUSLY ONCE EVERY MONTH Referrals Follow up/Referrals: Stacy Valerio MD [Primary Care Provider] - See instructions Activity Restrictions/Add. Instructions Additional Instructions/Restrictions: Drink plenty of fluids. Take tylenol or ibuprofen for pain or fever. Take the medications as directed. Follow up with your regular doctor. GO TO THE ER FOR ANY WORSENING SYMPTOMS Clinical Impressions Clinical Impression: Shingles Instructions Patient Instructions: Shingles, Triamcinolone Topical, Acyclovir, Methylprednisolone Print Language Print Language: Uzbek Discharge ED Provider: Kirk Aguilar [facility] [place] General Stated complaint: rash on right leg Time Seen by Provider: 04/19/24 11:45 Related Data Home Medications ?Medication ?Instructions ?Recorded ?Confirmed hydroxychloroquine 200 mg tablet 200 mg PO BID autoimmune disease 08/12/20 06/27/23 levocetirizine 5 mg tablet 5 mg PO DAILY Allergy symptoms 08/12/20 06/27/23 fluticasone fur. 200 mcg-umeclid 1 ea inhalation DAILY COPD 07/28/22 04/19/24 62.5 mcg-vilant 25 mcg inhalat.powder (Trelegy Ellipta) fluticasone propionate 93 2 spray intranasal DAILY Allergy 07/28/22 04/19/24 mcg/actuation breath activated symptoms aerosol (Xhance) fremanezumab-vfrm 225 mg/1.5 mL 225 mg SQ MONTHLY migraine 07/28/22 06/27/23 subcutaneous auto-injector (Ajovy) prevention ixatzs-tekznuqd-jhmcivq 2 cap PO TID pancreatitis 07/28/22 06/27/23 36,000-114,000-180,000 unit capsule,delay rel (Creon) montelukast 10 mg tablet 10 mg PO PM Allergy symptoms 07/28/22 06/27/23 nebivolol 5 mg tablet (Bystolic) 5 mg PO DAILY blood pressure 07/28/22 06/27/23 pantoprazole 40 mg tablet,delayed 40 mg PO BID acid reflux 07/28/22 06/27/23 release topiramate 100 mg tablet 100 mg PO HS migraine prevention 07/28/22 04/19/24 ubrogepant 100 mg tablet (Ubrelvy) 100 mg PO BID PRN . 06/21/23 04/19/24 fluticasone propionate 50 50 mcg intranasal NEEDED PRN CON 04/19/24 04/19/24 mcg/actuation nasal spray,suspension fremanezumab-vfrm 225 mg/1.5 mL 225 mg SQ MONTHLY 04/19/24 04/19/24 subcutaneous auto-injector (Ajovy) jawgos-ybmlkcvb-ndagcvq 36,000 cap PO ACHS 04/19/24 04/19/24 36,000-114,000-180,000 unit capsule,delay rel (Creon) tizanidine 4 mg tablet 4 mg PO HS 04/19/24 04/19/24 topiramate 100 mg tablet 100 mg PO HS 04/19/24 04/19/24 Previous Rx's ?Medication ?Instructions ?Recorded albuterol sulfate 90 mcg/actuation 1 - 2 puffs inhalation Q4-6H PRN 10/23/18 aerosol inhaler Shortness Of Breath Or Wheezing #1 inh levofloxacin 500 mg tablet 500 mg PO DAILY #7 tabs 06/27/23 prednisone 10 mg tablet 10 mg PO DIRECTED 9 days #21 06/27/23 tabs promethazine-DM 6.25 mg-15 mg/5 mL 5 ml PO Q6H PRN Cough #240 mL 06/27/23 oral syrup azithromycin 250 mg tablet 250 mg PO DIRECTED #6 tabs 10/23/23 acyclovir 800 mg tablet 800 mg PO 5XDAY 7 days #35 tabs 04/19/24 methylprednisolone 4 mg tablets in 4 mg PO DIRECTED 6 days #21 tabs 04/19/24 a dose pack triamcinolone acetonide 0.1 % 1 applic topical BID PRN itching 04/19/24 topical cream #30 grams Allergies Allergy/AdvReac Type Severity Reaction Status Date / Time Penicillins [PENICILLINS] Allergy Mild Verified 06/27/23 11:12 codeine Allergy Verified 06/27/23 11:12 hydrocodone Allergy Verified 06/27/23 11:12 PFSH [facility] Disclaimer: The information contained in this section may have been updated after the patient was seen, as this information can be updated by other users. 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 current occupational exposures/hazards: No caffeine: Yes ROS Obtained: Yes All systems reviewed & no additional complaints except as documented Constitutional Constitutional: Denies chills and Denies fever(s) Eyes Eyes: Denies eye discharge ENT Ears, Nose, Mouth, and Throat: Denies dizziness, Denies otalgia and Denies sore throat Cardiovascular Cardiovascular: Denies chest pain Respiratory Respiratory: Denies shortness of breath, Denies chest congestion, Denies cough, Denies stridor and Denies wheezing Gastrointestinal Gastrointestingal: Denies nausea or vomiting Musculoskeletal Musculoskeletal: Reports system reviewed and no additional complaints, except as documented and Denies arthralgias Integumentary/Breasts Skin/Breast: Denies rash Neurologic Neurologic: Denies dizziness and Denies paresthesias Allergic/Immunologic Allergic/Immunologic: Denies wheezing Physical Exam General General appearance: alert and in no apparent distress Head Head exam: atraumatic, normocephalic and normal inspection Eye Eye exam: Present normal appearance, PERRL and EOMI ENT ENT exam: Present normal exam, normal oropharynx, mucous membranes moist, TM's normal bilaterally and normal external ear exam Neck Neck exam: Present normal inspection, full ROM and trachea midline; Absent meningismus or lymphadenopathy Chest Chest inspection: Present normal inspection and symmetric chest wall rise; Absent tenderness Respiratory Respiratory exam: Present normal lung sounds bilaterally; Absent respiratory distress Cardiovascular Cardiovascular exam: Present regular rate and normal rhythm; Absent JVD Abdominal Exam Abdominal exam: Present soft and normal bowel sounds; Absent distention, tenderness or guarding Extremities Exam Extremities exam: Present normal inspection, full ROM and normal capillary refill; Absent calf tenderness Back Exam Back exam: Present normal inspection; Absent tenderness Neurological Exam Neurological exam: Present alert and oriented X3 Psychiatric Psychiatric exam: Present normal affect and normal mood Skin Skin exam: Present warm, dry, intact and normal color Lymphatic Lymphatic Findings: no adenopathy Medical Decision Making Medical Records Medical records reviewed: No I reviewed the patient's medical records. David Inquiry Pt receiving controlled substance: No
[2024-04-19 11:46] VITALS: BP 126/78; PULSE 66; RESP 20; TEMP 36.6; O2SAT 98; BMI 23.0
[2024-04-19 12:45] VITALS: BP 126/78; PULSE 66; RESP 20; TEMP 36.6; O2SAT 98
[2024-04-19 12:49] VITALS: BP 126/78; PULSE 66; RESP 20; TEMP 36.6; O2SAT 98
== END 2024-04-19 12:50 | disposition home or self-care (01) ==
PROVIDERS: Emergency Provider Nurse Practitioner Family; PCP Internal Medicine
DX: B02.9 Zoster without complications (principal)
CPT/HCPCS: 99212; 99214; G0463

== ENCOUNTER 2024-05-08 08:51 | Outpatient (CLI) | payer BC, OTHER, SELFPAY ==
[2024-05-08 09:38] LABS: Hemoglobin A1C 5.6 % (4.0-6.0)
[2024-05-08 09:48] LABS: Albumin Level 4.5 g/dl (3.5-5.0); Chloride 106 mmol/L (98-107); Sodium 139 mmol/L (136-145)
[2024-05-08 09:49] LABS: Potassium 4.6 mmoL/L (3.5-5.1)
[2024-05-08 09:51] LABS: Alanine Aminotransferase 95 U/L (12-78); Albumin/Globulin Ratio 1.6 (1.1-1.8); Alkaline Phosphatase 83 U/L (38-126); Anion Gap 12.6 mEq/L (5-15); Aspartate Amino Transferase 67 U/L (14-36); Bilirubin,Total 0.6 mg/dl (0.2-1.3); Blood Urea Nitrogen 15 mg/dl (7-17); Carbon Dioxide 25 mmol/L (22.0-30.0); Cholesterol 214 mg/dl (140-200); Estimated Glomerular Filt Rate 76 ml/min (>60); GFR (African American) 92 ML/MIN (>60); Globulin 2.9 g/dL (1.3-3.2); Total Protein,Serum 7.4 g/dl (6.3-8.2); Triglycerides 72 mg/dl (30-150); VLDL Cholesterol 14 mg/dL (0-40)
[2024-05-08 09:52] LABS: Calcium 9.6 mg/dl (8.4-10.2); Chol/HDL Ratio 2.9 (1-3.5); Glucose 90 mg/dl (74-100); HDL Cholesterol 75 mg/dl (40-60)
== END 2024-05-08 23:59 | disposition home or self-care (01) ==
LOC: LAB 08:52
PROVIDERS: PCP Internal Medicine; Visit Provider Internal Medicine
DX: R73.9 Hyperglycemia, unspecified (principal)
CPT/HCPCS: 36415; 80053; 80061; 83036

== ENCOUNTER 2024-05-22 09:04 | Outpatient (CLI) | payer BC, OTHER, SELFPAY ==
[2024-05-22 09:54] LABS: Hemoglobin A1C 5.5 % (4.0-6.0)
[2024-05-22 10:47] LABS: Albumin Level 4.4 g/dl (3.5-5.0); Chloride 108 mmol/L (98-107); Sodium 138 mmol/L (136-145)
[2024-05-22 10:48] LABS: Potassium 4.7 mmoL/L (3.5-5.1)
[2024-05-22 10:50] LABS: Alanine Aminotransferase 55 U/L (12-78); Albumin/Globulin Ratio 1.5 (1.1-1.8); Alkaline Phosphatase 94 U/L (38-126); Anion Gap 10.7 mEq/L (5-15); Aspartate Amino Transferase 49 U/L (14-36); Bilirubin,Total 0.6 mg/dl (0.2-1.3); Blood Urea Nitrogen 15 mg/dl (7-17); Carbon Dioxide 24 mmol/L (22.0-30.0); Cholesterol 187 mg/dl (140-200); Estimated Glomerular Filt Rate 76 ml/min (>60); GFR (African American) 92 ML/MIN (>60); Globulin 2.9 g/dL (1.3-3.2); Total Protein,Serum 7.3 g/dl (6.3-8.2); Triglycerides 82 mg/dl (30-150); VLDL Cholesterol 16 mg/dL (0-40)
[2024-05-22 10:51] LABS: Calcium 9.5 mg/dl (8.4-10.2); Chol/HDL Ratio 2.6 (1-3.5); Glucose 91 mg/dl (74-100); HDL Cholesterol 73 mg/dl (40-60)
[2024-05-22 11:02] LABS: Direct LDL Cholesterol 71.33 mg/dL (100-129)
== END 2024-05-22 23:59 | disposition home or self-care (01) ==
LOC: LAB 09:05
PROVIDERS: PCP Internal Medicine; Visit Provider Internal Medicine
DX: R73.9 Hyperglycemia, unspecified (principal)
CPT/HCPCS: 36415; 80053; 80061; 83036

== ENCOUNTER 2024-06-22 09:41 | Outpatient (CLI) | payer BC, OTHER, SELFPAY ==
--- NOTE | 2024-06-22 09:46 | XR_ITS ---
PROCEDURE INFORMATION: Exam: XR Chest Exam date and time: 06/22/2024 9:51 AM Age: 48 years old Clinical indication: Condition or disease; Other: Rheumatoid arthritis; Additional info: Rheumatoid arthritis, elevated lfts, HX stroke TECHNIQUE: Imaging protocol: Radiologic exam of the chest. Views: 2 views. COMPARISON: No relevant prior studies available. FINDINGS: Lungs: Unremarkable. No consolidation. Granulomatous calcifications right hilum and right midlung zone, chronic. Pleural spaces: Unremarkable. No pleural effusion. No pneumothorax. Heart/Mediastinum: Unremarkable. No cardiomegaly. Bones/joints: Unremarkable for age. IMPRESSION: No active cardiopulmonary disease.
== END 2024-06-22 23:59 | disposition home or self-care (01) ==
PROVIDERS: Visit Provider Internal Medicine Rheumatology
DX: M06.09 Rheumatoid arthritis without rheumatoid factor, multiple sites (principal); R79.89 Other specified abnormal findings of blood chemistry; Z86.73 Personal history of transient ischemic attack (TIA), and cerebral infarction without residual deficits; Z90.410 Acquired total absence of pancreas; Z79.899 Other long term (current) drug therapy
CPT/HCPCS: 71046

== ENCOUNTER 2024-07-17 10:15 | Outpatient (CLI) | payer BC, OTHER, SELFPAY ==
--- NOTE | 2024-07-17 10:19 | XR_ITS ---
FINAL REPORT CLINICAL HISTORY: shoulder pain COMPARISON: None FINDINGS: LEFT SHOULDER Two views demonstrate no acute fracture or dislocation. There are mild acromioclavicular joint degenerative changes. The visualized bony structures are well aligned. No soft tissue abnormality is seen. IMPRESSION: Degenerative changes without acute process. Reviewed, Interpreted and Dictated by Kvng Corbin III, MD Transcribed by Bhakti Nye Authenticated and [facility]
== END 2024-07-17 23:59 | disposition home or self-care (01) ==
LOC: RAD 10:16
PROVIDERS: PCP Internal Medicine; Visit Provider Physician Assistant
DX: M25.512 Pain in left shoulder (principal)
CPT/HCPCS: 73030

== ENCOUNTER 2024-09-06 13:44 | Outpatient (CLI) | payer BC, OTHER, SELFPAY ==
--- NOTE | 2024-09-06 13:45 | MR_ITS ---
FINAL REPORT CLINICAL HISTORY: left shoulder pain COMPARISON: None FINDINGS: Multi planar MR imaging of the shoulder was performed. The supraspinatus tendon appears intact. There is no abnormal fluid in the subacromial/subdeltoid bursa. The anterior and posterior glenoid sagar appear intact. The biceps tendon appears intact. There are mild hypertrophic changes of the acromioclavicular joint. The subscapularis tendon is intact. IMPRESSION: No evidence of significant internal derangement. Reviewed, Interpreted and Dictated by Flash Suazo MD Transcribed by Susana Dunlap Authenticated and [facility]
== END 2024-09-06 23:59 | disposition home or self-care (01) ==
LOC: RAD 13:45
PROVIDERS: PCP Internal Medicine; Visit Provider Physician Assistant
DX: M25.512 Pain in left shoulder (principal); M67.912 Unspecified disorder of synovium and tendon, left shoulder
CPT/HCPCS: 73221

== ENCOUNTER 2024-10-05 10:00 | Outpatient (RCR) | payer BC, OTHER, SELFPAY ==
--- NOTE | 2024-09-20 11:00 | HMH.OTOPEV ---
OT Inpatient Evaluation Rehab OT Outpatient Eval Start: 09/20/24 10:51 Freq: Status: Active Protocol: Document 09/20/24 10:51 RMARSHALL (Rec: 09/20/24 10:59 [facility] [id number]) E-signed By Luis Alberto Branch, OT Outpatient Therapy Subjective History Subjective History Pt is a 49 year old female who reports to therapy for initial evaluation to left shoulder. Pt reports her pain in left shoulder began ~1 year ago, but has become worse within the last 3 months. Pt does not recall a specific injury causing pain to begin. However, pt was very active with martial arts up until 1 year ago when her pain began. She has also been experiencing some neck discomfort and pain. Pt is left hand dominant. 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 Pt received a steroid injection in left shoulder in July 2024, but did not experience any improvement with pain. MRI was completed as well with no acute findings. Pt does demonstrate with decreased AROM and strength at left shoulder. Pt will continue to be seen twice a week in order to address left shoulder deficits. New diagnosis of cancer in past 12 No months? Chief Complaint Pain,Stiff,Paresthesia, Weakness Symptom Type Ache,Throb,Sharp,Dull,Burning, Tingling Symptoms Relieved By Rest/Positioning Symptoms Aggravated By Physical Activity,Lifting Prior Functional Limitations None Current Functional Limitations Reaching,Lifting,Housework, Dressing,Sleeping,Recreation Activity Symptom Description Constant but Variable Level of pain today (0-10) 3 Pain scale - at its best (0-10) 3 Pain scale - at its worst (0-10) 8 Shoulder/Elbow Eval Shoulder Objective Measurements Shoulder ROM Left Shoulder Abduction Active Range of 110 degrees Motion (degrees) Shoulder Flexion Active Range of Motion 135 degrees (degrees) Query Text: Shoulder External Rotation Active Range 55 degrees of Motion (degrees) Shoulder Internal Rotation Active Range 45 degrees of Motion (degrees) Shoulder MMT Shoulder Abduction Strength Grade 3 Fair Shoulder Flexion Strength Grade 3 Fair Shoulder External Rotation Strength 3 Fair Grade Shoulder Internal Rotation Strength 3 Fair Grade Shoulder Strength Patient Testing Sitting Position Elbow Objective Measurements QuickDASH Activities Please rate your ability to do the following activities in the last week by selecting the number below the appropriate response. 1. Open a tight or new jar. Severe difficulty 2. Do heavy metal and plastic heater (e.g., wash Moderate difficulty youssef, floors). 3. Carry a shopping bag or briefcase. Moderate difficulty 4. Wash your back. Unable 5. Use a knife to cut food. Mild difficulty 6. Recreational activities in which you Severe difficulty take some force or impact through your arm, shoulder, or hand (e.g., golf, hammering, tennis, etc.). 7. During the past week, to what extent Quite a bit has your arm, shoulder or hand problem interfered with your normal social activities with family, friends, neighbors or groups? 8. During the past week, were you Very limited limited in your work or other regular daily activites as a result of your arm, shoulder or hand problem? 9. Arm, shoulder or hand pain. Severe 10. Tingling (pins and needles) in your Moderate arm, shoulder or hand. 11. During the past week, how much Severe difficulty difficulty have you had sleeping because of the pain in your arm, shoulder or hand? Quick DASH 40 OT Outpatient Assessment Impairments Problems/Impairments Palpation Tenderness,Impaired Range of Motion,Impaired Strength,Impaired Endurance, Impaired Lifting,Impaired Dressing,Impaired Shower/ Bathing,Impaired Household Care,Impaired Recreational Activities,Subjective C/O Pain Prognosis Rehab Potential Good Clinical Impression Consistent with Diagnosis Yes Short Term Goals Number of Weeks 3 Increase Range of Motion Yes: Flex: 145 Abd: 120 ER: 75 IR: 55 Increase Strength Yes: 3+/5 throughout L shoulder Increase Endurance Yes: Pt will tolerate L shoulder exercises for ~20 minutes prior to rest. Decrease Subjective C/O Pain Yes: 6/10 at worst Patient to be Ind w/ HEP Yes: AAROM exericses; Wands, wall wipes, corner stretch Improve Quick Dash Score Yes: Activities: 30 or below Underwriting Internship Goals Number of Weeks 6 Increase Range of Motion Yes: Flex: 150 Abd: 140 ER: 80 IR: 65 Increase Strength Yes: 4-/5 throughout L shoulder Increase Endurance Yes: Pt will tolerate L shoulder exercises for ~30 minutes prior to rest. Decrease Subjective C/O Pain Yes: 3/10 at worst Patient to be Ind w/ Advanced HEP Yes: Advanced strengthening exericses Improve Quick Dash Score Yes: Activities: 25 or below Outpatient Therapy Plan of Care Treatment Plan May Include Therapeutic Exercise Including Home Yes Exercise Program Manual Therapy Techniques Yes Neuromuscular Re-education Yes Therapeutic Activities to Return to Yes Previous Functional/Work Level ADL/Self Care Education Yes Dry Needling Yes Thermal Modalities Yes Electrical Stimulation Yes Ultrasound/Phonophoresis Yes Iontophoresis Yes Massage Yes Eval/Re-Eval Yes Frequency Times per week 2 Duration Number of Weeks 6 Addendums This patient is a candidate for social No or vocational rehab? Patient/Guardian verbally acknowledges Yes understanding of treatment program and consents to further treatment? Patient/Guardian verbally acknowledges Yes understanding of diagnosis, prognosis and goals for treatment? Eval Complexity OT Charge 29671 - Moderate Complexity PHYSICIAN CERTIFICATION: I certify the specified therapy services for Shaila Elletorrie Hein are required, authorized, and reviewed every 30 days.
== END 2024-10-05 23:59 | disposition home or self-care (01) ==
LOC: OT 10:00
PROVIDERS: PCP Internal Medicine; Visit Provider Orthopaedic Surgery
DX: M25.512 Pain in left shoulder (principal); M67.912 Unspecified disorder of synovium and tendon, left shoulder
CPT/HCPCS: 97014; 97110; 97140; 97166; 97530; G0283

== ENCOUNTER 2024-10-09 09:57 | Outpatient (RCR) | payer BC, OTHER, SELFPAY | END 2024-10-09 23:59 | disposition home or self-care (01) | LOC: OT 09:57 | PROVIDERS: PCP Internal Medicine; Visit Provider Orthopaedic Surgery | DX: M25.512 Pain in left shoulder (principal); M67.912 Unspecified disorder of synovium and tendon, left shoulder | CPT/HCPCS: 97014; 97110; 97140; G0283 ==

== ENCOUNTER 2024-11-09 08:11 | Outpatient (CLI) | payer BC, OTHER, SELFPAY ==
--- NOTE | 2024-11-09 08:15 | MR_ITS ---
FINAL REPORT TECHNIQUE: Multiplanar MR without contrast CLINICAL HISTORY: CERVICAL SPINE PAIN pain in neck and left arm with tingling , numbness and burning in left hand lrom in arm FINDINGS: Limited images of the posterior fossa are unremarkable. Alignment is normal. Cervical spinal cord shows normal signal and contour. C2-3: Unremarkable C3-4: Minimal annular disc bulge without canal stenosis. C4-5: Unremarkable C5-6: Minimal annular disc bulge without canal stenosis. C6-7: Mild annular disc bulge without canal stenosis. C7-T1: Unremarkable IMPRESSION: Mild multilevel degenerative disc changes without canal stenosis or nerve root compression. Reviewed, Interpreted and Dictated by Sterling Neumann MD Transcribed by Corrina Dewey Authenticated and [facility]
== END 2024-11-09 23:59 | disposition home or self-care (01) ==
LOC: RAD 08:12
PROVIDERS: PCP Internal Medicine; Visit Provider Internal Medicine Cardiovascular Disease
DX: M54.2 Cervicalgia (principal)
CPT/HCPCS: 72141

== ENCOUNTER 2024-12-04 17:00 | Outpatient (RCR) | payer BC, OTHER, SELFPAY | END 2024-12-04 23:59 | disposition home or self-care (01) | LOC: PT 17:00 | PROVIDERS: PCP Internal Medicine; Visit Provider Internal Medicine Gastroenterology | DX: M75.02 Adhesive capsulitis of left shoulder (principal) | CPT/HCPCS: 97014; 97110; 97140; 97163; G0283 ==

== ENCOUNTER 2025-01-02 17:00 | Outpatient (RCR) | payer BC, OTHER, SELFPAY | END 2025-01-02 23:59 | disposition home or self-care (01) | LOC: PT 17:00 | PROVIDERS: PCP Internal Medicine; Visit Provider Internal Medicine Gastroenterology | DX: M75.02 Adhesive capsulitis of left shoulder (principal) | CPT/HCPCS: 97014; 97110; 97140; G0283 ==

== ENCOUNTER 2025-01-29 17:00 | Outpatient (RCR) | payer BC, OTHER, SELFPAY | END 2025-01-29 23:59 | disposition home or self-care (01) | LOC: PT 17:00 | PROVIDERS: PCP Internal Medicine; Visit Provider Internal Medicine Gastroenterology | DX: M75.02 Adhesive capsulitis of left shoulder (principal) | CPT/HCPCS: 20560; 97014; 97016; 97035; 97110; 97140; G0283 ==

== ENCOUNTER 2025-02-08 12:39 | Day surgery (SDC) | payer BC, OTHER, SELFPAY ==
[2025-02-01 13:26] VITALS: BMI 22.8
[2025-02-08 12:55] VITALS: BP 125/76; PULSE 76; RESP 18; TEMP 36.1; O2SAT 99
[2025-02-08] MEDS: LACTATED RINGERS 1000ML 1,000 ML 50 ML IV (13:03)
--- NOTE | 2025-02-08 14:04 | EXP.HP ---
History of Present Illness *Admission Date: 02/08/25 *History of present illness: Mrs. Hein is a 49-year-old female who is here for screening colonoscopy. The examination is deemed medically necessary for screening colonoscopy. The patient has been seen, interviewed and examined prior to the procedure by both myself and the anesthesia provider. [facility] Disclaimer: The information contained in this section may have been updated after the patient was seen, as this information can be updated by other users. 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 (Updated 02/08/25 @ 14:05 by Kai Ramsay II, MD) Port-A-Cath in place Small intestine cancer Hypertension Cancer Migraine Asthma Hypertension Surgical History History of hysterectomy History of tubal ligation History of Whipple procedure History of cholecystectomy Family History Other Family history of hypertension Social History Smoking Status: Never smoker second hand exposure: No alcohol intake: current alcohol intake frequency: a few times a week substance use type: denies use current occupational status: employed Travel in the last 8 weeks?: None household members: spouse housing: house 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 current occupational exposures/hazards: No caffeine: Yes Have you lived/traveled outside US in past 30 days?: No Contact w/someone who lives/traveled outside US past 30 days?: No Exposure to someone with infectious disease in past 14 days?: No Do you have a fever (greater than 100.4 F or 38 C)?: No Have you tested positive for COVID-19?: No Exposed to someone with COVID-19 in past 14 days?: No Do you have a sore throat?: No Do you have a cough?: No Do you have any weakness?: No Are you experiencing any nausea/vomitting?: No Do you have any diarrhea?: No Are you experiencing any unusual bleeding?: No Do you have any muscle aches/pain?: No Do you have any abdominal pain?: No Are you experiencing loss of taste or smell?: No Other 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 Have you received the Flu Vaccine for this season: No Have you received the Pneumonia Vaccine: Yes Review of Systems Review of Systems Review of systems (narrative): Negative *Cardiovascular Comments: Negative *Gastrointestinal Comments: Negative *Genitourinary Comments: Negative *Musculoskeletal Comments: Negative *Neurologic Comments: Negative Meds Home Medications and Allergies Home Medications ?Medication ?Instructions ?Recorded ?Confirmed ?Type albuterol sulfate 90 mcg/actuation 1 - 2 puffs inhalation Q4-6H PRN 10/23/18 02/08/25 Rx aerosol inhaler Shortness Of Breath Or Wheezing #1 inh levocetirizine 5 mg tablet 5 mg PO DAILY Allergy symptoms 08/12/20 02/08/25 History fluticasone fur. 200 mcg-umeclid 1 ea inhalation DAILY COPD 07/28/22 02/08/25 History 62.5 mcg-vilant 25 mcg inhalat.powder (Trelegy Ellipta) fremanezumab-vfrm 225 mg/1.5 mL 225 mg SQ MONTHLY migraine 07/28/22 02/08/25 History subcutaneous auto-injector (Ajovy) prevention montelukast 10 mg tablet 10 mg PO PM Allergy symptoms 07/28/22 02/08/25 History nebivolol 5 mg tablet (Bystolic) 5 mg PO DAILY blood pressure 07/28/22 02/08/25 History Held on 07/29/22. Instructions: Resume on 08/05/22. Until follow up with PCP. pantoprazole 40 mg tablet,delayed 40 mg PO BID acid reflux 07/28/22 02/08/25 History release ubrogepant 100 mg tablet (Ubrelvy) 100 mg PO BID PRN . 06/21/23 02/08/25 History fluticasone propionate 50 50 mcg intranasal NEEDED PRN CON 04/19/24 02/08/25 History mcg/actuation nasal spray,suspension fremanezumab-vfrm 225 mg/1.5 mL 225 mg SQ MONTHLY 04/19/24 02/08/25 History subcutaneous auto-injector (Ajovy) tizanidine 4 mg tablet 4 mg PO HS 04/19/24 02/08/25 History topiramate 100 mg tablet 100 mg PO HS 04/19/24 02/08/25 History estradiol 0.05 mg/24 hr semiweekly 0.05 mg topical .2XWEEK 07/26/24 02/08/25 History transdermal patch (Gabby) Perimenopause umvjyp-[id number]-firgqys 2 cap PO ACHS pancreatitis #720 07/26/24 02/08/25 Rx 36,000-114,000-180,000 unit caps capsule,delay rel (Creon) promethazine 12.5 mg tablet 12.5 mg PO DAILYP PRN Nausea And 07/26/24 02/08/25 History Vomiting ibuprofen 800 mg tablet 800 mg PO TID 02/01/25 02/08/25 History New Prescriptions to Start Prescriptions: Allergies Allergy/AdvReac Type Severity Reaction Status Date / Time Penicillins (PENICILLINS) Allergy Mild Hives Verified 02/08/25 12:53 codeine Allergy itching Verified 02/08/25 12:53 hydrocodone Allergy itching Verified 02/08/25 12:53 Exam Data for Last 24 hours Vital signs and Labs for Last 24 Hours: Temp Pulse Resp BP Pulse Ox O2 Del Method 97 F L 76 18 125/76 99 Room Air 02/08/25 12:55 02/08/25 12:55 02/08/25 12:55 02/08/25 12:55 02/08/25 12:55 02/08/25 12:55 *Routine HEENT Exam Head: Present normocephalic Eye: Present EOMI and PERRL ENT: Present mucous membranes moist *Routine Neck Exam Neck: Present supple *Routine Respiratory Exam Respiratory: Present CTA bilaterally *Routine Cardiovascular Exam Cardiovascular: Present RRR *Routine Abdominal Exam Abdominal: Present soft and normoactive bowel sounds; Absent tenderness *Routine Rectal Exam Rectal:: deferred *Routine Genitalia Exam Genitalia:: deferred *Routine Extremities Exam Extremities: Absent cyanosis, clubbing or edema *Routine Skin Exam Skin: Present warm; Absent rash *Routine Neurological Exam Neurological: Present alert and oriented X3 Assessment and Plan *Assessment and plan (1) Screening for colon cancer: Status: Acute Category: Medical Code(s): Z12.11 - Encounter for screening for malignant neoplasm of colon Plan A/P: 1. Screening for colon cancer is the preprocedural diagnosis. The patient will be anesthetized/sedated using MAC sedation. The patient has been seen and examined. Cardiac and lung assessment prior to the examination is stable. Proceed with planned screening colonoscopy.
--- NOTE | 2025-02-08 14:12 | P.PCN_ITS ---
[facility] Procedure Note Date: 02/08/25 Time: 14:29 Procedure Note:: Colonoscopy Procedure Report: Colonoscopy Endoscopist: Kai Ramsay II, MD Referring physician: Stacy Valerio MD, [address] [place] [address], [facility]. [address] [place] [id number] Date of Procedure: February 08, 2025 Equipment: Olympus 190 variable stiffness pediatric colonoscope Sedation: MAC sedation Indication: Mrs. Corbin is a 49-year-old female who is here for screening colonoscopy. Her last colonoscopy was 20+ years ago. She reports no abdominal pain, weight loss, change in her bowel habits or rectal bleeding. She reports no family history of colon cancer. Procedure: Prior to the procedure, a history and physical exam was performed, and patient's medications and allergies were reviewed. The risks, benefits and alternatives of the sedation and procedure were discussed with the patient. All questions were answered and informed consent was obtained. The patient was brought to the procedure room. Patient identification and proposed procedure were verified by the physician and the nurse. The patient was placed in a left lateral decubitus position and the scope was passed under direct vision. Throughout the procedure, the patient's blood pressure, pulse, and oxygen saturations were monitored continuously. The colonoscopy was accomplished without difficulty. The patient tolerated the procedure well. Findings: On digital rectal examination there was normal rectal tone. There were no external hemorrhoids. The colonoscope was introduced through the anal canal to the rectum and advanced to the cecum. The ileocecal valve and appendiceal orifice were identified. The scope was advanced a short distance into the ileum which appeared grossly normal. The scope was then withdrawn into the colon. The cecum, ascending and transverse colon and mucosa were grossly normal. There were scattered diverticuli throughout the descending and sigmoid colon (LEFT colon). The rectum itself was normal. Upon retroflexion within the rectum there were grade 1-2 internal hemorrhoids. The preparation was excellent throughout with [place] Preparation Score of 9. The cecal time was 12 minutes. Impression: 1. Left-sided diverticulosis 2. Grade 1-2 internal hemorrhoids Plan: The patient will not require surveillance colonoscopy again for 10 years by ACS guidelines.
--- NOTE | 2025-02-08 14:24 | EXP.ANES.CKL ---
[facility] Disclaimer: The information contained in this section may have been updated after the patient was seen, as this information can be updated by other users. 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 (Updated 02/08/25 @ 14:05 by Kai Ramsay II, MD) Port-A-Cath in place Small intestine cancer Hypertension Cancer Migraine Asthma Hypertension Surgical History History of hysterectomy History of tubal ligation History of Whipple procedure History of cholecystectomy Family History Other Family history of hypertension Social History Smoking Status: Never smoker second hand exposure: No alcohol intake: current alcohol intake frequency: a few times a week substance use type: denies use current occupational status: employed and retired Travel in the last 8 weeks?: None household members: spouse housing: house 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 current occupational exposures/hazards: No caffeine: Yes Have you lived/traveled outside [place] in past 30 days?: No Contact w/someone who lives/traveled outside US past 30 days?: No Exposure to someone with infectious disease in past 14 days?: No Do you have a fever (greater than 100.4 F or 38 C)?: No Have you tested positive for COVID-19?: No Exposed to someone with COVID-19 in past 14 days?: No Do you have a sore throat?: No Do you have a cough?: No Do you have any weakness?: No Are you experiencing any nausea/vomitting?: No Do you have any diarrhea?: No Are you experiencing any unusual bleeding?: No Do you have any muscle aches/pain?: No Do you have any abdominal pain?: No Are you experiencing loss of taste or smell?: No [facility] Anesthesia Checklist Patient Identification Patient Identification: Arm Band and Verbal (Name & ) Structural Data Admitted From: Home Planned Operative Procedure/s: Colonoscopy Consent for Planned Operative Procedure(s) Verified: Yes Verified Documents: Surgical Consent NPO Status Verified Time NPO: 00:00 Chart Verification Results Verified: None Additional verifications Anesthesia Reactions: No Airway Assessment Mallampati Score:: Class II C-Spine Mobility Assessed: Yes TMJ Mobility Assessed: Yes Dentition: Good Dentition Neurological Assessment Level of Consciousness: Awake, Alert and Appropriate Hx Seizures: No Numbness or tingling in extremities: No Anesthesia Plan Anesthesia Risk discussed: Yes Anesthesia Plan: Verified ASA Class: II Anesthesia Type: MAC
[2025-02-08 14:32] VITALS: BP 115/63; PULSE 75; RESP 17; TEMP 36.1; O2SAT 96
[2025-02-08 14:42] VITALS: BP 138/64; PULSE 80; RESP 18; TEMP 36.1; O2SAT 97
[2025-02-08 14:52] VITALS: BP 137/82; PULSE 77; RESP 18; TEMP 36.1; O2SAT 97
[2025-02-08 15:02] VITALS: BP 133/85; PULSE 81; RESP 18; TEMP 36.1; O2SAT 100
== END 2025-02-08 15:04 | disposition home or self-care (01) ==
PROVIDERS: PCP Internal Medicine; Visit Provider Internal Medicine Gastroenterology
PROC: 0DJD8ZZ Inspection of Lower Intestinal Tract, Via Natural or Artificial Opening Endoscopic (ICD-10-PCS; CPT 45378; principal; 2025-02-08 14:00)
DX: Z12.11 Encounter for screening for malignant neoplasm of colon (principal); K57.90 Diverticulosis of intestine, part unspecified, without perforation or abscess without bleeding; K64.0 First degree hemorrhoids; K64.1 Second degree hemorrhoids; J45.909 Unspecified asthma, uncomplicated; I10 Essential (primary) hypertension; Z85.068 Personal history of other malignant neoplasm of small intestine; Z88.5 Allergy status to narcotic agent; Z88.0 Allergy status to penicillin; Z79.899 Other long term (current) drug therapy
CPT/HCPCS: 45378; J2003; J2704; J7120

== ENCOUNTER 2025-03-05 17:00 | Outpatient (RCR) | payer BC, OTHER, SELFPAY | END 2025-03-05 23:59 | disposition home or self-care (01) | LOC: PT 17:00 | PROVIDERS: PCP Internal Medicine; Visit Provider Internal Medicine Gastroenterology | DX: M75.02 Adhesive capsulitis of left shoulder (principal) | CPT/HCPCS: 20560; 97014; 97110; 97140; G0283 ==

== ENCOUNTER 2025-03-19 13:01 | Outpatient (RCR) | payer BC, OTHER, SELFPAY | END 2025-03-19 23:59 | disposition home or self-care (01) | LOC: PT 13:01 | PROVIDERS: PCP Internal Medicine; Visit Provider Internal Medicine Gastroenterology | DX: M75.02 Adhesive capsulitis of left shoulder (principal) | CPT/HCPCS: 97110; 97140 ==

== ENCOUNTER 2025-05-07 13:00 | Outpatient (RCR) | payer BC, OTHER, SELFPAY | END 2025-05-07 23:59 | disposition home or self-care (01) | LOC: PT 13:00 | PROVIDERS: PCP Internal Medicine; Visit Provider Specialist/Technologist Athletic Trainer | DX: M75.02 Adhesive capsulitis of left shoulder (principal) | CPT/HCPCS: 97014; 97110; 97140; G0283 ==

== ENCOUNTER 2025-05-17 11:02 | Outpatient (RCR) | payer BC, OTHER, SELFPAY | END 2025-05-17 23:59 | disposition home or self-care (01) | LOC: PT 11:02 | PROVIDERS: PCP Internal Medicine; Visit Provider Specialist/Technologist Athletic Trainer | DX: M75.02 Adhesive capsulitis of left shoulder (principal) | CPT/HCPCS: 97110 ==

== ENCOUNTER 2025-07-22 09:44 | Outpatient (CLI) | payer BC, OTHER, SELFPAY ==
--- OUTSIDE RECORDS SUMMARY | 2025-06-18 10:30 | XMS_ITS | Encounter Summary ---
Author Organization [employer] ([place], [place], [place], [place], [place]) Address [address] [place] [address] Care Team Providers Care Respiratory Care Assistant Name Role Phone Stacy Valerio MD Primary Care Provider [phone] Natalie Coats APRN Unavailable [phone] Zehra Rey MD Unavailable [phone] Reason for Visit * Reason Comments Migraine Botulinum Toxin Injection * Clinic Procedure (Routine) - Closed Specialty Diagnoses / Procedures Referred By Contalicia t Referred To Contact Neurology Diagnoses Intractable chronic migraine without aura and without status migrainosus Botox FERNANDEZ 200 Units [place] [employer] Exp: 06/26/25 Natalie Coats APRN [address] [place] [address] [address] [place] [address] Phone: tel: fax: Natalie Coats APRN [address] [place] [address] [address] [place] [address] Phone: tel: fax: Referral ID Status Reason Start Date Expiration Date Visits Re quested Visits Authorized [id number] Closed 06/26/2024 06/26/2025 5 5 Encounter Details Date Type Department Care Team (Latest Contact Info) Description 06/18/2025 10:30 AM EST Procedure Visit [facility] Neurology - [facility] [address] [facility] [address] [place] [address] Natalie Coats APRN [address] [facility] [address] [place] [address] Intractable chronic migraine without aura and without [...] Date Alexandr rded Speak language other than Citizen [place] at home Not on file 08/20/2023 Want [...] 10:42 AM EST documented in this encounter Progress Notes * [...] frontalis: 10 units divided amongst site(s) Right pulmonologist: 5 units divided amongst site(s) Left pulmonologist: 5 units divided amongst site(s) Procerus (midline): [...] Topiramate, PRN Ubrelvy/promethazine. Return in 12 weeks. EL DRILLER documented in this encounter Plan of Treatment Upcoming Encounters Date Type Department Care Team (Late st Contact Info) Description 09/10/2025 10:30 AM EST Procedure Visit [facility] Neurology - [facility] [address] [place] [address] Natalie Coats APRN [address] [facility] [address] [place], [place] [id number] 11/27/2025 10:30 AM EDT Office Visit [facility] Primary Care [address] [facility] [address] [place] [address] Stacy Valerio MD [address] [facility] [address] [place] [address] 05/06/2026 2:30 PM EDT Appointment [facility] Breast Imaging [address] [place] [address] [address] [place] [address] Stacy Valerio MD [address] [facility] [address] [place] [address] documented as of this encounter Visit Diagnoses Diagnosis Intractable chronic migraine without aura and without status migrainosus- Primary documented in this encounter Administered Medications Inactive Administered Medications - up to 3 most recent administrations Medication Order MAR Action Action Date Dose Rate Site botulinum toxin type A (BOTOX) injection 200 Units 200 Units Once, intraMUSCULAR, On 06/18/25 at 1130, For 1 doseIndications:Intractable chronic migraine without aura and without status migrainosus Given 06/18/2025 11:07 AM EST 200 Units Othe r documented in this encounter Care Teams Respiratory Care Assistant Relationship Specialty Start Date End Date Stacy Valerio MD [address] [facility] [address] [place], [place] [id number] PCP - General Internal Medicine/Pediatrics 05/06/22 Natalie Coats, SPLASH LINE OPERATOR [address] [facility] [address] [place], [place] [id number] Neurology 11/30/23 Zehra Rey MD [address] [facility] [address] [place], [place] [id number] Interventional Cardiology 11/30/23 documented as of this encounter
[2025-07-24 08:28] LABS: Coronavirus 19, PCR Not Detected (NotDetected); Influenza A, PCR Not Detected (NotDetected); Influenza B, PCR Not Detected (NotDetected)
--- OUTSIDE RECORDS SUMMARY | 2025-07-24 10:07 | XMS_ITS | Continuity of Care Document ---
Author Organization [facility] Deysi arteaga ALVAREZ [place] Address [address] [place] [address] Care Team Providers Care Manager Mechanical Maintenance Name Role Phone DEEPALI HOWELL Primary Care Provider DEEPALI HOWELL Referring Provider Assessment No assessment recorded. Plan of Treatment Reminders Order Date Submit Date Provider Last Modified By Organization Details Last Modified Time Details Appointments None record ed. Lab None record ed. Referral None record ed. Procedures None record ed. Surgeries None record ed. Imaging None record ed. Medication Orders None record ed. Patient TargetsNo targets recorded. Patient InstructionsNo instructions recorded. Reason for Referral None Reported. 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 Procedures Surgical History Date Name Laterality Status Provider Name and Address Organization Details Recorded Time 018 Nerve Block; Occipital Nerve(s) completed [place], [address], [place] [facility] 10/05/2017 18:55:19 017 Nerve Block; Occipital Nerve(s) completed [place], [address], [facility] 01/27/2017 11:00:29 Cholecystectomy completed [facility] 01/07/2017 10:33:35 Other completed [facility] 01/07/2017 10:33:57 Hysterectomy completed [facility] 01/07/2017 10:34:00 Tubal Ligation completed [facility] 01/07/2017 10:34:03 Other completed [facility] 01/07/2017 10:34:36 Imaging Results None recorded. Procedure Notes None recorded. Medical Equipment None Reported. Allergies Allergen ID Allergen Name Allergen Category Reaction Reaction Severity Criticality Documentation Date Start Date Code Code System Note Provider Name and Address Organization Details Recorded Time 751722 Product containin g penicilli n (product) medicatio n Not available Not available Not available 07/02/20162005 75151 8001 SNOMED Comme nt: Creat ed By: Reddy Khan eated Date: 2005 5:13: 32 PM; Not Available [facility] 6 10:13:07 Medications Name Sig Start Date Stop Date Status Note LastModified by Organization Details LastModified Time Prescript ion - Prior Authoriza tion Request active Not Available Not Available Not Available Singulair 10 mg tablet Take 1 tablet every day by oral route. active Not Available Not Available No t Available Protonix 40 mg tablet,de layed release Take 1 tablet every day by oral route. active Not Available Not Available No t Available Zestoreti c 10 mg-12.5 mg tablet Daily active Frequenc y: daily;Me dication Descript ion: hydrochl orothiaz kenyon-josh nopril; Dosage:1 ; Route:or al; refills: 5; Quantity :30 tablet Not Available Not Available Not Available Multiple Vitamin capsule Daily active Duration : 30 days;Ronni quency: daily;Me dication Descript ion: multivit horton; Dosage:1 ; Route:or al; refills: 3; Quantity :100 capsule Not Available Not Available Not Available Claritin 10 mg tablet As needed 07/12 completed Frequenc y: prn;Medi cation Descript ion: loratadi ne; Dosage:1 ; Route:or al; refills: 0; Quantity :30 tablet Not Available Not Available Not Available promethaz ine 12.5 mg tablet AT ONSET MIGRAINE TAKE ONE TO TWO TABLETS BY MOUTH EVERY 6 HOURS NEEDED 2019 active Duration : 4 days;Ins truction s: AT ONSET MIGRAINE TAKE ONE TO TWO TABLETS BY MOUTH EVERY 6 HOURS NEEDED;M edicatio n Descript ion: prometha zine; Route:or al; refills: 11; Quantity :30 tablet Not Available Not Available Not Available naproxen 250 mg tablet Take 1 tablet twice a day by oral route. active Not Available Not Available No t Available Protonix 20 mg tablet,de layed release Daily 07/12 completed Duration : 30 days;Ronni quency: daily;Me dication Descript ion: pantopra zole; Dosage:1 ; Route:or al; refills: 5; Quantity :30 delayed release tablet Not Available Not Available Not Available amitripty line 50 mg tablet Take 1 tablet every day by oral route. active Not Available Not Available No t Available propranol ol 10 mg tablet Two times a day 01/07 completed Frequenc y: bid;Medi cation Descript ion: proprano lol; Dosage:1 ; Route:or al; refills: 0 Not Available Not Available Not Available amitripty line 25 mg tablet 1-2 qhs 04/30 completed Not Available Not Available Not Available Astelin 137 mcg (0.1 %) nasal spray [place] 2 sprays twice a day by intranas al route. active Not Available Not Available No t Available hydroxych loroquine 200 mg tablet Take 1 tablet twice a day by oral route. active Not Available Not Available No t Available cefdinir 300 mg capsule Take 2 capsules every day by oral route. 10/05 completed Not Available Not Available Not Available Ventolin HFA 90 mcg/actua tion aerosol inhaler 01/07 completed Medicati on Descript ion: albutero l; Route:in halation ; refills: 0 Not Available Not Available Not Available Benadryl 25 mg capsule Four times a day 07/12 completed Frequenc y: qid;Alt Frequenc y: prn;Medi cation Descript ion: diphenhy dramine; Dosage:1 -2; Route:or al; refills: 0; Quantity :40 capsule Not Available Not Available Not Available Spiriva with [employer] r 18 mcg and inhalatio n capsules Inhale 1 capsule every day by inhalati on route. active Not Available Not Available No t Available Xyzal 5 mg tablet Take 1 tablet every day by oral route. active Not Available Not Available No t Available Bystolic 5 mg tablet Take 1 tablet every day by oral route. active Not Available Not Available No t Available Treximet 85 mg-500 mg tablet 1 at onset; may repeat in 2hrs; max 2 in 24hrs 2017 active Duration : 30 days;Ins truction s: TAKE ONE TABLET BY MOUTH AT THE ONSET OF HEADACHE NEEDED, MAY REPEAT AFTER 2 HOURS IF NEEDED (MAX OF 2/24 HOURS, 4/WK, 9/MONTH) ;Medicat ion Descript ion: naproxen -sumatri ptan; Route:or al; refills: 11; Quantity :9 tablet Not Available Not Available Not Available melatonin 10 mg capsule 01/14 completed Medicati on Descript ion: melatoni n; Route:or al; refills: 0 Not Available Not Available Not Available Breo Ellipta 100 mcg-25 mcg/dose powder for inhalatio n Inhale 1 puff every day by inhalati on route. active Not Available Not Available No t Available Flonase Allergy Relief 50 mcg/actua tion nasal spray,thao pension Daily 2011 active Duration : 30 days;Ronni quency: daily;Me dication Descript ion: fluticas one nasal; Dosage:1 spray; Route:na sd; refills: 6; Quantity :1 spray Not Available Not Available Not Available albuterol sulfate 90 mcg/actua tion breath activated powder inhaler Inhale 2 puffs every 4 hours by inhalati on route as needed. active Not Available Not Available No t Available Ajovy Syringe 225 mg/1.5 mL subcutane ous active Not Available Not Available Not Available Ubrelvy 100 mg tablet active Not Available Not Available Not Available Ajovy 225 mg/1.5 mL subcutane ous auto-inje ctor 1.5ml SQ every month 2020 active Not Available Not Available Not Avai lable Vitals None Recorded Social History Question Answer Notes LastModified by Organizat ion Details LastModified Time Tobacco Smoking Status Never Smoker Susana Fortunato [facility] 01/07/2017 10:33:18 Live Alone Or With Others? With Others Information not available 01/07/2017 Marital Status [email or web address] Informat ion not available 01/07/2017 What Was The Date Of Your Most Recent Tobacco Screening? 07/12/2018 Information n ot available 09/26/2019 Sex: Unknown Functional Status Question Answer Note LastModified by Organizat ion Details LastModified Time What is your level of alcohol consumption? 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 Family History Relationship Description Onset Age of this Age Resolved Age Notes LastModified by Organization Details LastModified Time Maternal Grandmother Family history of malignant neoplasm [email or web address] Not available 08/2016 10:32:46 Maternal Grandmother Diabetes mellitus [email or web address] Not available 08/2016 10:32:56 Maternal Grandfather Family history of malignant neoplasm awinefordner Not available 08/2016 10:32:46 Paternal Grandfather Harmful pattern of use of alcohol awinefordner Not available 08/2016 10:32:52 Father Hypertensive disorder awinefordner Not available 08/2016 10:33:05 Paternal Grandmother Cerebrovascu lar accident awinefordner Not available 01/07/2017 10:33:08 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 Condition Response Diabetes N Bleeding Disorder N Arthritis Y Emphysema N Acid Reflux (GERD) Y Cancer Y Migraines Y Depression Y Asthma Y COPD N Heart Disease N Hypertension Y Gynecological HistoryNo gynecological history recorded. Obstetrics History GPAL:G 0 P 0 0 0 0 Past Encounters Encounter ID Performer Location Encounter Start Date Encounter Closed Date Diagnosis/Indication Diagnosis SNOMED-CT Code Diagnosis ICD10 Code Diagnosis IMO Codes Diagnosis Note [id number] LEAH URBANO PA-C [place] [address] [place] [address] 05/22/2025 12:44:13 05/22/2025 15:00:46 Multiple benign melanocytic nevi 701426356 D22.5 I78.1 L82.1 L81.4 Benign appearing lesions noted on exam. Reassured. Monitor for changes and call us for appointmen t if changing or worrisome. Recommende d daily SPF 30+ with zinc or titanium oxide cream.Foll ow up in 1 year for a FSE. Health Concerns Section Related Observation LastModified by Organization Detai ls LastModified Time None Recorded Concern Status LastModified by Organization Details LastModified Time None Recorded Payers Encounter Date Sequence Insurance Name Policy Number Policy Nunez Covered Member ID Nunez Member ID Guarantor Name 05/22/2025 1 [employer] [id number] Ugo Hein [id number] Shaila Hein Notes Date Note Type Note Provider Name and Address Organization Details Recorded Time 05/22/2025 text/html Here for a full body skin examination - last skin check: 01/07/2023- no history of skin cancer- spots of concern today: R breast, back MICKEY SOSAC [address] [place], [address], [facility] 05/24/2025 08:03:44 OBGyn Episode No OBEpisode recorded.
--- OUTSIDE RECORDS SUMMARY | 2025-07-24 10:08 | XMS_ITS | Encounter Summary ---
Author Organization [employer] ([place], [place], [place], [place], [place]) Address [address] [place] [address] Care Team Providers Care Senior Sales Representative Name Role Phone Stacy Valerio MD Primary Care Provider [phone] Natalie Coats APRN Unavailable [phone] Zehra Rey MD Unavailable [phone] Reason for Visit * Reason Onset Date Comments [facility] office is req. ref. letter be faxed f nelda kinney. 01/01/2023 Encounter Details Date Type Department Care Team (Late st Contact Info) Description 01/01/2023 Telephone [facility] Primary Care [address] [facility] [address] [place] [address] Agusto Lantigua MD [address] [facility] [place] [address] [facility] office is req. ref. letter be faxed from [facility]. Social History Tobacco Use Types Packs/Day Years Used Date Smoking Tobacco: Never Smokeless Tobacco: Never Alcohol Use Standard Drinks/Week Comments Yes 0 (1 standard drink = 0.6 oz pur e alcohol) Comments No Sex and Gender Information Value Date Recorded Sex Assigned at Female 05/02/2025 10:31 AM CDT Legal Sex Female 1:09 PM CDT Gender Identity Female 05/02/2025 10:31 AM CDT Sexual Orientation Straight 05/02/2025 10 :31 AM CDT documented as of this encounter Miscellaneous Notes * Telephone Encounter - Nga M Jasmin - 01/01/2023 2:34 PM EDT Patient Shaila Hein 1975 called the office of and stated the the regional program manager she chose was Dr. Hu and their office requires the referral letter that was given to the patient be faxed over from the primary care providers office. Dr Hu's fax number [phone]. Patient's contact number is [phone]. documented in this encounter Plan of Treatment Upcoming Encounters Date Type Department Care Team (Late st Contact Info) Description 09/10/2025 10:30 AM EST Procedure Visit [facility] Neurology - [facility] [address] [facility] [address] [place] [id number] Natalie Coats, GABRIELLE [address] [facility] [address] [place] [address] 11/27/2025 10:30 AM EDT Office Visit [facility] Primary Care [address] [facility] [address] [place] [address] Stacy Valerio MD [address] [facility] [address] [place] [address] 05/06/2026 2:30 PM EDT Appointment [facility] Breast Imaging [address] [facility] [address] [place] [address] Stacy Valerio MD [address] [facility] [address] [place] [address] documented as of this encounter Visit Diagnoses Not on filedocumented in this encounter Care Teams Senior Sales Representative Relationship Specialty Start Date End Date Stacy Valerio MD [address] [facility] [address] [place] [address] PCP - General Internal Medicine/Pediatrics 05/06/22 Natalie Coats, SHOVEL OPERATOR [address] [facility] [address] [place] [address] Neurology 11/30/23 Zehra Rey MD [address] [facility] [address] [place] [address] Interventional Cardiology 11/30/23 documented as of this encounter
--- OUTSIDE RECORDS SUMMARY | 2025-07-24 10:08 | XMS_ITS | Clinical Summary ---
Author Organization [employer] ([place], [place], [place], [place], [place]) Address [address] [place] [address] Care Team Providers Care Citrus Peeler Name Role Phone Stacy Valerio MD Primary Care Provider [phone] Natalie Coats APRN Unavailable [phone] Zehra Rey MD Unavailable [phone] Allergies Active Allergy Reactions Criticality Noted Date Comments Codeine 11/03/2022 Hydrocodone Itching 08/17/2022 Penicillins 10/22/2005 Medications fluticasone-ume clidin-vilanter (Trelegy Ellipta) 100-62.5-25 mcg DsDv Inhale by mouth via inhaler daily. Active albuterol HFA (VENTOLIN HFA) 90 mcg/actuation inhaler Active levocetirizine (XYZAL) 5 MG tablet Active Creon 36,000-114,000- 180,000 unit CpDR capsule Take by mouth. Active montelukast (SINGULAIR) 10 mg tablet Active inFLIXimab (Remicade) 100 mg injection Inject intravenously Look-alike/Morena nd-alike medication. Active fluticasone propionate (FLONASE) 50 mcg/actuation nasal spray 2 sprays daily. 024 Active Ubrelvy 100 mg tabIndications: Migraine without status migrainosus, not intractable, unspecified migraine type Take 1 tablet by mouth 2 (two) times daily as needed (Migraine). 16 tablet 11 025 2025 Active topiramate (TOPAMAX) 100 MG tabletIndicatio ns:Migraine without status migrainosus, not intractable, unspecified migraine type Take 1 tablet (100 mg total) by mouth nightly. 90 tablet 3 025 2025 Active promethazine (PHENERGAN) 12.5 MG tabletIndicatio ns:Nausea and vomiting, unspecified vomiting type Take 1 tablet (12.5 mg total) by mouth every 8 (eight) hours as needed for nausea. 20 tablet 3 025 2025 Active Ajovy Autoinjector 225 mg/1.5 mL AtInIndications :Migraine without status migrainosus, not intractable, unspecified migraine type Inject 225 mg under the skin every 30 (thirty) days for 356 days. 4.5 mL 3 025 2025 Active tiZANidine (ZANAFLEX) 4 MG tabletIndicatio ns:Neck muscle spasm Take 1/2 to 1 tablet PO at bedtime PRN. 30 tablet 5 025 Active nebivoloL (BYSTOLIC) 5 MG tabletIndicatio ns:Hypertension , unspecified type TAKE 1 TABLET DAILY 90 tablet 3 025 Active Xopenex HFA 45 mcg/actuation inhaler 2 puffs. 025 Active Lyllana 0.075 mg/24 hr patch 1 patch twice a week. 025 Active pantoprazole (PROTONIX) 40 MG tabletIndicatio ns:Gastroesopha geal reflux disease, unspecified whether esophagitis present TAKE 1 TABLET TWICE A DAY 180 tablet 3 025 Active pantoprazole (PROTONIX) 40 MG tabletIndicatio ns:Gastroesopha geal reflux disease, unspecified whether esophagitis present Take 1 tablet (40 mg total) by mouth 2 (two) times daily. 180 tablet 3 024 2024 Discontinued Active Problems Problem Noted Date Diagnosed Date Hypertension, unspecified type 11/03/2022 Encounters Date Type Department Care Team Description 06/18/2025 10:30 AM EST Procedure Visit [facility] Neurology - [facility] [place] [address] [place] [address] Natalie Coats APRN Intractable chronic migraine without aura and without status migrainosus (Primary Dx) 06/18/2025 Travel 05/02/2025 2:57 PM EDT - 05/02/2025 11:59 PM EDT Hospital Encounter [facility] Breast Imaging [address] [facility] [address] [place] [address] Stacy Valerio MD Visit for screening mammogram Discharge Disposition: Home or Self Care from Last 3 Months Immunizations Immunization Administration Dates Next Due COVID-19 2022- PFIZER (COM IRNATY) 12 YRS + ([id number]) 10/02/2021 Covid-19 Vaccine MRNA (PF) 1 8yr+ (Moderna)([id number]) 10/03/2021,04/16/2021,09/27/2020,2020 Influenza Four-QIV 6MO+ PF I M ([id number]) 05/08/2022 Influenza Four-qiv Pf 05/29/2020,04/27/2015 Influenza Quad-qiv Non Pf 06/12/2019 Influenza Three-tiv Non-pf 05/08/2022 Influenza, Unspecified 05/12/2017 Pneumococcal, Nos 05/12/2017 Tdap 02/22/2021 Family History 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 Relation Name Comments Heart disease Father Dad Hyperlipidemia Father Dad Hypertension Father Dad Migraines Father Dad Rheum arthritis Father Dad Alcohol abuse Maternal Grandfather Grandma Cancer Maternal Grandfather Grandma Alcohol abuse Maternal Grandmother Grandpa Cancer Maternal Grandmother Grandpa Lung cancer Maternal Grandmother Grandpa Dementia Mother Mom Vascular Cognit asher Impairment Hyperlipidemia Mother Mom Hypertension Mother Mom Relation Name Status Comments Father Dad Maternal Grandfather Grandma Maternal Grandmother Grandpa Mother Mom Social History Tobacco Use Types Packs/Day Years [...] money to buy more. Never true 03/01/20 Within the past 12 months, t he [...] Date Alexandr rded Speak language other than Barbadian at home Not on file 08/20/2023 Want [...] Orientation Straight 05/02/2025 10 :31 AM CDT Last Filed Vital Signs Vital Sign Reading Time Taken Comments Blood Pressure 124/88 11/22/2024 11:16 AM EDT Pulse 66 11/22/2024 11:16 AM EDT Temperature 36.5 C (97.7 F) 11/22/2024 11:16 AM EDT Respiratory Rate 16 05/28/2023 8:35 AM EDT Oxygen Saturation 99% 11/22/2024 11:16 AM EDT Inhaled Oxygen Concentration - - Weight 57.6 kg (127 lb) 06/18/2025 10:42 AM EST Height 157.5 cm (5' 2 ) 06/18/2025 10:42 AM EST Body Mass Index 23.23 06/18/2025 10:42 AM EST Plan of Treatment Upcoming Encounters Date Type Department Care Team (Late st Contact Info) Description 09/10/2025 10:30 AM EST Procedure Visit [facility] Neurology - [facility] [address] [place] [phone] Natalie Coats APRN [address] [facility] [address] [place], [place] [id number] 11/27/2025 10:30 AM EDT Office Visit [facility] Primary Care [address] [facility] [address] [place] [address] Stacy Valerio MD [address] [facility] [address] [place] [address] 05/06/2026 2:30 PM EDT Appointment [facility] Breast Imaging [address] [facility] [address] [place] [address] Stacy Valerio MD [address] [facility] [address] [place] [address] Health Maintenance Due Date Last Done Comments CT Colonography 1973 FOBT/FIT 1973 Fit-DNA (Cologuard) 1975 Sigmoidoscopy 1975 HIV Screening 1988 Hepatitis C Screening 1991 Pap Smear 1994 Pneumococcal 50+ years (1 of 1 - PCV) 2023 Shingles Vaccine (Zoster) (1 of 2) 2023 COVID-19 VACCINE ( - 2024-2 6 season) 2025 10/03/2021, 10/02/2021, 04/16/2021, Additional history exists Influenza Vaccine (#1) 2025 05/08/2022 Depression Screening (12+) 11/22/2025 11/22/2024 Tobacco Cessation Counseling and Screening (12+) 06/18/2026 06/18/2025 Breast Cancer Screening 05/02/2027 05/02/20, 04/04/2024, 01/06/2023, Additional history exists Lipid Panel 11/23/2027 11/22/2024 DTAP/TDAP/TD VACCINES (2 - T d or Tdap) 02/22/2031 02/22/2021 Colonoscopy 03/02/2035 03/02/2025 Colorectal Cancer Screening 03/02/2035 Procedures Procedure Name Priority Date/Time Associated Diagnosis Comments MM DIGITAL MAMMO SCREEN WITH BONNIE BILATERAL Routine 05/02/2025 3:28 PM EDT Visit for screening mammogram HM COLONOSCOPY Routine 03/02/2025 10:25 AM EDT LIPID PANEL Routine 11/22/2024 11:46 AM EDT Elevated blood sugar Hypertension, unspecified type from Last 3 Months or Most Recently Relevant to Health Maintenance Results * MM digital mammo screen with bonnie bilateral (05/02/2025 3:28 PM EDT) Anatomical Region Laterality Modality Breast Bilateral Mammography 05/03/2025 6:39 AM EDT Impressions 05/03/2025 9:35 AM EDT No mammographic evidence of malignancy. BI-RADS CATEGORY: 2 , BENIGN FINDING(S). RECOMMENDED FOLLOW-UP: Annual mammography. A letter including results and recommendations was sent to the patient. Density notification was included for patients with pattern 3 or 4 breast tissue. Patient information was entered into a reminder system with a target due date for the next mammogram. NOTES: Mammography does not detect approximately 10-15% of breast cancers. Physical examination of the breasts by a physician and regular monthly breast self examinations are integral parts of breast cancer screening. A normal mammogram does not exclude breast cancer if there is an abnormal finding on physical examination. When clinically indicated, a biopsy should not be postponed because of a normal mammogram report. Narrative 05/03/2025 9:35 AM EDT BILATERAL SCREENING DIGITAL MAMMOGRAPHY CLINICAL INDICATION: Routine screening. TECHNIQUE: Bilateral CC and MLO views were obtained with digital acquisitions with 3D tomosynthesis. The study was read with the assistance of CAD. COMPARISON: Exams dating back to 2019. DENSITY: There are scattered areas of fibroglandular density. FINDINGS: There are no spiculated masses, areas of distortion or suspicious calcifications. 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 A focal rounded asymmetry in the retroareolar left breast is stable, slightly lateral to the nipple. Stacy Valerio MD IMG MAMMOGRAPHY ORDERABLES Final Result * HM COLONOSCOPY (03/02/2025 10:25 AM EDT) [facility] Provider HEALTH MAINTENANCE Final Result * (ABNORMAL) Lipid panel (11/22/2024 11:46 AM EDT) Pathologist [facility] Cholesterol, Total 202(H) 100 - 199 mg/dL [facility] Triglycerides 73 0 - 149 mg/dL [facility] HDL Cholesterol 79 >39 mg/dL [facility] VLDL Cholesterol Rik 13 5 - 40 mg/dL [facility] LDL Calculated 110(H) 0 - 99 mg/dL [facility] Blood 11/22/2024 11:4 6 AM EDT 11/22/2024 Narrative [facility] - 11/23/2024 11:07 AM EDT Performed at: [address] [id number] Facilities Clerk: Danyel Fierro PhD, Phone: [phone] Stacy Valerio MD LAB BLOOD ORDERABLES Final Result [facility] from Last 3 Months or Most Recently Relevant to Health Maintenance Insurance BLUE CROSS/BLUE SHIELD Care Teams Citrus Peeler Relationship Specialty Start Date End Date Stacy Valerio MD [address] [facility] [address] [place] [address] PCP - General Internal Medicine/Pediatrics 05/06/22 Natalie Coats, INTERPERSONAL COMMUNICATIONS PROFESSOR [address] [facility] [address] [place], [place] [id number] Neurology 11/30/23 Zehra Rey MD [address] [facility] [address] [place], [place] [id number] Interventional Cardiology 11/30/23
--- OUTSIDE RECORDS SUMMARY | 2025-07-24 10:08 | XMS_ITS | Clinical Summary ---
Author Organization [facility] Address [address] [place] [address] Care Team Providers Care Manager Inventory Management Name Role Phone No Pcp, [facility] Primary Care Provider Unavailabl e Source Comments [facility] is fully rolled out with thefollowing exceptions:General Clinical Research [facility] Social History Tobacco Use Types Packs/Day Years Used Date Smoking Tobacco: Never Assessed Comments Unknown Sex and Gender Information Value Date Recorded Sex Assigned at Not on file Legal Sex Female 1:37 PM EDT Gender Identity Not on file Sexual Orientation Not on file Plan of Treatment Health Maintenance Due Date Last Done Comments MMR IMMUNIZATION (1 of 1 - S tandard series) 1974 DTAP/Tdap/Td IMMUNIZATION (1 - Tdap) 1980 Yearly Physical Ages 3-18+ 1984 VARICELLA IMMUNIZATION (1 of 2 - 13+ 2-dose series) 1986 HEPATITIS B IMMUNIZATION (1 of 3 - 19+ 3-dose series) 1992 AMB SEASONAL FLU VACCINE (#1) 04/09/2025 COVID-19 Vaccine ( - 2024-2 6 season) 2025 HIB IMMUNIZATION Aged Out No longer e ligible based on patient's age to complete this topic HPV IMMUNIZATION Aged Out No longer e ligible based on patient's age to complete this topic IPV IMMUNIZATION Aged Out No longer e ligible based on patient's age to complete this topic MCV4 IMMUNIZATION Aged Out No longer eligible based on patient's age to complete this topic MENINGOCOCCAL B VACCINE Aged Out No l onger eligible based on patient's age to complete this topic Respiratory Syncytial Virus (RSV) <20mo Aged Out No longer eligible b ased on patient's age to complete this topic Care Teams Manager Inventory Management Relationship Specialty Start Date End Date No Pcp, [facility] PCP - General 04/24/19
--- OUTSIDE RECORDS SUMMARY | 2025-07-24 10:08 | XMS_ITS | Referral Summary ---
Author Organization [employer] ([place], [place], [place], [place], [place]) Address [address] [place] [address] Care Team Providers Care Certified Hand Therapist Name Role Phone Stacy Valerio MD Primary Care Provider [phone] Natalie Coats DUCT LAYER SUPERVISOR Unavailable [phone] Zehra Rey MD Unavailable [phone] Encounters Date Type Department Care Team Description 06/18/2025 Travel 06/18/2025 10:30 AM EST Procedure Visit [facility] Neurology - [facility] [address] [place] [address] Natalie Coats, GABRIELLE Intractable chronic migraine without aura and without status migrainosus (Primary Dx) 05/02/2025 2:57 PM EDT - 05/02/2025 11:59 PM EDT Hospital Encounter [facility] Breast Imaging [address] [facility] [address] [place] [address] Stacy Valerio MD Visit for screening mammogram Discharge Disposition: Home or Self Care from Last 3 Months Allergies Active Allergy Reactions Criticality Noted Date [...] 50 mcg/actuation nasal spray 2 sprays daily. Active Ubrelvy 100 mg tabIndications: Migraine without status migrainosus, not intractable, unspecified migraine type Take 1 tablet by mouth 2 (two) times daily as needed (Migraine). 16 tablet 11 2025 Active topiramate (TOPAMAX) 100 MG tabletIndicatio ns:Migraine without status migrainosus, not intractable, unspecified migraine type Take 1 tablet (100 mg total) by mouth nightly. 90 tablet 3 2025 Active promethazine (PHENERGAN) 12.5 MG tabletIndicatio ns:Nausea and vomiting, unspecified vomiting type Take 1 tablet (12.5 mg total) by mouth every 8 (eight) hours as needed for nausea. 20 tablet 3 2025 Active Ajovy Autoinjector 225 mg/1.5 mL AtInIndications :Migraine without status migrainosus, not intractable, unspecified migraine type Inject 225 mg under the skin every 30 (thirty) days for 356 days. 4.5 mL 2025 Active tiZANidine (ZANAFLEX) 4 MG tabletIndicatio ns:Neck muscle spasm Take 1/2 to 1 tablet PO at bedtime PRN. 30 tablet 5 Active nebivoloL (BYSTOLIC) 5 MG tabletIndicatio ns:Hypertension , unspecified type TAKE 1 TABLET DAILY 90 tablet 3 Active Xopenex HFA 45 mcg/actuation inhaler 2 puffs. Active Lyllana 0.075 mg/24 hr patch 1 [...] Date Diagnosed Date Hypertension, unspecified type 11/03/2022 Immunizations Immunization Administration Dates Next Due COVID-19 2022- PFIZER (COM IRNATY) 12 YRS + ([id number]) 10/02/2021 Covid-19 Vaccine MRNA (PF) 1 8yr+ (Moderna)([id number]) 10/03/2021,04/16/2021,09/27/2020,2020 Influenza Four-QIV 6MO+ PF I M ([id number]) 05/08/2022 Influenza Four-qiv Pf 05/29/2020,04/27/2015 Influenza Quad-qiv Non Pf 06/12/2019 Influenza Three-tiv Non-pf 05/08/2022 Influenza, Unspecified 05/12/2017 Pneumococcal, Nos 05/12/2017 Tdap 02/22/2021 Social History Tobacco Use Types Packs/Day Years [...] Date Alexandr rded Speak language other than Japanese at home Not on file 08/20/2023 Want [...] Description 09/10/2025 10:30 AM EST Procedure Visit [facility] Neurology - [facility] [address] [facility] [address] [place] [address] Natalie Coats APRN [address] [facility] [address] [place], [place] [address] 11/27/2025 10:30 AM EDT Office Visit [facility] Primary Care [address] [facility] [address] [place] [phone] Stacy Valerio MD [address] [facility] [address] [place], [place] [id number] 05/06/2026 2:30 PM EDT Appointment [facility] Breast Imaging [address] [place] [address] [address] [place] [address] Stacy Valerio MD [address] [facility] [address] [place], [place] [id number] Procedures Procedure Name Priority Date/Time Associated Diagnosis [...] lateral to the nipple. Stacy Valerio MD IM MAMMOGRAPHY ORDERABLES Final Result * HM COLONOSCOPY (03/02/2025 10:25 AM EDT) Historical Provider HEALTH MAINTENANCE Final Result * (ABNORMAL) Lipid panel (11/22/2024 11:46 AM EDT) Cholesterol, Total 202(H) 100 - 199 mg/dL [facility] Triglycerides 73 0 - 149 mg/dL [facility] HDL Cholesterol 79 >39 mg/dL [facility] VLDL Cholesterol Rik 13 5 - 40 mg/dL [facility] LDL Calculated 110(H) 0 - 99 mg/dL [facility] Blood 11/22/2024 11:4 6 AM EDT 11/22/2024 Narrative [facility] - 11/23/2024 11:07 AM EDT Performed at: [address] [place] [id number] Silk Screen Etcher: Danyel Fierro PhD, Phone: [phone] Stacy Valerio MD LAB BLOOD ORDERABLES Final Result [facility] from Last 3 Months or Most Recently Relevant to Health Maintenance Insurance BLUE CROSS/BLUE SHIELD Care Teams Certified Hand Therapist Relationship Specialty Start Date End Date Stacy Valerio MD [address] [facility] [address] [place] [address] PCP - General Internal Medicine/Pediatrics 05/06/22 Natalie Coats, DUCT LAYER SUPERVISOR [address] [facility] [address] [place] [address] Neurology 11/30/23 Zehra Rey MD [address] [facility] [address] [place] [address] Interventional Cardiology 11/30/23
--- OUTSIDE RECORDS SUMMARY | 2025-07-24 10:08 | XMS_ITS | Data Portability ---
Author Organization ADELA CARMELITA [facility] Address [address] [place] [address] Care Team Providers Care Molecular Physicist Name Role Phone DEEPALI HOWELL Primary Care Provider [phone] DEEPALI HOWELL Referring Provider Assessment No assessment recorded. Plan of Treatment Reminders Order Date Submit Date Provider Last Modified By Organization Details Last Modified Time Details Appointments None recorded. Lab None recorded. Referral None recorded. Procedures None recorded. Surgeries None recorded. Imaging None recorded. Medication Orders promethazi ne 12.5 mg tablet 2019 020 INTERFACE [facility] [place], [address], 0 09:04:25 Ajovy Syringe 225 mg/1.5 mL subcutaneo us 2019 020 INTERFACE [facility], [address] [place], [address], 0 09:04:23 Ubrelvy 100 mg tablet 2019 020 INTERFACE [facility], [address] [place], [address], 0 09:04:29 amitriptyl ine 25 mg tablet 2017 018 david [facility], [address] [place] [address], [address], 0 08:09:51 Treximet 85 mg-500 mg tablet 2017 018 INTERFACE [facility], [address], [address], 8 10:32:22 promethazi ne 12.5 mg tablet 2017 018 INTERFACE [facility], [address], [address], 8 10:32:21 Ajovy Syringe 225 mg/1.5 mL subcutaneo us 2017 018 INTERFACE [facility], [address], [address], 8 10:32:24 Patient TargetsNo targets recorded. Patient Instructions Encounter Date Encounter Id Patient Instructions Last Modified By Organization Details Last Modified Time 07/12/2018 [id number] neck pain: care instructions [email or web address] Not available 07/12/2018 10:32:16 insomnia: care instructions Not available 07/12/2018 10:32:16 04/30/2020 [id number] neck pain: care instructions [email or web address] Not available 04/30/2020 09:04:14 insomnia: care instructions [email or web address] Not available 04/30/2020 09:04:14 Reason for Referral None Reported. 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 Procedures Surgical History Date Name Laterality Status Provider Name and Address Organization Details Recorded Time 018 Nerve Block; Occipital Nerve(s) completed ROSA ISELA ESPAÑA MD [address] [place], [address], [facility] 10/05/2017 18:55:19 017 Nerve Block; Occipital Nerve(s) completed ROSA ISELA ESPAÑA MD [address] [place], [address], [facility] 01/27/2017 11:00:29 Cholecystectomy completed [facility] 01/07/2017 10:33:35 Other completed [facility] 01/07/2017 10:33:57 Hysterectomy completed [facility] 01/07/2017 10:34:00 Tubal Ligation completed [facility] 01/07/2017 10:34:03 Other completed [facility] 01/07/2017 10:34:36 Imaging Results None recorded. Procedure Notes None recorded. Medical Equipment None Reported. Allergies Allergen ID Allergen Name Allergen Category Reaction Reaction Severity Criticality Documentation Date Start Date Code Code System Note Provider Name and Address Organization Details Recorded Time 323456 Product containin g penicilli n (product) medicatio n Not available Not available Not available 07/02/20162005 12163 8001 SNOMED Comme nt: Creat ed By: Reddy Khan eated Date: 2005 5:13: 32 PM; Not Available [facility] 6 10:13:07 Medications Name Sig Start Date [...] Astelin 137 mcg (0.1 %) nasal spray Eads 2 sprays twice a day by intranas [...] Allergy Relief 50 mcg/actua tion nasal spray,thao penon Daily 2011 active Duration : 30 days;Ronni [...] Available Not Available Not Avai lable Vitals Date Recorded Body height Body mass index (BMI) Body weight Heart rate Systolic And Diastolic Provider Name and Address Organization Details Last Updated DateTime 10/05/2017 157.48 cm 23.8 kg/m2 33167.01 g 70 /min 104/72 mm[Hg] Susana Bucio [facility] 8 15:23:02 Date Recorded Body height Body mass index (BMI) Body weight Heart rate Systolic And Diastolic Provider Name and Address Organization Details Last Updated DateTime 01/27/2017 157.48 cm 23.4 kg/m2 52928.82 g 70 /min 120/77 mm[Hg] Susana Bucio [facility] 7 10:26:55 Date Recorded Body height Body mass index (BMI) Body weight Heart rate Systolic And Diastolic Provider Name and Address Organization Details Last Updated DateTime 04/30/2020 157.48 cm 25.1 kg/m2 87670.15 g 68 /min 110/70 mm[Hg] Yue Hussein [facility] 0 08:07:44 Date Recorded Body height Body mass index (BMI) Body weight Heart rate Systolic And Diastolic Provider Name and Address Organization Details Last Updated DateTime 07/12/2018 157.48 cm 23.2 kg/m2 46689.23 g 70 /min 118/82 mm[Hg] [facility] 8 09:02:14 Social History Question Answer Notes LastModified by Organizat ion Details LastModified Time Tobacco Smoking Status Never Smoker Susana Bucio [facility] 01/07/2017 10:33:18 Live Alone Or With Others? With Others Information not available 01/07/2017 Marital Status Informat ion not available 01/07/2017 What Was [...] available 01/07/2017 10:33:08 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 Condition Response Emphysema N Depression Y COPD N Arthritis Y Acid Reflux (GERD) Y Cancer Y Migraines Y Bleeding Disorder N Asthma Y Diabetes N Heart Disease N Hypertension Y Gynecological HistoryNo gynecological history recorded. Obstetrics History GPAL:G 0 P 0 0 0 0 Past Encounters Encounter ID Performer Location Encounter Start Date Encounter Closed Date Diagnosis/Indication Diagnosis SNOMED-CT Code Diagnosis ICD10 Code Diagnosis IMO Codes Diagnosis Note [id number] ROSA ISELA ESPAÑA MD NEUROLOGY [facility] [address] [address] [place] [address] 01/07/2017 15:20:15 01/07/2017 16:19:44 Neck pain 13271495 M54.2 Continue Deep Blue or Past Tense, massage, range of motion exercises. Migraine without aura 56 418019 G43.009 41 year-old left-jazzmine d woman with common migraine, cervicalgi a, sinus problems. She has excellent response to nerve blocks, resolution of migraines from 09/2015 until 10/2016. LP negative for OCP or abnormal cell. Vertigo, highly suggestive of BPPV with residual labyrhyint hitis, resolved with vestibular therapy. - resume amitriptyl ine 25 mg qhs - Continue nerve blocks PRN - Phenergan +/- Treximet at onset migraine - Sinus regimen: continue Flonase, Tracee and recommend NeilMed Sinus Rinse prn - RTC 1 yr fup or sooner PRN Insomnia 449615582 G47.0 0 - Restart back on amitriptyl ine 25 mg nightly -- Stop melatonin while on the amitriptyl ine [id number] SD OWENS MD RHEUMATOL OGY SB [address] [place] [address] 01/14/2017 08:47:12 01/14/2017 10:51:15 Anti-nuclear factor detected 740448898 R76.8 she has a low positive ARLEY 1:80 . Rest of the ARLEY subtypes are normal. The SCL -70 abs is at 1.0 which is clinically insignific ant.ESR/CR P are normal.RA/ ANTI CCP abs are negative.C BC/CMP are normal. She does not have any clinical features to suggest an autoimmune disease process.In particular , no features of Lupus, Scleroderm a, or Mixed CTD process noted.Has a normal MSK examinatio n, without any effusions, synovitis and normal ROM.Streng th is also normal.Ski n exam is without any acute findings with normal nail fold capillary exam. I reassured her about the absence of autoimmune disease process. The marginal positive ARLEY/SCL abs is likely false positive and I do not see need for further evaluation . Primary fi bromyalgia syndrome 24410651 M79.7 Her aches, pains, fatigue, poor non restorativ e sleep along with brain fog, raises concerns about likely Fibromyalg ia syndrome.S he is educated about this condition. Encouraged good sleep hygeine and I fully agree with amitriptyl ine at night.She will look into swimming and maintain her Karate classes.Ca n RTC as needed. [id number] ROSA ISELA ESPAÑA MD NEUROLOGY [facility] [address] [place] [address] 01/27/2017 09:52:53 01/27/2017 11:01:52 Muscle pain 94945465 M79.1 Performed TPI's in traps, CPS and R rhomboidPt tolerated injections wellCCMM Refractory migraine without aura 606395772 G43.019 Performed b/l G/L/TONBsP t tolerated injections wellCCMM [id number] ROSA ISELA ESPAÑA MD NEUROLOGY [facility] [address] [place] [address] 10/05/2017 15:17:21 10/05/2017 15:52:57 Muscle pain 94115067 M79.1 Performed TPI's in traps, CPS and R rhomboidPt tolerated injections wellCCMM Refractory migraine without aura 981343300 G43.019 Performed bilateral greater, lesser and third occipital nerve blocksPt tolerated injections [facility] [id number] ROSA ISELA ESPAÑA MD NEUROLOGY [facility] [address] [place] [address] 07/12/2018 08:31:16 07/12/2018 10:39:23 Migraine without aura 21341518 G43.009 43 year-old left-jazzmine d woman with common migraine, cervicalgi a, sinus problems. She has excellent response to nerve blocks, resolution of migraines from 09/2015 until 10/2016, but now insurance no longer covering nerve blocks. She has been having insomnia improved with recent increase in amitriptyl ine. She was dx with Dr. Owens last summer 2016 with fibromyalg ia. LP negative for OCP or abnormal cell. Vertigo, highly suggestive of BPPV with residual labyrhyint hitis, resolved with vestibular therapy. - increased dose amitriptyl ine 50 mg qhs (increased 06/2018)- Trial of Ajovy- Phenergan +/- Treximet at onset migraine- Sinus regimen: now on allergy shots since August 2017; ; continue allergy shots, Flonase, Astelin, Xyzal, Singulair and again recommend PRN NeilMed Sinus Rinse- RTC 1 yr fup or sooner PRN Neck pain 55907765 M54.2 Continue Deep Blue or Past Tense, massage, range of motion exercises. Insomnia 284711875 G47.0 0 - Restart back on amitriptyl ine 25 mg nightly -- Stop melatonin while on the amitriptyl ine Fibromyalgia 211659467 M 79.7 encouraged regular exercise, swimming, doing karate, uses Deep Blue, massage; no depression but some low mood, sleep helps RTC 6 months [id number] ROSA ISELA ESPAÑA MD NEUROLOGY [facility] [address] [place] [address] 04/30/2020 07:46:35 04/30/2020 09:06:06 Migraine without aura 45848257 G43.009 43 year-old left-jazzmine d woman with common migraine, cervicalgi a, sinus problems. She has excellent response to nerve blocks, resolution of migraines from 09/2015 until 10/2016, but now insurance no longer covering nerve blocks. She has been having insomnia improved with recent increase in amitriptyl ine. She was dx with Dr. Owens last summer 2016 with fibromyalg ia. Now followed by Dr. Whitt, dx of an undifferen tiated connective tissue disorder, on Plaquenil and amitriptyl ine 50 mg. I also wonder if she may have Mast Cell Activation Syndrome (MCAS). LP negative for OCP or abnormal cell. Vertigo, highly suggestive of BPPV with residual labyrhyint hitis, resolved with vestibular therapy. - now on amitriptyl ine 50 mg qhs for fibromyagl ia per her rheumatolo gist Dr. Whitt- Will continue Ajovy- Trial of Ubrelvy (SEs of Treximet) +/- Phenergan 12.5 mg- Sinus regimen: now on allergy shots since August 2017; ; continue allergy shots, Flonase, Astelin, Xyzal, Singulair and again recommend PRN NeilMed Sinus Rinse- I've also recommende d she discuss possible dx of Mast Cell Activation Syndrome with her rheumatolo gist; she is on most tx used for this syndrome, but may consider omalizumab or possibly Gleevec- RTC 1 yr fup or sooner PRN Neck pain 08354729 M54.2 Continue peppermint oil, Deep Blue or Past Tense, massage, range of motion exercises. Insomnia 948671743 G47.0 0 Sleeping better since on higher dose of amitriptyl ine. -- Stop melatonin while on the amitriptyl ine Fibromyalgia 277726090 M 79.7 encouraged regular exercise, swimming, doing karate, uses Deep Blue, massage; no depression but some low mood, sleep helps RTC 6 months [id number] LEAH URBANO PA-C [facility] [address] [place] [address] 05/22/2025 12:44:13 05/22/2025 15:00:46 Multiple benign melanocytic nevi 064499688 D22.5 I78.1 L82.1 L81.4 Benign appearing lesions [...] by Organization Details LastModified Time None Recorded Advance Directives Directive None Recorded Payers Insurance Date Sequence Insurance Name Policy Number Policy Nunez Covered Member ID Nunez Member ID Guarantor Name 05/28/2025 1 [place] [id number] Ugo Hein [id number] Shaila Hein Notes Date Note Type Note Provider Name and Address Organization Details Recorded Time 10/05/2017 text/html She had been doing well since her last nerve blocks until the past couple of weeks with increaseing headaches and migraines. She is not sure if it's the weather triggering them, but they are not going away with her medications. She went for a massage and instead of helping it triggered a migraine. The occipital nerve blocks and trigger point injections have always worked well to get her out of cycles of migraines. She presents today for nerve blocks. Still taking amitriptyline. ROSA ISELA ESPAÑA MD [address] [place] [address], [address], [facility] 10/05/2017 19:07:08 07/12/2018 text/html f/u migraines She is still having migraines about 3-4 times per month, lasting most of the day. About a month ago she increased amitriptyline to 50 mg because of difficulty with sleeping. She is not sure if she has had decreased migraines, but she does notice that sleep is important to control migraines. 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 It's a good switch but a little more stress with the change. Neck pain is a little better. She uses DoTerra Deep Blue a lot and it helps. The last time she had a massage it sent her over the edge into a migraine. This has never happened before. She uses phenergan and this works the quickest, tries it first. If the migraine continues she uses Treximet. She last had nerve blocks in September and they worked great. She is worried about her insurance not covering them anymore in case she has the severe and more frequent migraines that she can't get out of. She is now on allergy shots, 2 nose sprays and 2 allergy pills daily. She uses NMSR from time to time. Vertigo is better. She did have a little bit with a recent ear infection that resolved once treated. But she notes that the vestibular rehab helps a lot. She still does PRN exercises, hasn't needed them in a while. She does a lot of roles and jumps in karate. 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 She had knee surgery in Apr to clean it out. Better. 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 She has overall been doing pretty well. Now starting back with sinus/allergy problems, especially with ragweed. She does allergy shots. The sinuses are a trigger so she has had more headaches/migraines over the past couple weeks. She thinks the Ajovy is helping quite a bit. She estimates 1-2 migraines per month on average. She is also still on amitriptyline. Phenergan 12.5 mg usually takes care of migraine, at times has to take Treximet which helps if she has to, but only 2-3 times per year because of SE -- she feels out of it. Phenergan makes her drowsy so she usually has to take it later in the day or has to take a nap. Amitriptyline dose was increased to 50 mg [address] 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 She is also on Plaquenil and Xyzal. She flushes easily. She gets itchy hives. She has some wheezing, on Asthma medications (2 inhalers per day). She often has tachycardia. She used to suffer with GI cramping and diarrhea, not sure why no longer, but now dealing more with constipation. She is on Bystolic to keep heart rate down. Sleep is better, but still takes melatonin now and then. ROSA ISELA ESPAÑA MD [address] [place], [address], [facility] 04/30/2020 09:04:25 05/22/2025 text/html Here for a full body skin examination - last skin check: 01/07/2023- no history of skin cancer- spots of concern today: R breast, back LEAH LONDON URBANO PA-C [address] [place], [address], [facility] 05/24/2025 08:03:44 OBGyn Episode No OBEpisode recorded.
--- OUTSIDE RECORDS SUMMARY | 2025-07-24 10:08 | XMS_ITS | Clinical Summary ---
Author Organization Healthcare Address [address] [place] [address] Care Team Providers Care Archives Director Name Role Phone Stephanie Dorsey APRN Primary Care Provider [phone] Immunizations Immunization Administration Dates Next Due Influenza, Unspecified 05/12/2017 Pneumococcal, Unspecified 05/12/2017 Family History 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 Relation Name Comments Sinusitis Daughter Hypertension Other 1 Other cancer Other 2 Rheum arthritis Other 3 Hyperlipidemia Other 4 Relation Name Status Comments Daughter Other 1 Other 2 Other 3 Other 4 Social History Tobacco Use Types Packs/Day Years Used Date Smoking Tobacco: Never Alcohol Use Standard Drinks/Week Comments Yes 0 (1 standard drink = 0.6 oz pur e alcohol) Comments Unknown Sex and Gender Information Value Date Recorded Sex Assigned at Not on file Legal Sex Female 7:52 PM EDT Gender Identity Not on file Sexual Orientation Not on file Last Filed Vital Signs Vital Sign Reading Time Taken Comments Blood Pressure 120/78 12/16/2017 10:27 AM EDT Pulse 90 12/16/2017 10:27 AM EDT Temperature 37.3 C (99.2 F) 12/16/2017 10:27 AM EDT Respiratory Rate 18 12/16/2017 10:27 AM EDT Oxygen Saturation - - Inhaled Oxygen Concentration - - Weight 55.3 kg (122 lb) 12/16/2017 10:27 AM EDT Height 157.5 cm (5' 2 ) 12/16/2017 10:27 AM EDT Body Mass Index 22.31 12/16/2017 10:27 AM EDT Plan of Treatment Not on file Care Teams Archives Director Relationship Specialty Start Date End Date Stephanie Dorsey APRN [address] [place] [address] PCP - General 12/20/20
--- OUTSIDE RECORDS SUMMARY | 2025-07-24 10:08 | XMS_ITS | Encounter Summary ---
Author Organization [facility] ([place], [place], [place], [place], [place]) Address [address] [place] [address] Care Team Providers Care Junior Software Developer Name Role Phone Stacy Valerio MD Primary Care Provider [phone] Natalie Coats APRN Unavailable [phone] Zehra Rey MD Unavailable [phone] Encounter Details Date Type Department Care Team (Latest Contact Info) Description 06/18/2025 Travel Social History Tobacco Use Types Packs/Day Years Used Date Smoking Tobacco: Never Smokeless Tobacco: Never Alcohol Use Standard Drinks/Week Comments Yes 2 [...] Date Alexandr rded Speak language other than Tongan at home Not on file 08/20/2023 Want [...] AM CDT documented as of this encounter Plan of Treatment Upcoming Encounters Date Type Department Care Team (Late st Contact Info) Description 09/10/2025 10:30 AM EST Procedure Visit [facility] - [facility] [address] [facility] [address] [place] [address] Natalie Coats, MOLDED RUBBER GOODS CUTTER [address] [facility] [address] [place] [address] 11/27/2025 10:30 AM EDT Office Visit [facility] [address] [place] [address] Stacy Valerio MD [address] [place], [place] [id number] 05/06/2026 2:30 PM EDT Appointment [facility] Breast Imaging [address] [facility] [address] [place] [address] Stacy Valerio MD [address] [facility] [address] [place] [address] documented as of this encounter Visit Diagnoses Not on filedocumented in this encounter Care Teams Junior Software Developer Relationship Specialty Start Date End Date Stacy Valerio MD [address] [facility] [address] [place] [address] PCP - General Internal Medicine/Pediatrics 05/06/22 Natalie Coats, MOLDED RUBBER GOODS CUTTER [facility] [address] [place] [address] Neurology 11/30/23 Zehra Rey MD [address] [facility] [address] [place] [address] Interventional Cardiology 11/30/23 documented as of this encounter
--- OUTSIDE RECORDS SUMMARY | 2025-07-24 10:08 | XMS_ITS | Encounter Summary ---
Author Organization [employer] ([place], [place], [place], [place], [place]) Address [address] [place] [address] Care Team Providers Care Oil Well Cable Tool Operator Name Role Phone Stacy Valerio MD Primary Care Provider [phone] Natalie Coats KELP GATHERER Unavailable Zehra Rey MD Unavailable [phone] Reason for Visit * Reason Onset Date Comments Ajovy Questions 10/12/2022 Encounter Details Date Type Department Care Team (Late st Contact Info) Description 10/12/2022 Telephone [facility] Neurology - [facility] [address] [place] [address] [address] [place] [address] Natalie Coats, KELP GATHERER [address] [facility] [address] [place] [address] Ajovy Questions Social History Tobacco Use Types Packs/Day Years Used Date Smoking Tobacco: Never Assessed Comments No Sex and Gender Information Value Date Recorded Sex Assigned at Female 05/02/2025 10:31 AM CDT Legal Sex Female 1:09 PM CDT Gender Identity Female 05/02/2025 10:31 AM CDT Sexual Orientation Straight 05/02/2025 10 :31 AM CDT documented as of this encounter Miscellaneous Notes * Telephone Encounter - Braden Arellano - 10/12/2022 1:32 PM EST Patient states she only received a 1 month supply from her pharmacy. But was charged for a 3 month supply. She has questions about the prescription. Please advise. E DEVELOPER documented in this encounter Plan of Treatment Upcoming Encounters Date Type Department Care Team (Late st Contact Info) Description 09/10/2025 10:30 AM EST Procedure Visit [facility] Neurology - [facility] [address] [facility] [address] [address] [place] [address] Natalie Coats, KELP GATHERER [address] [facility] [address] [place] [address] 11/27/2025 10:30 AM EDT Office Visit [facility] Primary Care [address] [facility] [address] [place] [address] Stcay aVlerio MD [address] [facility] [address] [place] [address] 05/06/2026 2:30 PM EDT Appointment [facility] Breast Imaging [address] [facility] [address] [place] [address] Stacy Valerio MD [address] [facility] [address] [place] [address] documented as of this encounter Visit Diagnoses Not on filedocumented in this encounter Care Teams Oil Well Cable Tool Operator Relationship Specialty Start Date End Date Stacy Valerio MD [address] [facility] [address] [place] [address] PCP - General Internal Medicine/Pediatrics 05/06/22 Natalie Coats, KELP GATHERER [address] [facility] [address] [place] [address] Neurology 11/30/23 Zehra Rey MD [address] [facility] [address] [place] [address] Interventional Cardiology 11/30/23 documented as of this encounter
--- OUTSIDE RECORDS SUMMARY | 2025-07-24 10:08 | XMS_ITS | Clinical Summary ---
Author Organization [facility] Address [address] [place] [address] Phone Care Team Providers Care Inside Finisher Name Role Phone Unavailable Primary Care Provider Unavailabl e Allergies Active Allergy Reactions Criticality Noted Date Comments Codeine Other (See Comments) 03/31/2022 Hallucinations Hydrocodone Itching 01/12/2021 Penicillins Rash 07/25/2024 Medications lipase/protease/a mylase (PANCRELIPASE ORAL) Take 2 Tablets by mouth 3 times daily (with meals). Active tiZANidine (ZANAFLEX) 4 mg Oral Tablet Take 4 mg by mouth nightly. Active levocetirizine (XYZAL) 5 mg Oral Tablet Take 5 mg by mouth daily. Active SINGULAIR 10 mg Oral Tablet Take 10 mg by mouth nightly. 1 Active nebivoloL (BYSTOLIC) 10 mg Oral Tablet Take 10 mg by mouth daily. 1 Active Pantoprazole [address] for susp in Packet Take 40 mg by mouth 2 times daily. 1 Active topiramate (TOPAMAX) 100 mg Oral Tablet Take 100 mg by mouth nightly. Active fluticasone propionate (FLONASE) 50 mcg/actuation Nasl Pike, Suspension 1 Pike by Nasal route daily. Active TRELEGY ELLIPTA 200-62.5-25 mcg Inhl Disk with Device Inhale 1 Puff into the lungs daily. 4 Active albuterol sulfate 90 mcg/actuation Inhl Aerosol Powdr Breath Activated Inhale 1 Puff into the lungs as needed. Active GREGORIA 0.05 mg/24 [address] TD Patch Semiweekly Place 1 Patch onto the skin two times a week. Active AJOVY AUTOINJECTOR 225 mg/1.5 mL SubQ Auto-Injector Inject 1.5 mL as directed every 30 days. Active promethazine (PHENERGAN) 12.5 mg Oral Tablet Take 12.5 mg by mouth every 8 hours as needed. for nausea Active UBRELVY 100 mg Oral Tablet Take 1 Tablet by mouth as needed. 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 Transaminitis 07/25/2024 Social History Tobacco Use Types Packs/Day Years Used Date Smoking Tobacco: Never Assessed Comments Unknown Sex and Gender Information Value Date Recorded Sex Assigned at Not on file Legal Sex Female 11:52 AM EDT Gender Identity Not on file Sexual Orientation Not on file Last Filed Vital Signs Vital Sign Reading Time Taken Comments Blood Pressure 120/80 10/18/2024 2:59 PM EDT Pulse 74 10/18/2024 2:59 PM EDT Temperature 36.5 C (97.7 F) 10/18/2024 2:59 PM EDT Respiratory Rate 18 10/18/2024 2:59 PM EDT Oxygen Saturation 100% 10/18/2024 2:59 PM EDT Inhaled Oxygen Concentration - - Weight - - Height 157.5 cm (5' 2 ) 10/18/2024 2:59 PM EDT Body Mass Index - - Plan of Treatment Health Maintenance Due Date Last Done Comments Annual Wellness Exam 1976 Hepatitis B Vaccine (1 of 3 - 19+ 3-dose series) 1992 Cervical Cancer Screening 1994 Pap Smear 1994 HPV/Pap Cotest 2003 Cologuard 2018 Colon Cancer Screening 2018 Colonoscopy 2018 FIT 2018 Sigmoidoscopy 2018 Virtual Colonography 2018 Pneumococcal Vaccine 50+ (1 of 1 - PCV) 2023 Zoster (1 of 2) 2023 COVID-19 Vaccine (5 - 2025-26 season) 2025 10/03/2021, 10/02/2021, 04/16/2021, Additional history exists Influenza Vaccine (#1) 2025 , 08/26/2023, 05/08/2022, Additional history exists Breast Cancer Screening 04/04/2026 04/04/20, 04/04/2024, 01/06/2023, Additional history exists DTaP/TDaP/Td (3 - Td or Tdap) 06/21/2034 06/21/2024, 02/22/2021 Meningococcal B Vaccine Aged Out No l onger eligible based on patient's age to complete this topic Insurance YISSEL PPO AN[employer]KATEY PPO
== END 2025-07-22 23:59 | disposition home or self-care (01) ==
LOC: LAB.DROPOF 07-24 09:45
PROVIDERS: PCP Internal Medicine; Visit Provider Student in an Organized Health Care Education/Training Program
DX: J06.9 Acute upper respiratory infection, unspecified (principal)
CPT/HCPCS: 87631; 87636

== ENCOUNTER 2025-08-07 17:53 | Emergency (ER) | payer BC, OTHER, SELFPAY ==
--- OUTSIDE RECORDS SUMMARY | 2025-06-18 10:30 | XMS_ITS | Encounter Summary ---
Author Organization [employer] ([place], [place], [place], [place], [place]) Address [address] [place] [address] Care Team Providers Care Equal Opportunity Director Name Role Phone Stacy Valerio MD Primary Care Provider [phone] Natalie Coats APRN Unavailable [phone] Zehra Rey MD Unavailable [phone] Reason for Visit * Reason Comments Migraine Botulinum Toxin Injection * Clinic Procedure (Routine) - Closed Specialty Diagnoses / Procedures Referred By Contalicia t Referred To Contact Neurology Diagnoses Intractable chronic migraine without aura and without status migrainosus Botox FERNANDEZ 200 Units [place] [employer] Exp: 06/26/25 Natalie Coats APRN [address] [place] [address] [address] [place] [address] Phone: tel: fax: Natalie Coats APRN [address] [place] [address] [address] [place] [address] Phone: tel: fax: Referral ID Status Reason Start Date Expiration Date Visits Re quested Visits Authorized [id number] Closed 06/26/2024 06/26/2025 5 5 Encounter Details Date Type Department Care Team (Latest Contact Info) Description 06/18/2025 10:30 AM EST Procedure Visit [facility] Neurology - [facility] [address] [place] [address] Natalie Coats APRN [address] [facility] [address] [place] [address] Intractable chronic migraine without aura and without status migrainosus (Primary Dx) Social History Tobacco Use Types Packs/Day Years Used Date Smoking Tobacco: Never Smokeless Tobacco: Never Tobacco Cessation:Counseling Given: Not Answered Alcohol Use Standard Drinks/Week Comments Yes 2 (1 standard drink = 0.6 oz pur e alcohol) Overall Financial Resource Strain (CARDIA) Answe r Date Recorded How hard is it for you to pa y for the very basics like food, housing, medical care, and heating? Not hard at all 03/01/2024 Hunger Vital Sign Answer Date Recorded Within the past 12 months, y ou worried that your food would run out before you got the money to buy more. Never true 03/01/20 24 Within the past 12 months, t he food you bought just didn't last and you didn't have money to get more. Never true 03/01/2024 PRAPARE - Transportation Answer Date Re corded In the past 12 months, has l ack of transportation kept you from medical appointments or from getting medications? No 02/07 In the past 12 months, has l ack of transportation kept you from meetings, work, or from getting things needed for daily living? No 03/01/2024 Housing Stability Vital Sign Answer Hunter e Recorded In the last 12 months, was t here a time when you were not able to pay the mortgage or rent on time? No 03/01/2024 Number of Times Moved in the Last Year Not on fi le 03/01/2024 Homeless in the Last Year Not on file 2023 Transportation Needs Answer Date Record ed Transportation unreliable past 12 months Not on file 03/01/2024 Family and Community Support Answer Hunter e Recorded Help with Day to Day Activities Not on file 08/20/2023 Feeling Lonely or Isolated Not on file 08/20 Educational Attainment Answer Date Alexandr rded Speak language other than Ivorian at home Not on file 08/20/2023 Want help with school or training Not on file 08/20/2023 Substance Use Answer Date Recorded Used prescription meds for non-medical reasons N ot on file 08/20/2023 Used illegal drugs past 12 months Not on file 08/20/2023 Comments No Sex and Gender Information Value Date Recorded Sex Assigned at Female 05/02/2025 10:31 AM CDT Legal Sex Female 1:09 PM CDT Gender Identity Female 05/02/2025 10:31 AM CDT Sexual Orientation Straight 05/02/2025 10 :31 AM CDT documented as of this encounter Last Filed Vital Signs Vital Sign Reading Time Taken Comments Blood Pressure - - Pulse - - Temperature - - Respiratory Rate - - Oxygen Saturation - - Inhaled Oxygen Concentration - - Weight 57.6 kg (127 lb) 06/18/2025 10:42 AM EST Height 157.5 cm (5' 2 ) 06/18/2025 10:42 AM EST Body Mass Index 23.23 06/18/2025 10:42 AM EST documented in this encounter Functional Status * Height Answer Date of Assessment Author 62 06/18/2025 10:42 AM Nikky Cordova CMA * Weight Answer Date of Assessment Author 203106/18/2025 10:42 AM Nikky Cordova CMA * Tidal Volume Answer Date of Assessment Author 300 06/18/2025 10:42 AM Nikky Cordova CMA * BMI (Calculated) Answer Date of Assessment Author 23.2 06/18/2025 10:42 AM Nikky Cordova CMA * BMI (Calculated) Answer Date of Assessment Author 23.2 06/18/2025 10:42 AM Nikky Cordova CMA documented as of this encounter Mental Status * Height Answer Entry Date Author 62 06/18/2025 10:42 AM Nikky Cordova CMA * Weight Answer Entry Date Author 203106/18/2025 10:42 AM Nikky Cordova CMA * Tidal Volume Answer Entry Date Author 300 06/18/2025 10:42 AM Nikky Cordova CMA * BMI (Calculated) Answer Entry Date Author 23.2 06/18/2025 10:42 AM Nikky Cordova CMA documented in this encounter Progress Notes * Natalie Coats APRN - 06/18/2025 10:30 AM EST Head/Face/Jaw Botulinum Injection Date/Time: 06/18/25 Performed by: Natalie Coats APRN Authorized by: Natalie Coats APRN Consent: Consent obtained: Written Consent given by: Patient Procedure details: Toxin (Brand): OnaBoNT-A (Botox) Comments about vials and dilution: Buy and Bill Total units available: 200 Right frontalis: 10 units divided amongst site(s) Left frontalis: 10 units divided amongst site(s) Right talkback host: 5 units divided amongst site(s) Left talkback host: 5 units divided amongst site(s) Procerus (midline): 10 units divided amongst site(s) Right occipitalis: 15 units divided amongst site(s) Left occipitalis: 15 units divided amongst site(s) Right cervical paraspinal: 15 units divided amongst site(s) Left cervical paraspinal: 15 units divided amongst site(s) Right trapezius: 30 units divided amongst site(s) Left trapezius: 30 units divided amongst site(s) Right temporalis: 20 units divided amongst site(s) Left temporalis: 20 units divided amongst site(s) Total units injected: 200 Total units wasted: 0 Post-procedure details: Patient tolerance of procedure: Tolerated well, no immediate complications Comments: Ms. Hein reports 10 headache days per month lasting 2-3 hours. Had 15+ headache days per month prior to starting Botox. Has noticed a decrease in the intensity/severity of her migraines. No recent ER visits for migraine. Continues Ajovy, Topiramate, PRN Ubrelvy/promethazine. Return in 12 weeks. RANCE FOLLOW UP SPECIALIST documented in this encounter Plan of Treatment Upcoming Encounters Date Type Department Care Team (Late st Contact Info) Description 08/08/2025 8:45 AM EST Office Visit [facility] Primary Care [address] [place] [address] Ruthann Glover MD [address] [place] [address] 09/10/2025 10:30 AM EST Procedure Visit [facility] Neurology - [facility] [address] [place] [address] Natalie Coats, CATALOGUE LIBRARIAN [address] [facility] [address] [place] [address] 11/27/2025 10:30 AM EDT Office Visit [facility] [address] [facility] [address] [place] [address] Stacy Valerio MD [address] [facility] [address] [place] [address] 05/06/2026 2:[address] [facility] Breast Imaging [address] [place] [address] Stacy Valerio MD [address] [facility] [address] [place] [address] documented as of this encounter Visit Diagnoses Diagnosis Intractable chronic migraine without aura and without status migrainosus- Primary documented in this encounter Administered Medications Inactive Administered Medications - up to 3 most recent administrations Medication Order MAR Action Action Date Dose Rate Site botulinum toxin type A (BOTOX) injection 200 Units 200 Units Once, intraMUSCULAR, On Wed06/18/25 at 1130, For 1 doseIndications:Intractable chronic migraine without aura and without status migrainosus Given 06/18/2025 11:07 AM EST 200 Units O[place] r documented in this encounter Care Teams Equal Opportunity Director Relationship Specialty Start Date End Date Stacy Valerio MD [address] [facility] [address] [place] [address] PCP - General Internal Medicine/Pediatrics 05/06/22 Natalie Coats, CATALOGUE LIBRARIAN [address] [facility] [address] [place] [address] Neurology 11/30/23 [place] [address] [place] [address] [address] [place] [address] Interventional Cardiology 11/30/23 documented as of this encounter
--- NOTE | 2025-08-07 17:59 | ECG_ITS ---
APPROVED REPORT Exam: Resting ECG HR:89 bpm ECG Measurements Heart Rate 89 AXES KS 141 P 51 QRSd 88 QRS 65 QT 349 T 53 QTc 396 Conclusion SINUS RHYTHM POSSIBLE LEFT ATRIAL ENLARGEMENT [-0.1mV P-WAVE IN V1/V2] POSSIBLE RIGHT VENTRICULAR CONDUCTION DELAY [RSR (QR) IN V1/V2] MINIMAL ST DEPRESSION [0.025+ mV ST DEPRESSION] BORDERLINE ECG WARNING: DATA QUALITY MAY AFFECT INTERPRETATION UNCONFIRMED REPORT Electronically signed by : Kirk Bryan, 08/07/2025 23:25:52
[2025-08-07 18:04] VITALS: BP 121/83; PULSE 84; RESP 17; O2SAT 98; BMI 22.8
--- OUTSIDE RECORDS SUMMARY | 2025-08-07 18:07 | XMS_ITS | Encounter Summary ---
Author Organization [employer] ([place], [place], [place], [place], [place]) Address [address] [place] [address] Care Team Providers Care Jet Blade Polisher Name Role Phone Stacy Valerio MD Primary Care Provider [phone] Natalie Coats CLIENT SERVICES COORDINATOR Unavailable [phone] Zehra Rey MD Unavailable [phone] Reason for Visit * Reason Onset Date Comments NURSE TRIAGE 08/07/2025 Encounter Details Date Type Department Care Team (Late st Contact Info) Description 08/07/2025 Telephone [facility] Primary Care [address] [place] [address] Ruthann Glover MD [address] [place], [place] [id number] NURSE TRIAGE Social History Tobacco Use Types Packs/Day Years [...] Date Alexandr rded Speak language other than Kyrgyz at home Not on file 08/20/2023 Want [...] encounter Miscellaneous Notes * Telephone Encounter - Pearl Cotto RN - 08/07/2025 3:47 PM [place]: eyewear manufacturing tech Call- Pt sent to this evening- Cough, SOB *Please forward to appropriate provider* Patient was triaged by [facility] RN today for cough, SOB, chest tightness RN recommendation to proceed to this evening. Pt agreed and is going to contact the UC near her home Pt has appt in the morning @ [address] Hollingsworth. ED precautions given Pt verbalized understanding and agreed to recommendation Thank you, Pearl Cotto RN [facility] Spoke with pt C/O Ongoing symptoms upper respiratory symptoms that started when he came back from [facility] beginning of July was seen at urgent care and was placed on a Z-Thomas and steroids. Patient still presented with coughing and was placed on Levaquin for 10 days by her dental provider and justfinished those up today. Patient is having some shortness of breath and elevates HOB at night. Patient currently driving back from [place] will be home around 5 PM. Patient stated her albuterol inhaler was and not providing relief . She currently is taking her Trelegy Ellipta. Patient stated she is having some tightness. Currently denies fever, or dizziness RN recommendation to proceed to this evening. Pt agreed and is contact the near her home Pt has appt in the morning @ [address] Hollingsworth. ED precautions given Pt verbalized understanding and agreed to recommendation Protocol Used: Cough (Adult) Disposition for Call (Nurse Override): Go to Urgent Care Today Override Reason: Nurse judgment Override Notes: Pt on her way home from [place]. She will go to near her home this evening Protocol-Based Disposition: Go to Office Now Positive Triage Questions: * Mild difficulty breathing (e.g., minimal/no SOB at rest, SOB with walking, pulse < 100) and still present when not coughing * Wheezing is present * Severe coughing spells (e.g., whooping sound after coughing, vomiting after coughing) Negative Triage Questions: * Bluish (or evans) lips or face * Severe difficulty breathing (e.g., struggling for each breath, speaks in single words) * Rapid onset of cough and has hives * Coughing started suddenly after medicine, an allergic food or bee sting * Difficulty breathing after exposure to flames, smoke, or fumes * Sounds like a life-threatening emergency to the triager * Moderate difficulty breathing (e.g., speaks in phrases, SOB even at rest, pulse 100-120) and still present when not coughing< br /> * Chest pain present when not coughing * Passed out (e.g., fainted, lost consciousness, blacked out and was not responding) * Patient sounds very sick or weak to the triager * Coughed up > 1 tablespoon (15 ml) blood (Exception: Blood-tinged sputum.) * Fever > 103 F (39.4 C) * Fever > 101 F (38.3 C) and over 60 years of age * Fever > 100 F (37.8 C) and has diabetes mellitus or a weak immune system (e.g., HIV positive, cancer chemotherapy, organ transplant, splenectomy, chronic steroids) * Fever > 100 F (37.8 C) and bedridden (e.g., CVA, chronic illness, recovering from surgery) * Increasing ankle swelling CIATE ARTISTIC DIRECTOR * Telephone Encounter - Bot EST Antonia Berg - 08/07/2025 3:35 PM EST AI Summary: ```text ``` (Important Notice: The above summary was generated using AI. We ask readers to always verify important information as AI may not always crab picker important information from below.) FROM: Dorota Quintero TO: [place] TRIAGE [place] [[id number]] SUBJECT: Nurse Triage - Semi-Urgent - Cold/Cough/Flu/COVID PROVIDER: Ruthann Glover MD [[id number]] [facility] [[id number]] ENCOUNTER REASON FOR CALL: NURSE TRIAGE ENCOUNTER TYPE: Telephone LIST SYMPTOMS WITH SIDE AND SITE (EX: SWELLING IN THE RIGHT KNEE): Cough/congestion, soa/difficulty breathing at times DURATION YOU HAVE BEEN EXPERIENCING THE SYMPTOM: 2 weeks ongoing IS THE SYMPTOM RELIEVED BY ANYTHING (E.G., NOTHING, REST, MEDICATION)? Pt has been on steroid pack, zpack and levaquin antibiotics. Helped some but now back to symptoms MEDICATIONS TRIED? Steroids, zpack, levaquin rx SYMPTOM PREVIOUSLY DISCUSSED WITH PROVIDER? Yes LAST VISIT: 2024-11-22 NEXT VISIT: 2025-08-08 [facility] Yes MESSAGE PRIORITY: High ADDITIONAL INFORMATION: Cough/congestion soa x 2 weeks or more. Has [facility] and put on steroids and zpack but symptoms returned. Patient put on levaquin antibiotics by her dentist employer but still not better. Is out of town in [place] so scheduled for tomorrow 08-08-25 at :45am per pt request. CALLER'S NAME: Shaila Hein RELATION TO PATIENT: Self [1] PATIENT NAME: Shaila Elle Hein PREFERRED LANGUAGE: Kyrgyz BEST CALL BACK PHONE NUMBER: Home Phone: ([phone]) WHAT IS THE BEST WAY FOR THE OFFICE TO CONTACT YOU?: OK to leave message on voicemail SCRIPT OR RED FLAG USED: Cold/Cough/Flu/COVID SCRIPTING QUESTIONS/ANSWERS FROM THE WORKFLOW: (Has the patient seen one of our primary care clinicians in the last 3 years?): Yes (For patients under 3 months) --> Are they experiencing a fever of 100.4 or higher: No Are you/they a transplant or immunocompromised patient experiencing a fever of 102 or higher: No Are you/they experiencing difficulty breathing: Yes Patient Does Not Want to Hold or Transfer Unsuccessful: Send Message to [facility] RN CIATE ARTISTIC DIRECTOR documented in this encounter Plan of Treatment Upcoming Encounters Date Type Department Care Team (Late st Contact Info) Description 08/08/2025 8:45 AM EST Office Visit [facility] Primary Care [address] [place] [address] Ruthann Glover MD [address] [place] [address] 09/10/2025 10:30 AM EST Procedure Visit [facility] Neurology - [address] [place] [address] Natalie Coats, CLIENT SERVICES COORDINATOR [address] [facility] [address] [place] [address] 11/27/2025 10:30 AM EDT Office Visit [facility] Care [address] [facility] [address] [address] [place] [address] Stacy Valerio MD [address] [facility] [address] [place] [address] 05/06/2026 2:30 PM EDT Appointment [facility] Breast Imaging [address] [place] [address] Stacy Valerio MD [address] [facility] [address] [place] [address] documented as of this encounter Visit Diagnoses Not on filedocumented in this encounter Care Teams Jet Blade Polisher Relationship Specialty Start Date End Date Stacy Valerio MD [address] [place] [address] PCP - General Internal Medicine/Pediatrics 05/06/22 Natalie Coats, CLIENT SERVICES COORDINATOR [address] [facility] [address] [address] [place] [address] Neurology 11/30/23 Zehra Rey MD [address] [place], [place] [id number] Interventional Cardiology 11/30/23 documented as of this encounter
--- NOTE | 2025-08-07 18:08 | ED_ITS ---
<Statement entered by Silvana Bryan MD - 08/07/25 23:16> I was consulted by the JAMAAL, and we discussed the complexity of the problems being addressed. I approved the treatment and management plan for this patient's care in the emergency department, thus performing a substantive portion of the medical decision making. Silvana Bryan MD, DEVONTE, FACEP Discharge Plan Disposition Patient Disposition: Home, Self-Care Condition: Good Prescriptions Prescriptions: New azithromycin [Zithromax Z-Thomas] 250 mg tablet See Rx Instructions .ROUTE .COMPLEX Qty: 6 0RF Rx Instructions: For 250 mg dose pack: take 500 mg today (day 1), then 250 mg for 4 days (days 2-5) cefdinir 300 mg capsule 300 mg PO Q12H 5 Days Qty: 10 0RF No Action estradiol [Lyllana] 0.075 mg/24 hr patch semiweekly transdermal methylprednisolone 4 mg tablets,dose pack See Rx Instructions PO PER PKG DIR Qty: 21 0RF Rx Instructions: PO PER PKG DIR azithromycin [Zithromax Z-Thomas] 250 mg tablet See Rx Instructions PO .COMPLEX Qty: 6 0RF Rx Instructions: For 250 mg dose pack: take 500 mg today (day 1), then 250 mg for 4 days (days 2-5) PO guaifenesin 600 mg tablet extended release 12hr 600 mg PO Q12H PRN (Reason: congestion) Qty: 30 0RF promethazine 12.5 mg tablet 12.5 mg PO DAILYP PRN (Reason: Nausea And Vomiting) Patient Comments: TAKE 1 TABLET BY MOUTH EVERY 8 HOURS NEEDED FOR NAUSEA Creon 36,000-114,000- 180,000 unit capsule,delayed release(DR/EC) 2 cap PO ACHS Qty: 720 3RF Rx Instructions: Please take 2 capsules with meals and snacks albuterol sulfate 18 GM HFA aerosol inhaler 1 - 2 puffs inhalation Q4-6H PRN (Reason: Shortness Of Breath Or Wheezing) Qty: 1 0RF levocetirizine 5 MG tablet 5 mg PO DAILY pantoprazole 40 mg tablet,delayed release (DR/EC) 40 mg PO BID montelukast 10 mg tablet 10 mg PO PM Patient Comments: TAKE 1 TABLET IN THE EVENING nebivolol [Bystolic] 5 mg tablet 5 mg PO DAILY Trelegy Ellipta 200-62.5-25 mcg blister with device 1 ea INHALATION DAILY Patient Comments: 1 puff as directed once a day Rinse mouth Ubrelvy 100 mg tablet 100 mg PO BID PRN (Reason: .) Patient Comments: TAKE 1 TABLET BY MOUTH TWICE DAILY NEEDED tizanidine 4 mg tablet 4 mg PO HS Patient Comments: TAKE 1/2 TO 1 (ONE-HALF TO ONE) TABLET BY MOUTH AT BEDTIME NEEDED topiramate 100 mg tablet 100 mg PO HS Patient Comments: TAKE 1 TABLET BY MOUTH NIGHTLY fluticasone propionate 50 mcg/actuation spray,suspension 50 mcg INTRANASAL NEEDED PRN (Reason: CON) Ajovy Autoinjector 225 mg/1.5 mL auto-injector 225 mg SQ MONTHLY Patient Comments: INJECT 1 SYRINGE SUBCUTANEOUSLY ONCE EVERY MONTH Referrals Follow up/Referrals: Stacy Valerio MD [Primary Care Provider, Pediatrics] - See instructions Eloisa Chavarria MD [Physician, Pulmonology] - See instructions Activity Restrictions/Add. Instructions Additional Instructions/Restrictions: You were evaluated on an emergency basis. It is very important that you follow- up with your primary care provider and any specialist who we discussed within the next 2 days in order to better assess your health more comprehensively. For example, incidental findings on imaging or laboratory results that were performed today may be discovered, which do not require immediate medical care, but may impact your health in the future. If your symptoms worsen or persist, please return to the emergency department immediately for reassessment. Take all medications as prescribed. In queue for allowing me to participate in your health care, and I hope you feel better soon. Clinical Impressions Clinical Impression: Community acquired pneumonia Instructions Patient Instructions: DI for Pneumonia in Adults Print Language Print Language: Bruneian Discharge ED Provider: Silvana Bryan General Adult HPI General Chief complaint: Cough Stated complaint: CP Time Seen by Provider: 08/07/25 18:08 History of Present Illness HPI narrative: 50-year-old female presents emergency department complaints of nonproductive cough since . She states that she was seen in [facility] where she was swabbed for COVID and flu that was negative. She states that she was initially given a Z-Thomas and steroids for treatment of her symptoms however the cough persisted. She states that she then returned and was prescribed Levaquin however she just finished her last dose of Levaquin and still has this nonproductive cough. Denies fevers. She reports she does have a history of asthma and is also out of her albuterol inhaler. Related Data Home Medications ?Medication ?Instructions ?Recorded ?Confirmed levocetirizine 5 mg tablet 5 mg PO DAILY Allergy sympt oms 08/12/20 07/22/25 fluticasone fur. 200 mcg-umeclid 1 ea inhalation DAILY COPD 07/28/22 07/22/25 62.5 mcg-vilant 25 mcg inhalat.powder (Trelegy Ellipta) montelukast 10 mg tablet 10 mg PO PM Allergy symptoms 07/28/22 07/22/25 nebivolol 5 mg tablet (Bystolic) 5 mg PO DAILY blood p ressure 07/28/22 07/22/25 pantoprazole 40 mg tablet,delayed 40 mg PO BID acid re flux 07/28/22 07/22/25 release ubrogepant 100 mg tablet (Ubrelvy) 100 mg PO BID PRN . 06/21/23 07/22/25 fluticasone propionate 50 50 mcg intranasal NEEDED PRN CON 04/19/24 07/22/25 mcg/actuation nasal spray,suspension fremanezumab-vfrm 225 mg/1.5 mL 225 mg SQ MONTHLY 04/0907/22/25 subcutaneous auto-injector (Ajovy) tizanidine 4 mg tablet 4 mg PO HS 04/19/24 07/22/25 topiramate 100 mg tablet 100 mg PO HS 04/19/24 promethazine 12.5 mg tablet 12.5 mg PO DAILYP PRN Naus ea And 07/26/24 07/22/25 Vomiting estradiol 0.075 mg/24 hr patch transdermal 07/22/25 1 09/22/24 semiweekly transdermal patch (Lyllana) Previous Rx's ?Medication ?Instructions ?Recorded albuterol sulfate 90 mcg/actuation 1 - 2 puffs inhalat ion Q4-6H PRN 10/23/18 aerosol inhaler Shortness Of Breath Or Wheez ing #1 inh dzhuyh-bxcvcksg-cbvfkqh 2 cap PO ACHS pancreatitis # 720 07/26/24 (pork)36,000-114,000-180k unit caps capsule,del rel (Creon) azithromycin 250 mg tablet See Rx Instructions PO .COM PLEX #6 07/22/25 (Zithromax Z-Thomas) tabs guaifenesin 600 mg tablet, 600 mg PO Q12H PRN congesti on #30 07/22/25 extended release 12 hr tabs methylprednisolone 4 mg tablets in See Rx Instructions PO PER PKG DIR 07/22/25 a dose pack #21 tabs azithromycin 250 mg tablet See Rx Instructions PO .COM PLEX #6 08/07/25 (Zithromax Z-Thomas) tabs cefdinir 300 mg capsule 300 mg PO Q12H 5 days #10 ca ps 08/07/25 Allergies Allergy/AdvReac Type Severity Reaction Status Date / Time Penicillins (PENICILLINS) Allergy Mild Hives Verified 07/22/25 11:07 codeine Allergy itching Verified 07/22/25 11:07 hydrocodone Allergy itching Verified 07/22/25 11:07 PFSH PFSH Disclaimer: The information contained in this section may have been updated after the patient was seen, as this information can be updated by other users. 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 current occupational exposures/hazards: No caffeine: Yes Have you lived/traveled outside US in past 30 days?: No Contact w/someone who lives/traveled outside US past 30 days?: No Exposure to someone with infectious disease in past 14 days?: No Do you have a fever (greater than 100.4 F or 38 C)?: No Have you tested positive for COVID-19?: No Exposed to someone with COVID-19 in past 14 days?: No Do you have a sore throat?: No Do you have a cough?: No Do you have any weakness?: No Do you have any diarrhea?: No Are you experiencing any unusual bleeding?: No Do you have any muscle aches/pain?: No Do you have any abdominal pain?: No Are you experiencing loss of taste or smell?: No Other 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 Have you received the Flu Vaccine for this season: No Have you received the Pneumonia Vaccine: Yes ROS Obtained: Yes other Respiratory Respiratory: Reports cough Physical Exam Narrative Physical exam: General: Awake, aware, in no acute distress HEENT: Normocephalic, no evidence of trauma CV: RRR, no murmurs, rubs, or gallops Pulm: CTA bilaterally with no rhonchi, rales, wheezes ABD: Nontender, no swelling, guarding, or rebound tenderness Psych, appropriate mood and affect General General appearance: alert Respiratory Respiratory exam: Present normal lung sounds bilaterally Cardiovascular Cardiovascular exam: Present regular rate Neurological Exam Neurological exam: Present alert Medical Decision Making Medical Records Screening: Per USPSTF and CDC recommendations, given the prevalence of disease in our region, it is our hospital?s policy to screen for HIV and viral Hepatitis for all patients aged 18 and over and those with ongoing risk factors. David Inquiry Pt receiving controlled substance: No Vital Signs: 08/07/25 18:04 08/07/25 18:09 08/07/25 19:25 Temperature 98.2 F 98.2 F Temperature Source Oral Pulse Rate 85 80 Pulse Rate [Right Brachial] 84 Respiratory Rate 17 20 18 Blood Pressure 114/79 133/76 Blood Pressure [Right Arm] 121/83 Blood Pressure Mean [Right Arm] 95 Blood Pressure Source Automatic Cuff Automatic Cuff Blood Pressure Source [Right Arm] Automatic Cuff Blood Pressure Position Sitting Sitting Blood Pressure Position [Right Arm] Sitting 02 Sat by Pulse Oximetry 98 95 100 Oxygen Delivery Method Room Air Room Air Room Air Lab Data Lab Results 08/07/25 18:07: SARS-CoV-2 (PCR) Not detected, Influenza A Untype (PCR) Not detected, Influenza Type B (PCR) Not detected 08/07/25 19:43: WBC 18.1 H, RBC 4.45, Hgb 13.7, Hct 40.7, MCV 91.5, MCH 30.8, MCHC 33.7, RDW 14.6, Plt Count 299, MPV 9.4, Neut % (Auto) 72.3, Lymph % (Auto) 18.3, [place] % (Auto) 8.3, Eos % (Auto) 0.2, Baso % (Auto) 0.4, Neut # (Auto) 13.1 H, Lymph # (Auto) 3.3, [place] # (Auto) 1.5 H, Eos # (Auto) 0.0, Baso # (Auto) 0.1, Sodium 135 L, Potassium 3.4 L, Chloride 106, Carbon Dioxide 21 L, Anion Gap 11.4, BUN 21 H, Creatinine 0.90, Estimated Creat Clear 65, Estimated GFR 66, Est GFR ( Amer) 80, Glucose 102 H, Calcium 8.5, Magnesium 2.3, Total Bilirubin 0.6, AST 41 H, ALT 32, Alkaline Phosphatase 94, Total Protein 7.4, Albumin 4.2, Globulin 3.2, Albumin/Globulin Ratio 1.3 08/07/25 19:43 08/07/25 19:43 Orders (Tests/Meds): ED MEDICATIONS Generic Name Dose Route Start Last Admin Trade Name Freq PRN Reason Stop Dose Admin Sodium Chloride 10 ml 08/07/25 20:27 08/07/25 20:28 Sodium Chloride 0.9% 10ml Syr (Rad Only) IV 09/06/25 20:26 10 ml NEEDED PRN Administration Maintain IV Site Discontinued Medications Generic Name Dose Route Start Last Admin Trade Name Freq PRN Reason Stop Dose Admin Albuterol Sulfate 2 puff 08/07/25 18:16 08/07/25 19:24 Albuterol-Hfa 90mcg/Puff Inhaler 8gm IH 08/07/25 18:17 2 puff ONCE ONE Administration Iopamidol 75 ml 08/07/25 20:27 08/07/25 20:28 Iopamidol-370 (76%);100ml Bottle IV 08/07/25 20:28 75 ml ONCE ONE Administration Miscellaneous 1 unit 08/07/25 18:16 08/07/25 19:24 Aerochamber/Optihaler MC 08/07/25 18:17 1 unit ONCE ONE Administration ORDERS Category Date Time Status CT chest w con Stat Cat Scan 08/07/25 19:18 Completed XR chest portable Stat Exams 08/07/25 18:16 Completed CBC w/Auto Diff [Complete Blood Count Auto Diff] Stat Lab 08/07/25 19:43 Completed CMP [Comprehensive Metabolic Panel] Stat Lab 08/07/25 19:43 Completed Magnesium Stat Lab 08/07/25 19:43 Completed Rapid PCR Covid and Flu A/B Stat Lab 08/07/25 18:07 Completed Medical Decision Narrative: Initial impression of presenting illness: 50-year-old female presents emergency department with complaints of nonproductive cough since . She reports initially she was seen in [facility] where her COVID and flu swabs were negative. She was given a Z-Thomas and steroids to help with her symptoms however they have persisted. Patient states that she just finished a round of Levaquin for this cough however it is still present. She denies fevers. She reports she does have a history of asthma and has been out of her albuterol inhaler. Differential diagnosis includes but is not limited to: Viral illness, pneumonia, asthma exacerbation Patient arrives hemodynamically stable, afebrile, without respiratory distress with vital signs interpreted by myself. Initial physical exam unremarkable. Patient is sitting comfortably without signs of respiratory distress. Lungs are clear bilaterally. Initial diagnostic plan: COVID and flu swab, chest x-ray, albuterol inhaler for symptom relief Results from initial plan were reviewed and interpreted by myself, pertinent positives include: White blood cell count 18.1, rest of laboratory studies were nonactionable. Patient's COVID and flu swabs were negative. Patient's chest x- ray shows a oval opacity within the right midlung. Based off the x-ray results CT of the chest was ordered. It shows a peripheral opacity in the right middle lobe that is suggestive of a bronchial pneumonia. Interventions in the ED: Patient was given albuterol inhaler for symptom relief. Patient was made aware of the results and the findings, upon reevaluation patient has remained stable throughout stay, symptoms have improved. Patient states she is feeling better after receiving the albuterol. Vital signs have remained stable. Disposition: Reviewed finding today's workup with patient informed her of her CT findings. Advised her that we will treat with azithromycin as well as Omnicef for treatment of pneumonia. Had discussion with patient that we wanted to ensure that this was actual pneumonia instead of a lung mass. I recommended that she follow-up with pulmonology for outpatient evaluation and follow-up. In informed her that she can continue with her albuterol inhaler 2 puffs every 4 hours as needed. Ducted her to return to the emergency department any new or worsening symptoms. Patient is agreeable to plan of care. Patient made aware of findings and had a detailed discussion with symptomatic care and return precautions, patient voiced understanding. Critical Care Critical Care Time Critical Care Time: No
--- OUTSIDE RECORDS SUMMARY | 2025-08-07 18:08 | XMS_ITS | Encounter Summary ---
Author Organization [employer] ([place], [place], [place], [place], [place]) Address [address] [place] [address] Care Team Providers Care Data Analytics Chief Scientist Name Role Phone Stacy Valerio MD Primary Care Provider [phone] Natalie Coats APRN Unavailable [phone] Zehra Rey MD Unavailable [phone] Reason for Visit * Reason Onset Date Comments Mixing Machine Tender Cork Gasket office is req. ref. letter be faxed f nelda kinney. 01/01/2023 Encounter Details Date Type Department Care Team (Late st Contact Info) Description 01/01/2023 Telephone [facility] Primary Care [address] [place] [address] Agsuto Lantigua MD [address] [facility] [place] [address] Mixing Machine Tender Cork Gasket office is req. ref. letter be faxed from [facility]. Social History Tobacco Use Types Packs/Day Years [...] Miscellaneous Notes * Telephone Encounter - Nga Durand Jasmin - 01/01/2023 2:34 PM EDT Patient Shaila Hein 1975 called the office of and stated the the fly finisher she chose was Dr. Hu and their office requires the referral letter that was given to the patient be faxed over from the primary care providers office. Dr Hu's fax number [phone]. Patient's contact number is [phone]. documented in this encounter Plan of Treatment Upcoming Encounters Date Type Department Care Team (Late st Contact Info) Description 08/08/2025 8:45 AM EST Office Visit [facility] Primary Care [address] [place] [address] Ruthann Glover MD [address] [place] [address] 09/10/2025 10:30 AM EST Procedure Visit [facility] Neurology - [facility] [address] [facility] [address] [address] [place] [address] Natalie Coats, INSPECTOR MACHINED PARTS [address] [facility] [place], [place] [address] 11/27/2025 10:30 AM EDT [facility] [address] [place] [address] Stacy Valerio MD [address] [place], [place] [address] 05/06/2026 2:30 PM EDT Appointment [facility] Breast Imaging [address] [place] [address] [address] [place] [address] Stacy Valerio MD [address] [place], [place] [address] documented as of this encounter Visit Diagnoses Not on filedocumented in this encounter Care Teams Data Analytics Chief Scientist Relationship Specialty Start Date End Date Stacy Valerio MD [address] [facility] [address] [place], [place] [phone] PCP - General Internal Medicine/Pediatrics 05/06/22 Natalie Coats, INSPECTOR MACHINED PARTS [address] [facility] [facility] [address] [place], [place] [address] Neurology 11/30/23 Zehra Rey MD [address] [facility] [address] [place], [place] [address] Interventional Cardiology 11/30/23 documented as of this encounter
--- OUTSIDE RECORDS SUMMARY | 2025-08-07 18:08 | XMS_ITS | Clinical Summary ---
Author Organization [employer] ([place], [place], [place], [place], [place]) Address [address] [place] [address] Care Team Providers Care Motor Bus Driver Name Role Phone Stacy Valerio MD Primary Care Provider [phone] Natalie Coats APRN Unavailable [phone] Zehra Rey MD Unavailable [phone] Allergies Active Allergy Reactions Criticality Noted [...] Encounters Date Type Department Care Team Description 08/07/2025 Telephone [facility] Primary Care [address] [place] [address] Ruthann Glover MD NURSE TRIAGE 06/18/2025 10:30 AM EST Procedure Visit [facility] Neurology - [facility] [address] [place] [address] Natalie Coats APRN Intractable chronic migraine without aura and without status migrainosus (Primary Dx) 06/18/2025 Travel from Last 3 Months Immunizations Immunization Administration Dates Next Due COVID-19 2022- PFIZER (COM IRNATY) 12 YRS + ([id number]) 10/02/2021 Covid-19 Vaccine MRNA (PF) 1 8yr+ (Moderna)([id number]) 10/03/2021,04/16/2021,09/27/2020,2020 Influenza Four-QIV 6MO+ PF I M ([id number]) 05/08/2022 Influenza Four-qiv Pf 05/29/2020,04/27/2015 Influenza Quad-qiv [...] Date Alexandr rded Speak language other than Ugandan at home Not on file 08/20/2023 Want [...] Visit [facility] Primary Care [address] [place] [address] Ruthann Glover MD [address] [place] [address] 09/10/2025 10:30 AM EST Procedure Visit [facility] Neurology - [facility] [address] [place] [address] Natalie Coats, GABRIELLE [address] [facility] [address] [place] [address] 11/27/2025 10:30 AM EDT Office Visit [facility] [address] [place] [address] Stacy Valerio MD [address] [place] [address] 05/06/2026 2:30 PM EDT Appointment [facility] Breast Imaging [address] [place] [address] [address] [place] [address] Stacy Valerio MD [address] [place] [address] Health Maintenance Due Date Last Done Comments CT Colonography 1973 FOBT/FIT 1973 Fit-DNA (Cologuard) 1973 Sigmoidoscopy 1973 HIV Screening 1988 Hepatitis C Screening 1991 Pap Smear 1994 Pneumococcal 50+ years (1 of 1 - PCV) 2023 Shingles Vaccine (Zoster) (1 of 2) 2023 COVID-19 VACCINE (6 - 2024-2 6 season) 2025 10/03/2021, 10/02/2021, [...] lateral to the nipple. Stacy Valerio MD [facility] ORDERABLES Final Result * HM COLONOSCOPY (03/02/2025 10:25 AM EDT) [facility] Provider HEALTH MAINTENANCE Final Result * [...] - 11/23/2024 11:07 AM EDT Performed at: [facility] [address] [id number] Litigation Associate: Danyel Fierro PhD, Phone: [phone] Stacy Valerio MD LAB BLOOD ORDERABLES Final Result [facility] from Last 3 Months or Most Recently Relevant to Health Maintenance Insurance BLUE CROSS/BLUE SHIELD Care Teams Motor Bus Driver Relationship Specialty Start Date End Date Stacy Valerio MD [address] [place] [address] PCP - General Internal Medicine/Pediatrics 05/06/22 Natalie Coats, FOOD CASHIER [address] [facility] [address] [place] [address] Neurology 11/30/23 Zehra Rey MD [address] [facility] [address] [place] [address] Interventional Cardiology 11/30/23
--- OUTSIDE RECORDS SUMMARY | 2025-08-07 18:08 | XMS_ITS | Encounter Summary ---
Author Organization [employer] ([place], [place], [place], [place], [place]) Address [address] [place] [address] Care Team Providers Care Corsage Maker Name Role Phone Stacy Valerio MD Primary Care Provider [phone] Natalie Coats RESPIRATORY TECH Unavailable [phone] Zehra Rey MD Unavailable [phone] Reason for Visit * Reason Onset Date Comments Ajovy Questions 10/12/2022 Encounter Details Date Type Department Care Team (Late st Contact Info) Description 10/12/2022 Telephone [facility] Neurology - [facility] [address] [place] [address] [address] [place] [address] Natalie Coats, RESPIRATORY TECH [address] [facility] [address] [place] [address] Ajovy Questions Social History Tobacco Use Types [...] has questions about the prescription. Please advise. DRYER documented in this encounter Plan of Treatment Upcoming Encounters Date Type Department Care Team (Late st Contact Info) Description 08/08/2025 8:45 AM EST Office Visit [facility] Primary Care [address] [facility] [address] [place] [address] Ruthann Glover MD [address] [facility] [address] [place] [address] 09/10/2025 10:30 AM EST Procedure Visit [facility] Neurology - [address] [place] [address] Natalie Coats, RESPIRATORY TECH [address] [facility] [address] [place] [address] 11/27/2025 10:30 AM EDT Office Visit [facility] [address] [facility] [address] [place] [address] Stacy Valerio MD [address] [facility] [address] [place], [place] [address] 05/06/2026 2:30 PM EDT Appointment [facility] Breast Imaging [address] [place] [address] [address] [place] [address] Stacy Valerio MD [address] [facility] [address] [place] [address] documented as of this encounter Visit Diagnoses Not on filedocumented in this encounter Care Teams Corsage Maker Relationship Specialty Start Date End Date Stacy Valerio MD [address] [facility] [address] [place] [address] PCP - General Internal Medicine/Pediatrics 05/06/22 Natalie Coats, RESPIRATORY TECH [address] [facility] [address] [place] [address] Neurology 11/30/23 Zehra Rey MD [address] [facility] [address] [place], [place] [address] Interventional Cardiology 11/30/23 documented as of this encounter
--- OUTSIDE RECORDS SUMMARY | 2025-08-07 18:08 | XMS_ITS | Encounter Summary ---
Author Organization [employer] ([place], [place], [place], [place], [place]) Address [address] [place] [address] Care Team Providers Care Dining Car Conductor Name Role Phone Stacy Valerio MD Primary Care Provider [phone] Natalie Coats APRN Unavailable [phone] Zehra Rey MD Unavailable [phone] Encounter Details Date Type Department Care [...] Date Alexandr rded Speak language other than Senegalese at home Not on file 08/20/2023 Want [...] AM CDT documented as of this encounter Functional Status * Communicable Disease Screening Question Answer Date of Assessment Author Have you been in contact with someone who was sick? No / Unsure 06/18/2025 10:31 AM Diane Silva Do you have any of the following new or worsening symptoms? None of these 06/18/2025 10:31 AM Diane Silva documented as of this encounter Plan of Treatment Upcoming Encounters Date Type Department Care Team (Late st Contact Info) Description 08/08/2025 8:45 AM EST Office Visit [facility] Primary Care [address] [facility] [address] [place] [address] Ruthann Glover MD [address] [facility] [address] [place] [address] 09/10/2025 10:30 AM EST Procedure Visit [facility] Neurology - [facility] [place] [address] Natalie Coats, RESTAURANT ATTENDANT [address] [facility] [address] [place] [address] 11/27/2025 10:30 AM EDT Office Visit [facility] Primary Care [address] [facility] [address] [place] [address] Stacy Valerio MD [address] [facility] [address] [place] [address] 05/06/2026 2:30 PM EDT Appointment [facility] Breast Imaging [address] [facility] [address] [place] [address] Stacy Valerio MD [address] [facility] [address] [place] [address] documented as of this encounter Visit Diagnoses Not on filedocumented in this encounter Care Teams Dining Car Conductor Relationship Specialty Start Date End Date Stacy Valerio MD [address] [facility] [address] [place] [address] PCP - General Internal Medicine/Pediatrics 05/06/22 Natalie Coats, RESTAURANT ATTENDANT [address] [facility] [address] [place] [address] Neurology 11/30/23 Zehra Rey MD [address] [facility] [address] [place] [address] Interventional Cardiology 11/30/23 documented as of this encounter
--- OUTSIDE RECORDS SUMMARY | 2025-08-07 18:08 | XMS_ITS | Continuity of Care Document ---
Author Organization [facility] [place] Address [address] [place] [address] Care Team Providers Care Retail Support Associate Name Role Phone DEEPALI HOWELL Primary Care Provider DEEPALI HOWELL Referring Provider [phone] Assessment No assessment recorded. 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 Procedures Surgical History Date Name Laterality Status Provider Name and Address Organization Details Recorded Time 018 Nerve Block; Occipital Nerve(s) completed MD [place], [address], [place] [facility] 10/05/2017 18:55:19 017 Nerve Block; Occipital Nerve(s) completed [place], [address], [facility] 01/27/2017 11:00:29 Cholecystectomy completed [facility] 01/07/2017 10:33:35 Other completed [facility] 01/07/2017 10:33:57 Hysterectomy completed [facility] 01/07/2017 10:34:00 Tubal Ligation completed [facility] 01/07/2017 10:34:03 Other completed [facility] 01/07/2017 10:34:36 Imaging Results None recorded. Procedure Notes None recorded. Medical Equipment None Reported. Allergies Allergen ID Allergen Name Allergen Category Reaction Reaction Severity Criticality Documentation Date Start Date Code Code System Note Provider Name and Address Organization Details Recorded Time 798911 Product containin g penicilli n (product) medicatio n Not available Not available Not available 07/02/20162005 63955 8001 SNOMED Comme nt: Creat ed By: Reddy Khan eated Date: 2005 5:13: 32 PM; Not Available [facility] 6 10:13:07 Medications Name Sig Start [...] Astelin 137 mcg (0.1 %) nasal spray [place] 2 sprays twice a day by intranas [...] Tobacco Smoking Status Never Smoker Susana Fortunato [facility] 01/07/2017 10:33:18 Live Alone Or With Others? [...] ICD10 Code Diagnosis IMO Codes Diagnosis Note [id number] LEAH URBANO PA-C [place] [address] [place] [address] 05/22/2025 12:44:13 05/22/2025 15:00:46 Multiple benign melanocytic nevi 992195307 D22.5 I78.1 L82.1 L81.4 Benign appearing lesions [...] ID Guarantor Name 05/22/2025 1 [place] [id number] Ugo Hein [id number] Shaila Hein Notes Date Note Type Note Provider Name and Address Organization Details Recorded Time 05/22/2025 text/html Here for a full body skin examination - last skin check: 01/07/2023- no history of skin cancer- spots of concern today: R breast, back MICKEY SOSAC [address] [place], [address], [facility] - [facility] 05/24/2025 08:03:44 OBGyn Episode No OBEpisode recorded.
--- OUTSIDE RECORDS SUMMARY | 2025-08-07 18:08 | XMS_ITS | Clinical Summary ---
Author Organization [facility] Address [address] [place] [address] Phone Care Team Providers Care Victims Advocate Clerk/Specialist Name Role Phone Unavailable Primary Care Provider [...] Active fluticasone propionate (FLONASE) 50 mcg/actuation Nasl [place], Suspension 1 [place] by Nasal route daily. Active TRELEGY ELLIPTA [...] 8 hours as needed. for nausea Active Active Problems Problem Noted Date Diagnosed Date [...] of 2) 2023 COVID-19 Vaccine (5 - season) 2025 10/03/2021, 10/02/2021, 04/16/2021, Additional history exists Influenza Vaccine (#1) 2025 , 08/26/2023, 05/08/2022, Additional history exists Breast Cancer Screening 04/04/2026 04/04/20, 04/04/2024, 01/06/2023, Additional history exists DTaP/TDaP/Td (3 - Td or Tdap) 06/21/2034 06/21/2024, 02/22/2021 Meningococcal B Vaccine Aged Out No l onger eligible based on patient's age to complete this topic Insurance [employer] PPO AN[employer] PPO
--- OUTSIDE RECORDS SUMMARY | 2025-08-07 18:08 | XMS_ITS | Clinical Summary ---
Author Organization Healthcare Address [address] [place] [address] Care Team Providers Care Humanities Department Chair Name Role Phone Stephanie Dorsey APRN Primary Care Provider [phone] Immunizations Immunization Administration Dates Next Due Influenza, [...] of Treatment Not on file Care Teams Humanities Department Chair Relationship Specialty Start Date End Date Stephanie Dorsey APRN [address] [place] [address] PCP - General 12/20/20
--- OUTSIDE RECORDS SUMMARY | 2025-08-07 18:08 | XMS_ITS | Referral Summary ---
Author Organization [facility] ([place], [place], [place], [place], [place]) Address [address] [place] [address] Care Team Providers Care Rougher Helper Name Role Phone Stacy Valerio MD Primary Care Provider [phone] Natalie Coats SAP CRM DEVELOPER Unavailable [phone] Zehra Rey MD Unavailable [phone] Encounters Date Type Department Care Team Description 08/07/2025 Telephone [facility] [address] [place] [address] Ruthann Glover MD NURSE TRIAGE 06/18/2025 Travel 06/18/2025 10:30 AM EST Procedure Visit [facility] Neurology - [address] [place] [address] Natalie Coats, SAP CRM DEVELOPER Intractable chronic migraine without aura and without status migrainosus (Primary Dx) from Last 3 Months Allergies Active Allergy Reactions Criticality Noted Date Comments Codeine 11/03/2022 Hydrocodone Itching 08/17/2022 Penicillins 10/22/2005 Medications fluticasone-ume clidin-vilanter (Trelegy Ellipta) 100-62.5-25 mcg DsDv Inhale by mouth via inhaler daily. Active albuterol HFA (VENTOLIN HFA) 90 mcg/actuation inhaler Active levocetirizine (XYZAL) 5 MG tablet 12/29/2 022 Active Creon 36,000-114,000- 180,000 unit CpDR capsule [...] hr patch 1 patch twice a week. Active pantoprazole (PROTONIX) 40 MG tabletIndicatio ns:Gastroesopha [...] Immunization Administration Dates Next Due COVID-19 2022- [employer] (COM IRNATY) 12 YRS + ([id number]) 10/02/2021 Covid-19 Vaccine MRNA (PF) 1 8yr+ (Moderna)([id number]) 10/03/2021,04/16/2021,09/27/2020,2020 Influenza Four-QIV 6MO+ PF I M ([id number]) 05/08/2022 Influenza Four-qiv Pf 05/29/2020,04/27/2015 Influenza Quad-qiv [...] Date Alexandr rded Speak language other than Lithuanian at home Not on file 08/20/2023 Want [...] Description 08/08/2025 8:45 AM EST Office Visit [facility] [address] [facility] [address] [facility] [address] [place] [address] Ruthann Glover MD [address] [place] [address] 09/10/2025 10:30 AM EST Procedure Visit [facility] Neu[facility] - [facility] [address] [place] [id number] Natalie Coats APRN [address] [facility] [address] [place] [address] 11/27/2025 10:30 AM EDT Office Visit [facility] Care [address] [place] [address] Stacy Valerio MD [address] [facility] [address] [place], [place] [id number] 05/06/2026 2:30 PM EDT Appointment [facility] Breast Imaging [address] [place] [address] [address] [place] [address] Stacy Valerio MD [address] [facility] [address] [place], [place] [id number] Procedures Procedure Name Priority Date/Time Associated Diagnosis [...] 11/23/2024 11:07 AM EDT Performed at: 01 - [facility] [address] [id number] Program Clinician: Danyel Fierro PhD, Phone: [phone] us Stacy Valerio MD LAB BLOOD ORDERABLES Final Result [facility] from Last 3 Months or Most Recently Relevant to Health Maintenance Insurance BLUE CROSS/BLUE SHIELD Care Teams Rougher Helper Relationship Specialty Start Date End Date Stacy Valerio MD [address] [facility] [address] [place] [address] PCP - General Internal Medicine/Pediatrics 05/06/22 Natalie Coats, SAP CRM DEVELOPER [address] [facility] [address] [place] [address] Neurology 11/30/23 Zehra Rey MD [address] [facility] [address] [place] [address] Interventional Cardiology 11/30/23
--- OUTSIDE RECORDS SUMMARY | 2025-08-07 18:08 | XMS_ITS | Data Portability ---
Author Organization [facility]MEL[facility] Address [address] [place] [address] Care Team Providers Care Manager Secondary Name Role Phone DEEPALI HOWELL Primary Care Provider DEEPALI HOWELL Referring Provider [phone] Assessment No assessment recorded. Plan of Treatment Reminders Order Date Submit Date Provider Last Modified By Organization Details Last Modified Time Details Appointments None recorded. Lab None recorded. Referral None recorded. Procedures None recorded. Surgeries None recorded. Imaging None recorded. Medication Orders promethazi ne 12.5 mg tablet 2019 020 INTERFACE [facility] [place], [address], 0 09:04:25 Ajovy Syringe 225 mg/1.5 mL subcutaneo us 2019 020 INTERFACE [facility], [address] [place], [address], 0 09:04:23 Ubrelvy 100 mg tablet 2019 020 INTERFACE [facility], [address] [place], [address], 0 09:04:29 amitriptyl ine 25 mg tablet 2017 018 david [facility], [address] [place] [address], [address], 0 08:09:51 Treximet 85 mg-500 mg tablet 2017 018 INTERFACE [facility], [address], [address], 8 10:32:22 promethazi ne 12.5 mg tablet 2017 018 INTERFACE [facility], [address], [address], 8 10:32:21 Ajovy Syringe 225 mg/1.5 mL subcutaneo us 2017 018 INTERFACE [facility], [address], [address], 8 10:32:24 Patient TargetsNo targets recorded. Patient Instructions Encounter Date Encounter Id Patient Instructions Last Modified By Organization Details Last Modified Time 07/12/2018 [id number] neck pain: care instructions [email or web address] Not available 07/12/2018 10:32:16 insomnia: care instructions [email or web address] Not available 07/12/2018 10:32:16 04/30/2020 [id number] neck pain: care instructions [email or web address] Not available 04/30/2020 09:04:14 insomnia: care instructions [email or web address] Not available 04/30/2020 09:04:14 Reason for Referral None Reported. 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 Procedures Surgical History Date Name Laterality Status Provider Name and Address Organization Details Recorded Time 018 Nerve Block; Occipital Nerve(s) completed ROSA ISELA ESPAÑA MD [address] [place], [address], [facility] 10/05/2017 18:55:19 017 Nerve Block; Occipital Nerve(s) completed ROSA ISELA ESPAÑA MD [address] [place], [address], [facility] 01/27/2017 11:00:29 Cholecystectomy completed [facility] 01/07/2017 10:33:35 Other completed [facility] 01/07/2017 10:33:57 Hysterectomy completed [facility] 01/07/2017 10:34:00 Tubal Ligation completed [facility] 01/07/2017 10:34:03 Other completed [facility] 01/07/2017 10:34:36 Imaging Results None recorded. Procedure Notes None recorded. Medical Equipment None Reported. Allergies Allergen ID Allergen Name Allergen Category Reaction Reaction Severity Criticality Documentation Date Start Date Code Code System Note Provider Name and Address Organization Details Recorded Time 122454 Product containin g penicilli n (product) medicatio n Not available Not available Not available 07/02/20162005 28126 8001 SNOMED Comme nt: Creat ed By: Reddy Khan eated Date: 2005 5:13: 32 PM; Not Available [facility] 6 10:13:07 Medications Name Sig Start [...] Astelin 137 mcg (0.1 %) nasal spray Hobbs 2 sprays twice a day by intranas [...] Updated DateTime 10/05/2017 157.48 cm 23.8 kg/m2 52144.01 g 70 /min 104/72 mm[Hg] Susana Bucio [facility] 8 15:23:02 Date Recorded Body height Body mass index (BMI) Body weight Heart rate Systolic And Diastolic Provider Name and Address Organization Details Last Updated DateTime 01/27/2017 157.48 cm 23.4 kg/m2 66982.82 g 70 /min 120/77 mm[Hg] Susana Bucio [facility] 7 10:26:55 Date Recorded Body height Body mass index (BMI) Body weight Heart rate Systolic And Diastolic Provider Name and Address Organization Details Last Updated DateTime 04/30/2020 157.48 cm 25.1 kg/m2 35846.15 g 68 /min 110/70 mm[Hg] Yue Hussein [facility] 0 08:07:44 Date Recorded Body height Body mass index (BMI) Body weight Heart rate Systolic And Diastolic Provider Name and Address Organization Details Last Updated DateTime 07/12/2018 157.48 cm 23.2 kg/m2 23069.23 g 70 /min 118/82 mm[Hg] [facility] 8 09:02:14 Social History Question Answer Notes LastModified by Organizat ion Details LastModified Time Tobacco Smoking Status Never Smoker Susana Bucio [facility] 01/07/2017 10:33:18 Live Alone Or With Others? [...] 10:33:08 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 Condition Response Emphysema N Migraines Y COPD N Depression Y Diabetes N Bleeding Disorder N Arthritis Y Acid Reflux (GERD) Y Cancer Y Asthma Y Heart Disease N Hypertension Y Gynecological HistoryNo gynecological history recorded. Obstetrics History GPAL:G 0 P 0 0 0 0 Past Encounters Encounter ID Performer Location Encounter Start Date Encounter Closed Date Diagnosis/Indication Diagnosis SNOMED-CT Code Diagnosis ICD10 Code Diagnosis IMO Codes Diagnosis Note [id number] ROSA ISELA ESPAÑA MD NEUROLOGY [facility] [address] [place] [address] 01/07/2017 15:20:15 01/07/2017 16:19:44 Neck pain 10545889 M54.2 Continue Deep Blue or Past Tense, massage, range of motion exercises. Migraine without aura 56 896508 G43.009 41 year-old left-jazzmine d woman with [...] 1 yr fup or sooner PRN Insomnia 696612762 G47.0 0 - Restart back on amitriptyl ine 25 mg nightly -- Stop melatonin while on the amitriptyl ine [id number] SD OWENS MD RHEUMATOL [facility] [address] [place] [address] 01/14/2017 08:47:12 01/14/2017 10:51:15 Anti-nuclear factor detected 318320826 R76.8 she has a low positive ARLEY [...] further evaluation . Primary fi bromyalgia syndrome 97148354 M79.7 Her aches, pains, fatigue, poor non restorativ e sleep along with brain fog, raises concerns about likely Fibromyalg ia syndrome.S he is educated about this condition. Encouraged good sleep hygeine and I fully agree with amitriptyl ine at night.She will look into swimming and maintain her Karate classes.Ca n RTC as needed. [id number] ROSA ISELA ESPAÑA MD NEUROLOGY [facility] [address] [place] [address] 01/27/2017 09:52:53 01/27/2017 11:01:52 Muscle pain 10938094 M79.1 Performed TPI's in traps, CPS and R rhomboidPt tolerated injections wellCCMM Refractory migraine without aura 482371791 G43.019 Performed b/l G/L/TONBsP t tolerated injections wellCCMM [id number] ROSA ISELA ESPAÑA MD NEUROLOGY [facility] [address] [place] [address] 10/05/2017 15:17:21 10/05/2017 15:52:57 Muscle pain 95802748 M79.1 Performed TPI's in traps, CPS and R rhomboidPt tolerated injections wellCCMM Refractory migraine without aura 117802359 G43.019 Performed bilateral greater, lesser and third occipital nerve blocksPt tolerated injections [facility] [id number] ROSA ISELA ESPAÑA MD NEUROLOGY [facility] CL[facility] [address] [place] [address] 07/12/2018 08:31:16 07/12/2018 10:39:23 Migraine without aura 25386308 G43.009 43 year-old left-jazzmine d woman with [...] yr fup or sooner PRN Neck pain 14089107 M54.2 Continue Deep Blue or Past Tense, massage, range of motion exercises. Insomnia 535913262 G47.0 0 - Restart back on amitriptyl ine 25 mg nightly -- Stop melatonin while on the amitriptyl ine Fibromyalgia 609901166 M 79.7 encouraged regular exercise, swimming, doing karate, uses Deep Blue, massage; no depression but some low mood, sleep helps RTC 6 months [id number] ROSA ISELA ESPAÑA MD NEUROLOGY [facility] [address] [place] [address] 04/30/2020 07:46:35 04/30/2020 09:06:06 Migraine without aura 46600706 G43.009 43 year-old left-jazzmine d woman with [...] yr fup or sooner PRN Neck pain 61214009 M54.2 Continue peppermint oil, Deep Blue or Past Tense, massage, range of motion exercises. Insomnia 433408002 G47.0 0 Sleeping better since on higher dose of amitriptyl ine. -- Stop melatonin while on the amitriptyl ine Fibromyalgia 413980557 M 79.7 encouraged regular exercise, swimming, doing karate, uses Deep Blue, massage; no depression but some low mood, sleep helps RTC 6 months [id number] LEAH URBANO PA-C [facility] [address] [place] [address] 05/22/2025 12:44:13 05/22/2025 15:00:46 Multiple benign melanocytic nevi 048876429 D22.5 I78.1 L82.1 L81.4 Benign appearing lesions [...] ID Guarantor Name 05/28/2025 1 [employer] [id number] Ugo Hein [id number] 06 Shaila Hein Notes Date Note Type [...] Still taking amitriptyline. 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 She had knee surgery in Apr to clean it out. Better. ROSA ISELA ESPAÑA MD [address] [place] [address], [address], [facility] 07/12/2018 10:32:20 04/30/2020 text/html f/u migraine She [...] dose was increased to [address] 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 She is also [...] and then. ROSA ISELA ESPAÑA MD [address] [place], [address], [facility] 04/30/2020 09:04:25 05/22/2025 text/html Here for a full body skin examination - last skin check: 01/07/2023- no history of skin cancer- spots of concern today: R breast, back LEAH LONDON URBANO PA-C [address] [place], [address], [facility] 05/24/2025 08:03:44 OBGyn Episode No OBEpisode recorded.
--- OUTSIDE RECORDS SUMMARY | 2025-08-07 18:08 | XMS_ITS | Clinical Summary ---
Author Organization [facility] Address [address] [place] [address] Care Team Providers Care Paper Reeler Name Role Phone No Pcp, [facility] Primary Care Provider Unavailabl e Source Comments [facility] is fully rolled out with thefollowing exceptions:General Clinical Research [facility] Social History Tobacco Use Types Packs/Day Years [...] age to complete this topic HPV IMMUNIZATION (No Doses Required) Completed IPV IMMUNIZATION Aged Out No longer e [...] age to complete this topic Care Teams Paper Reeler Relationship Specialty Start Date End Date No Pcp, [facility] PCP - General 04/24/19
[2025-08-07 18:09] VITALS: BP 114/79; PULSE 85; RESP 20; TEMP 36.8; O2SAT 95
[2025-08-07 18:12] LABS: Coronavirus 19, PCR Not Detected (NotDetected); Influenza A, PCR Not Detected (NotDetected); Influenza B, PCR Not Detected (NotDetected)
--- NOTE | 2025-08-07 18:16 | XR_ITS ---
PROCEDURE INFORMATION: Exam: XR Chest Exam date and time: 08/07/2025 6:49 PM Age: 50 years old Clinical indication: Cough; Additional info: Cough x 1 month, antibiotics not helping TECHNIQUE: Imaging protocol: Radiologic exam of the chest. Views: 1 view. COMPARISON: CR XR CHEST 2V 06/22/2024 9:51 AM FINDINGS: Lungs: There is somewhat ovoid opacity in the right mid lung which is new since prior exam. While findings may reflect a focus of pneumonia, recommend short-term follow-up to exclude the possibility of mass.There are punctate pulmonary parenchymal calcifications consistent with remote granulomatous organism exposure. The lungs appear otherwise clear. Calcified hilar lymph nodes indicate prior granulomatous disease. Pleural spaces: No pleural effusions. Negative for pneumothorax. Heart/Mediastinum: Cardiac silhouette and pulmonary vasculature are within range of normal. Vasculature: There is an ovoid calcification in the left upper quadrant which is stable and corresponds to the splenic artery aneurysm on CT dated 07/2022. Bones/joints: There is no evidence of acute fracture. IMPRESSION: 1. Somewhat ovoid opacity in the right mid lung which is new since prior exam. While findings may reflect a focus of pneumonia, recommend short-term follow-up to exclude the possibility of mass. 2. Stable ovoid calcification measuring 19 x 22 mm in the left upper quadrant corresponding to the splenic artery aneurysm on CT dated 07/2022. Findings were discussed with Dr. Bryan at 08/07/2025 7:52 PM EST.
--- NOTE | 2025-08-07 19:18 | CT_ITS ---
PROCEDURE INFORMATION: Exam: CT Chest With Contrast; Diagnostic Exam date and time: 08/07/2025 8:18 PM Age: 50 years old Clinical indication: Cough; Additional info: Fu mass on cxr TECHNIQUE: Imaging protocol: Diagnostic computed tomography of the chest with contrast. Radiation optimization: All CT scans at this facility use at least one of these dose optimization techniques: automated exposure control; mA and/or kV adjustment per patient size (includes targeted exams where dose is matched to clinical indication); or iterative reconstruction. Contrast material: ISOVUE; Contrast volume: 75 ml; Contrast route: IV; COMPARISON: CT ANGIO CHEST PE PROTOCOL 07/28/2022 12:13 PM FINDINGS: Thyroid: The thyroid gland is normal. Lungs: There is a somewhat ovoid peripheral opacity in the right middle lobe with a few air bronchograms consistent with the recent chest x-ray findings. The overall appearance suggests a focus of bronchopneumonia. Recommend short-term follow-up to ensure resolutio. There is also a small bandlike opacity in the left lower lobe posteromedially with adjacent air bronchograms which may reflect an additional focus of bronchopneumonia or atelectasis. There are few small nodules in the adjacent right middle lobe, none of which measure larger than 6 mm. The largest is a subpleural nodule in the right middle lobe seen on series 3, image 56. There is a subpleural 3 mm nodule in the superolateral right upper lobe seen on series 3, image 17. There is a 4 mm nodule in the lingula seen on series 3, image 51. There are punctate pulmonary parenchymal calcifications consistent with remote granulomatous organism exposure. Pleural spaces: No pleural effusions. No pneumothorax. Heart: The heart is not enlarged. There is a trace amount of pericardial fluid. There is a trace amount of pericardial fluid. Lymph nodes: Calcified hilar and mediastinal lymph nodes indicate prior granulomatous disease. There is no evidence of pathologic adenopathy. Vasculature: There is no evidence of an aortic aneurysm. There is no evidence of aortic dissection, leak, rupture, or other acute vascular pathology. There is a 20 x 19 mm curvilinear calcification in the left hilar region consistent with splenic artery aneurysm. This is stable when compared with 07/28/22. Liver: There is diffuse decrease in hepatic/liver parenchymal density consistent with fatty infiltration. Bones/joints: Unremarkable. No acute fracture. Soft tissues: Unremarkable. Other findings: Dental amalgam artifact limits evaluation of adjacent structures. IMPRESSION: 1. Somewhat ovoid peripheral opacity in the right middle lobe with a few air bronchograms consistent with the recent chest x-ray findings. The overall appearance suggests a focus of bronchopneumonia. Recommend short-term follow-up to ensure resolution. 2. Small bandlike opacity in the left lower lobe posteromedially with adjacent air bronchograms which may reflect an additional focus of bronchopneumonia or atelectasis. 3. Stable 20 x 19 mm splenic artery aneurysm when compared with 07/28/22. 4. A few scattered nonspecific small pulmonary nodules. For patients at low risk (minimal or absent history of smoking and of other known risk factors), no routine follow-up is indicated. For patients at high risk (history of smoking or of other known risk factors), consider optional CT Chest at 12 months. (Reference: Sarah) References: Ignaciohostevan H, et al. Guidelines for Management of Incidental Pulmonary Nodules Detected on CT Images: From the Fleischner Society 2017. Radiology. 2017;284(1):228-243. 5. Fatty hepatic infiltration.
[2025-08-07] MEDS: AEROCHAMBER/OPTIHALER 1 UNIT MC (19:24)
[2025-08-07] MEDS: ALBUTEROL-HFA 90MCG/PUFF INHALER 8GM 2 PUFF IH (19:24)
[2025-08-07 19:25] VITALS: BP 133/76; PULSE 80; RESP 18; TEMP 36.8; O2SAT 100
[2025-08-07 19:51] LABS: Hematocrit 40.7 % (37.0-47.0); Hemoglobin 13.7 g/dL (12.2-16.2); Immature Granulocytes % 0.5 %; Mean Corpuscular HGB Conc 33.7 g/dL (31.8-35.4); Mean Corpuscular Hemoglobin 30.8 pg (27.0-31.2); Mean Corpuscular Volume 91.5 fl (81-99); Nucleated Red Blood Cells % 0 %; Platelet Count 299 K/mm3 (142-424); Red Blood Count 4.45 M/mm3 (4.20-5.40); Red Cell Distribution Width-SD 48.5 fL; White Blood Count 18.1 K/mm3 (4.8-10.8)
[2025-08-07 20:06] LABS: Alanine Aminotransferase 32 U/L (12-78); Albumin Level 4.2 g/dl (3.5-5.0); Albumin/Globulin Ratio 1.3 (1.1-1.8); Alkaline Phosphatase 94 U/L (38-126); Anion Gap 11.4 mEq/L (5-15); Aspartate Amino Transferase 41 U/L (14-36); Bilirubin,Total 0.6 mg/dl (0.2-1.3); Blood Urea Nitrogen 21 mg/dl (7-17); Calcium 8.5 mg/dl (8.4-10.2); Carbon Dioxide 21 mmol/L (22.0-30.0); Chloride 106 mmol/L (98-107); Creatinine Clearance Estimated 65 mL/min (50-200); Creatinine,Serum 0.90 mg/dl (0.52-1.04); Estimated Glomerular Filt Rate 66 ml/min (>60); GFR (African American) 80 ML/MIN (>60); Globulin 3.2 g/dL (1.3-3.2); Glucose 102 mg/dl (74-100); Magnesium 2.3 mg/dl (1.6-2.3); Potassium 3.4 mmoL/L (3.5-5.1); Sodium 135 mmol/L (136-145); Total Protein,Serum 7.4 g/dl (6.3-8.2)
[2025-08-07] MEDS: IOPAMIDOL-370 (76%);100ML BOTTLE 75 ML IV (20:28)
[2025-08-07] MEDS: SODIUM CHLORIDE 0.9% 10ML SYR (RAD ONLY) 10 ML IV (20:28)
[2025-08-07 21:53] VITALS: BP 125/74; BP 130/84; PULSE 80; PULSE 95; RESP 18; RESP 20; TEMP 36.6; TEMP 37; O2SAT 100; O2SAT 98
== END 2025-08-07 21:53 | disposition home or self-care (01) ==
PROVIDERS: Nurse Practitioner Family; Emergency Provider Student in an Organized Health Care Education/Training Program; PCP Internal Medicine
DX: J18.9 Pneumonia, unspecified organism (principal); Z88.6 Allergy status to analgesic agent; Z88.0 Allergy status to penicillin; Z88.5 Allergy status to narcotic agent
CPT/HCPCS: 71045; 71260; 80053; 83735; 85025; 87636; 93005; 99284; 99285; Q9967